=== PATIENT | female | born 1955 | race Caucasian/White ===

== ENCOUNTER 2022-02-20 06:44 | Observation (INO) | payer OTHER ==
--- OUTSIDE RECORDS SUMMARY | 2022-02-20 07:02 | XMS REPORT | Continuity of Care Document ---
:1955 Author Organization [facility] t Address [address] [place] [address] Care Team Providers Name Role Phone Raisa Chavarria Attending Clinician Unavailable Ha Hong Attending Clinician Unavailable Nicole Gonsales Attending Clinician Unavailable Payers Payer Name Policy Type Policy Number Effective Date Expiration Date [place] [address] [id number] 2019 [facility] 00:00:[address] [facility] [place] [address] [id number] 2019 [facility] Choice 00:00:[address] [facility] [place] [address] [id number] 2019 Common [facility] Choice 00:00:[address] [facility] [place] [address] [id number] 2019 Common [facility] Choice 00:00:[address] - [facility] [place] [address] [id number] 2019 Common [facility] Choice 00:00:[address] - [facility] [place] [address] [id number] 2019 Common [facility] Choice 00:00:[facility] - [facility] [place] [address] [id number] 2019 Common [facility] t [facility] Choice 00:00:00 - [facility] Problems Condition Condition Condition Status Onset Resolution Last Treating Co mments Source Name Details Category Date Date Treatment Clinician Date [id number] Abnormal Problem Comm on mammogram [facility] [id number] August's Problem Co mmon [id number] esophagus Spirit with low - [facility] grade [facility] [id number] Depression Problem Com mon , Spirit unspecifie - [facility] d depression [facility] [id number] Attention Problem Com mon deficit Spirit disorder, - [facility] unspecifie [facility] hyperactiv [facility] presence [id number] Fatty Problem Common liver [facility] Sinus Sinus Problem Common problem problem [facility] Memory Memory Problem Common deficit deficit [facility] [id number] Seasonal Problem Comm on allergies [facility] Essential Benign Problem Common hypertensi essential Spi rit on HTN [facility] Hyperglyce Hyperglyce Problem C ommon leslie leslie [facility] [id number] Anxiety Problem Common [facility] Thrombocyt Thrombocyt Problem C ommon openia openia [facility] [id number] Chronic Problem Commo n constipati Spirit on [facility] Hyperlipid Hyperlipem Problem C ommon aemia ia [facility] [id number] Chronic Problem Commo n diarrhea [facility] Leukopenia Leukopenia Problem C ommon [facility] [id number] August's Problem Com mon esophageal [facility] ulceration [facility] Allergies, Adverse Reactions, Alerts This patient has no known allergies or adverse reactions. Social History Social Habit Start Date Stop Date Quantity Comments Source History of Tobacco Use Co mmon [facility] Sex Assigned At Com mon [facility] Smoking Status Start Date Stop Date Source Never Smoker [facility] Medications Ordered Filled Start Stop Current Ordering Indication Dosage Frequency Signature Comments Components Source Medication Medication Date Date Medication? Clinician (SIG) Name Name BusPIRone BusPIRone Yes Nicole 1 tablet Common HCl HCl 7-14 Millender as needed Spiri t 00:00: for - [facility] 00 anxiety [facility] Singulair Singulair No 1{table QD Singulair 10 MG 10 MG t_in_th 10 MG e_eveni ng} Losartan Losartan No 1{table QD Losartan Potassium Potassium t} Potassium 100 mg 100 mg 100 mg amLODIPine amLODIPine No 1{table QD amLODIPine Besylate 5 Besylate 5 t} Besylate 5 MG MG MG Pravastatin Pravastatin No Pravastati Sodium 40 Sodium 40 n Sodium MG MG 40 MG Losartan Losartan No 1{table QD Losartan Potassium Potassium t} Potassium 100 mg 100 mg 100 mg busPIRone busPIRone No BID busPIRone HCl 7.5 HCl 7.5 HCl 7.5 Pantoprazol Pantoprazol No Pantoprazo e Sodium 40 e Sodium 40 le Sodium MG MG 40 MG Singulair Singulair No 1{table QD Singulair 10 MG 10 MG t_in_th 10 MG e_eveni ng} Citalopram Citalopram No 1{table QD Citalopram Hydrobromid Hydrobromid t} Hydrobromi e 20 MG e 20 MG de 20 MG Meclizine Meclizine No 1{table Meclizine HCl 25 MG HCl 25 MG t_as_ne HCl 25 MG eded} Cholestyram Cholestyram No Cholestyra ine 4 GM ine 4 GM mine 4 GM amLODIPine amLODIPine No 1{table QD amLODIPine Besylate 5 Besylate 5 t} Besylate 5 MG MG MG Pravastatin Pravastatin No Pravastati Sodium 40 Sodium 40 n Sodium MG MG 40 MG Losartan Losartan No 1{table QD Losartan Potassium Potassium t} Potassium 100 mg 100 mg 100 mg busPIRone busPIRone No BID busPIRone HCl 7.5 HCl 7.5 HCl 7.5 Pantoprazol Pantoprazol No Pantoprazo e Sodium 40 e Sodium 40 le Sodium MG MG 40 MG Singulair Singulair No 1{table QD Singulair 10 MG 10 MG t_in_th 10 MG e_eveni ng} Citalopram Citalopram No 1{table QD Citalopram Hydrobromid Hydrobromid t} Hydrobromi e 20 MG e 20 MG de 20 MG Meclizine Meclizine No 1{table Meclizine HCl 25 MG HCl 25 MG t_as_ne HCl 25 MG eded} Cholestyram Cholestyram No Cholestyra ine 4 GM ine 4 GM mine 4 GM amLODIPine amLODIPine No 1{table QD amLODIPine Besylate 5 Besylate 5 t} Besylate 5 MG MG MG Pravastatin Pravastatin No Pravastati Sodium 40 Sodium 40 n Sodium MG MG 40 MG Losartan Losartan No 1{table QD Losartan Potassium Potassium t} Potassium 100 mg 100 mg 100 mg busPIRone busPIRone No BID busPIRone HCl 7.5 HCl 7.5 HCl 7.5 Pantoprazol Pantoprazol No Pantoprazo e Sodium 40 e Sodium 40 le Sodium MG MG 40 MG Singulair Singulair No 1{table QD Singulair 10 MG 10 MG t_in_th 10 MG e_eveni ng} Citalopram Citalopram No 1{table QD Citalopram Hydrobromid Hydrobromid t} Hydrobromi e 20 MG e 20 MG de 20 MG Meclizine Meclizine No 1{table Meclizine HCl 25 MG HCl 25 MG t_as_ne HCl 25 MG eded} Cholestyram Cholestyram No Cholestyra ine 4 GM ine 4 GM mine 4 GM amLODIPine amLODIPine No 1{table QD amLODIPine Besylate 5 Besylate 5 t} Besylate 5 MG MG MG Pravastatin Pravastatin No Pravastati Sodium 40 Sodium 40 n Sodium MG MG 40 MG Losartan Losartan No 1{table QD Losartan Potassium Potassium t} Potassium 100 mg 100 mg 100 mg busPIRone busPIRone No BID busPIRone HCl 7.5 HCl 7.5 HCl 7.5 Pantoprazol Pantoprazol No Pantoprazo e Sodium 40 e Sodium 40 le Sodium MG MG 40 MG Singulair Singulair No 1{table QD Singulair 10 MG 10 MG t_in_th 10 MG e_eveni ng} Citalopram Citalopram No 1{table QD Citalopram Hydrobromid Hydrobromid t} Hydrobromi e 20 MG e 20 MG de 20 MG Meclizine Meclizine No 1{table Meclizine HCl 25 MG HCl 25 MG t_as_ne HCl 25 MG eded} Cholestyram Cholestyram No Cholestyra ine 4 GM ine 4 GM mine 4 GM Singulair Singulair No 1{table QD Singulair 10 MG 10 MG t_in_th 10 MG e_eveni ng} Pravastatin Pravastatin No Pravastati Sodium 40 Sodium 40 n Sodium MG MG 40 MG Cholestyram Cholestyram No Cholestyra ine 4 GM ine 4 GM mine 4 GM Losartan Losartan No 1{table QD Losartan Potassium Potassium t} Potassium 100 mg 100 mg 100 mg Pantoprazol Pantoprazol No Pantoprazo e Sodium 40 e Sodium 40 le Sodium MG MG 40 MG Meclizine Meclizine No 1{table Meclizine HCl 25 MG HCl 25 MG t_as_ne HCl 25 MG eded} Citalopram Citalopram No 1{table QD Citalopram Hydrobromid Hydrobromid t} Hydrobromi e 20 MG e 20 MG de 20 MG busPIRone busPIRone No BID busPIRone HCl 7.5 HCl 7.5 HCl 7.5 amLODIPine amLODIPine No 1{table QD amLODIPine Besylate 5 Besylate 5 t} Besylate 5 MG MG MG Pravastatin Pravastatin No QD Pravastati Sodium 40 Sodium 40 n Sodium MG MG 40 MG busPIRone busPIRone No BID busPIRone HCl 7.5 HCl 7.5 HCl 7.5 Vitamin D Vitamin D No 1{capsu QD Vitamin D 50 MCG 50 MCG le} 50 MCG (1999) (1999) (1999) Pantoprazol Pantoprazol No Pantoprazo e Sodium 40 e Sodium 40 le Sodium MG MG 40 MG Losartan Losartan No 1{table QD Losartan Potassium Potassium t} Potassium 100 mg 100 mg 100 mg Citalopram Citalopram No 1{table QD Citalopram Hydrobromid Hydrobromid t} Hydrobromi e 20 MG e 20 MG de 20 MG Singulair Singulair No 1{table QD Singulair 10 MG 10 MG t_in_th 10 MG e_eveni ng} amLODIPine amLODIPine No 1{table QD amLODIPine Besylate 5 Besylate 5 t} Besylate 5 MG MG MG Meclizine Meclizine No 1{table Meclizine HCl 25 MG HCl 25 MG t_as_ne HCl 25 MG eded} Cholestyram Cholestyram No Cholestyra ine 4 GM ine 4 GM mine 4 GM Singulair Singulair No 1{table QD Singulair 10 MG 10 MG t_in_th 10 MG e_eveni ng} Vitamin D Vitamin D No 1{capsu QD Vitamin D 50 MCG 50 MCG le} 50 MCG (1999) (1999) (1999) amLODIPine amLODIPine No 1{table QD amLODIPine Besylate 5 Besylate 5 t} Besylate 5 MG MG MG Cholestyram Cholestyram No Cholestyra ine 4 GM ine 4 GM mine 4 GM Pantoprazol Pantoprazol No Pantoprazo e Sodium 40 e Sodium 40 le Sodium MG MG 40 MG busPIRone busPIRone No BID busPIRone HCl 7.5 HCl 7.5 HCl 7.5 Losartan Losartan No 1{table QD Losartan Potassium Potassium t} Potassium 100 mg 100 mg 100 mg Pravastatin Pravastatin No QD Pravastati Sodium 40 Sodium 40 n Sodium MG MG 40 MG Meclizine Meclizine No 1{table Meclizine HCl 25 MG HCl 25 MG t_as_ne HCl 25 MG eded} Citalopram Citalopram No 1{table QD Citalopram Hydrobromid Hydrobromid t} Hydrobromi e 20 MG e 20 MG de 20 MG busPIRone busPIRone No BID busPIRone HCl 7.5 HCl 7.5 HCl 7.5 Montelukast Montelukast No Montelukas Sodium 10 Sodium 10 t Sodium MG MG 10 MG Meclizine Meclizine No 1{table Meclizine HCl 25 MG HCl 25 MG t_as_ne HCl 25 MG eded} Pravastatin Pravastatin No QD Pravastati Sodium 40 Sodium 40 n Sodium MG MG 40 MG Losartan Losartan No 1{table QD Losartan Potassium Potassium t} Potassium 100 mg 100 mg 100 mg amLODIPine amLODIPine No amLODIPine Besylate 5 Besylate 5 Besylate 5 MG MG MG Citalopram Citalopram No 1{table QD Citalopram Hydrobromid Hydrobromid t} Hydrobromi e 20 MG e 20 MG de 20 MG Vitamin D Vitamin D No 1{capsu QD Vitamin D 50 MCG 50 MCG le} 50 MCG (1999) (1999) (1999) Cholestyram Cholestyram No Cholestyra ine 4 GM ine 4 GM mine 4 GM Pantoprazol Pantoprazol No Pantoprazo e Sodium 40 e Sodium 40 le Sodium MG MG 40 MG Cholestyram Cholestyram No Cholestyra ine 4 GM ine 4 GM mine 4 GM Pantoprazol Pantoprazol No Pantoprazo e Sodium 40 e Sodium 40 le Sodium MG MG 40 MG Pravastatin Pravastatin No QD Pravastati Sodium 40 Sodium 40 n Sodium MG MG 40 MG amLODIPine amLODIPine No amLODIPine Besylate 5 Besylate 5 Besylate 5 MG MG MG Vitamin D Vitamin D No 1{capsu QD Vitamin D 50 MCG 50 MCG le} 50 MCG (1999) (1999) (1999) Montelukast Montelukast No Montelukas Sodium 10 Sodium 10 t Sodium MG MG 10 MG Citalopram Citalopram No 1{table QD Citalopram Hydrobromid Hydrobromid t} Hydrobromi e 20 MG e 20 MG de 20 MG Meclizine Meclizine No 1{table Meclizine HCl 25 MG HCl 25 MG t_as_ne HCl 25 MG eded} busPIRone busPIRone No BID busPIRone HCl 7.5 HCl 7.5 HCl 7.5 Losartan Losartan No Losartan Potassium Potassium Potassium 100 MG 100 MG 100 MG B-12 1000 B-12 1000 No 1{table QD B-12 1000 MCG MCG t_under MCG _the_to ngue_an d_allow _to_dis solve} Magnesium Magnesium No 1{table QD Magnesium 250 MG 250 MG t_with_ 250 MG a_meal} Vitamin D3 Vitamin D3 No 1{capsu QD Vitamin D3 50 MCG 50 MCG le} 50 MCG (1999) (1999) (1999) Pravastatin Pravastatin No QD Pravastati Sodium 40 Sodium 40 n Sodium MG MG 40 MG Losartan Losartan No 1{table QD Losartan Potassium Potassium t} Potassium 100 mg 100 mg 100 mg busPIRone busPIRone No BID busPIRone HCl 7.5 HCl 7.5 HCl 7.5 Meclizine Meclizine No 1{table Meclizine HCl 25 MG HCl 25 MG t_as_ne HCl 25 MG eded} Citalopram Citalopram No 1{table QD Citalopram Hydrobromid Hydrobromid t} Hydrobromi e 20 MG e 20 MG de 20 MG Zinc 50 MG Zinc 50 MG No 1{table QD Zinc 50 MG t} Vitamin C Vitamin C No Vitamin C 500 MG 500 MG 500 MG amLODIPine amLODIPine No 1{table QD amLODIPine Besylate 5 Besylate 5 t} Besylate 5 MG MG MG Singulair Singulair No 1{table QD Singulair 10 MG 10 MG t_in_th 10 MG e_eveni ng} Probiotic - Probiotic - No Probiotic - B-12 1000 B-12 1000 No 1{table QD B-12 1000 MCG MCG t_under MCG _the_to ngue_an d_allow _to_dis solve} Magnesium Magnesium No 1{table QD Magnesium 250 MG 250 MG t_with_ 250 MG a_meal} Vitamin D3 Vitamin D3 No 1{capsu QD Vitamin D3 50 MCG 50 MCG le} 50 MCG (1999) (1999) (1999) Pravastatin Pravastatin No QD Pravastati Sodium 40 Sodium 40 n Sodium MG MG 40 MG Losartan Losartan No 1{table QD Losartan Potassium Potassium t} Potassium 100 mg 100 mg 100 mg busPIRone busPIRone No BID busPIRone HCl 7.5 HCl 7.5 HCl 7.5 Meclizine Meclizine No 1{table Meclizine HCl 25 MG HCl 25 MG t_as_ne HCl 25 MG eded} Citalopram Citalopram No 1{table QD Citalopram Hydrobromid Hydrobromid t} Hydrobromi e 20 MG e 20 MG de 20 MG Zinc 50 MG Zinc 50 MG No 1{table QD Zinc 50 MG t} Vitamin C Vitamin C No Vitamin C 500 MG 500 MG 500 MG amLODIPine amLODIPine No 1{table QD amLODIPine Besylate 5 Besylate 5 t} Besylate 5 MG MG MG Singulair Singulair No 1{table QD Singulair 10 MG 10 MG t_in_ 10 MG e_eveni ng} Probiotic - Probiotic - No Probiotic - amLODIPine amLODIPine No 1{table QD amLODIPine Besylate 5 Besylate 5 t} Besylate 5 MG MG MG Pantoprazol Pantoprazol No Pantoprazo e Sodium 40 e Sodium 40 le Sodium MG MG 40 MG busPIRone busPIRone No BID busPIRone HCl 7.5 HCl 7.5 HCl 7.5 Meclizine Meclizine No 1{table Meclizine HCl 25 MG HCl 25 MG t_as_ne HCl 25 MG eded} Cholestyram Cholestyram No Cholestyra ine 4 GM ine 4 GM mine 4 GM Pravastatin Pravastatin Yes Nicole 1 tablet Common Sodium Sodium Millender in evening [facility] Amlodipine Amlodipine Yes Nicole 1 tablet Common Besylate Besylate Millender Sp bal [facility] Meclizine Meclizine Yes Nicole 1 tablet Common HCl HCl Millender as needed Spiri t - [facility] Montelukast Montelukast Yes Nicole 1 tablet Common Sodium Sodium Millender in the Spir it evening [facility] Singulair Singulair Yes Nicole 1 tablet Common Millender in the Spirit evening [facility] Losartan Losartan Yes Nicole 1 tablet Co mmon Potassium Potassium Millender [facility] Pravastatin Pravastatin No QD Pravastati Sodium 40 Sodium 40 n Sodium MG MG 40 MG Citalopram Citalopram No 1{table QD Citalopram Hydrobromid Hydrobromid t} Hydrobromi e 20 MG e 20 MG de 20 MG Immunizations Ordered Immunization Filled Immunization Date Status Commen ts Source Name Name Moderna COVID-19 Moderna COVID-19 2021-01-02 Completed Co mmon [facility] Vaccine Vaccine 15:06:00 [facility] Moderna COVID-19 Moderna COVID-19 2021-01-02 Completed Co mmon [facility] Vaccine Vaccine 15:06:00 [facility] Moderna COVID-19 Moderna COVID-19 2021-01-02 Completed Co mmon [facility] Vaccine Vaccine 15:06:00 [facility] Moderna COVID-19 Moderna COVID-19 2020-07-11 Completed Co mmon [facility] Vaccine Vaccine 15:08:00 [facility] Moderna COVID-19 Moderna COVID-19 2020-07-11 Completed Co mmon [facility] Vaccine Vaccine 15:08:00 [facility] Moderna COVID-19 Moderna COVID-19 2020-07-11 Completed Co mmon [facility] Vaccine Vaccine 15:08:00 [facility] Moderna COVID-19 Moderna COVID-19 2020-06-05 Completed Co mmon [facility] Vaccine Vaccine 15:11:00 [facility] Moderna COVID-19 Moderna COVID-19 2020-06-05 Completed Co mmon [facility] Vaccine Vaccine 15:11:00 [facility] Moderna COVID-19 Moderna COVID-19 2020-06-05 Completed Co mmon [facility] Vaccine Vaccine 15:11:00 - [facility] Vital Signs Vital Name Observation Time Observation Value Comments Source height 2021-10-19 14:00:00 67 [in_i] Common [facility] weight 2021-10-19 14:00:00 184 [lb_av] [facility] temperature 2021-10-19 14:00:00 97.9 [degF] Common [facility] bmi 2021-10-19 14:00:00 28.82 kg/m2 [facility] oximetry 2021-10-19 14:00:00 98 % [facility] respiratory rate 2021-10-19 14:00:00 18 /min Comm on [facility] blood pressure 2021-10-19 14:00:00 138 mm[Hg] [facility] - systolic [facility] blood pressure 2021-10-19 14:00:00 70 mm[Hg] Common [facility] - diastolic [facility] height 2021-07-05 14:00:00 67 [in_i] [facility] weight 2021-07-05 14:00:00 181 [lb_av] [facility] temperature 2021-07-05 14:00:00 97.0 [degF] [facility] bmi 2021-07-05 14:00:00 28.35 kg/m2 [facility] oximetry 2021-07-05 14:00:00 99 % [facility] respiratory rate 2021-07-05 14:00:00 16 /min Comm on [facility] blood pressure 2021-07-05 14:00:00 124 mm[Hg] Common [facility] - systolic [facility] blood pressure 2021-07-05 14:00:00 64 mm[Hg] Common [facility] - diastolic [facility] height 2021-05-12 13:00:00 67 [in_i] Common [facility] weight 2021-05-12 13:00:00 176 [lb_av] Common [facility] temperature 2021-05-12 13:00:00 96.9 [degF] Common [facility] bmi 2021-05-12 13:00:00 27.56 kg/m2 Common [facility] blood pressure 2021-05-12 13:00:00 128 mm[Hg] Common [facility] - systolic [facility] blood pressure 2021-05-12 13:00:00 58 mm[Hg] Common [facility] - diastolic [facility] height 2021-02-09 10:00:00 67 [in_i] Common [facility] weight 2021-02-09 10:00:00 177 [lb_av] [facility] temperature 2021-02-09 10:00:00 98.1 [degF] [facility] bmi 2021-02-09 10:00:00 27.72 kg/m2 [facility] oximetry 2021-02-09 10:00:00 99 % [facility] respiratory rate 2021-02-09 10:00:00 16 /min Comm on [facility] blood pressure 2021-02-09 10:00:00 134 mm[Hg] Common [facility] - systolic [facility] blood pressure 2021-02-09 10:00:00 69 mm[Hg] Common [facility] - diastolic [facility] Procedures This patient has no known procedures. Encounters Start End Encounter Admission Attending Care Care Encounter Source Date/Time Date/Time Type Type Clinicians Facility Department ID 2022-01-19 Outpatient MelletteHALINA trevino [facility] [id number] Common 09:21:01 Raisa [facility] 2022-01-14 [facility] [id number] Common 08:49:00 Raisa [facility] 2021-07-01 Outpatient MelletteHALINA trevino [facility] [id number] Common 10:53:00 Raisa [facility] 2021-05-26 Outpatient Mellette, STLMLC STLMLC [id number] Common 14:33:34 Raisa [facility] 2021-05-26 Outpatient Mellette, STLMLC STLMLC [id number] Common 12:21:49 Raisa [facility] 2021-05-26 Outpatient Mellette, STLMLC STLMLC [id number] Common 12:20:26 Raisa [facility] 2021-05-26 Outpatient Hal, Ha STLMLC STLMLC [id number] Common 12:12:20 [id number] [facility] 2021-05-26 Outpatient STLMLC STLMLC [id number] Common 12:11:22 [id number] [facility] 2021-05-26 Outpatient Millender, STLMLC STLMLC [id number] Common 11:56:30 Nicole [id number] [facility] 2021-05-26 Outpatient Millender, STLMLC STLMLC [id number] Common 11:06:46 Nicole [id number] [facility] 2021-05-26 Outpatient Millender, STLMLC STLMLC [id number] Common 11:04:09 Nicole [id number] [facility] 2021-05-26 Outpatient Millender, STLMLC STLMLC [id number] Common 11:03:53 Nicole [id number] [facility] 2021-05-26 Outpatient Millender, STLMLC STLMLC [id number] Common 11:02:30 Nicole [id number] [facility] 2021-05-26 Outpatient Millender, STLMLC STLMLC [id number] Common 10:59:33 Nicole [id number] [facility] 2022-01-17 2022-01-17 (TEL) STLMLC STLMLC [id number] Co mmon 00:00:00 00:00:00 [facility] 2021-10-19 2021-10-19 OFFICE STLMLC STLMLC [id number] Co mmon 00:00:00 00:00:00 VISIT EST Spir it PT LEVEL 3 - [facility] 2021-07-05 2021-07-05 OFFICE STLMLC STLMLC [id number] Co mmon 00:00:00 00:00:[address] [facility] ESTAB PT - CHI LEVEL 4 [facility] 2021-05-12 2021-05-12 OFFICE STLMLC STLMLC [id number] Co mmon 00:00:00 00:00:[address] [facility] ESTAB PT - CHI LEVEL 4 [facility] 2021-04-29 2021-04-29 (TEL) STLMLC STLMLC [id number] Co mmon 00:00:00 00:00:00 [facility] 2021-03-30 2021-03-30 (TEL) STLMLC STLMLC [id number] Co mmon 00:00:00 00:00:00 [facility] 2021-03-29 2021-03-29 (TEL) STLMLC STLMLC [id number] Co mmon 00:00:00 00:00:00 [facility] 2021-03-26 2021-03-26 (TEL) STLMLC STLMLC [id number] Co mmon 00:00:00 00:00:00 [facility] 2021-03-22 2021-03-22 (TEL) STLMLC STLMLC [id number] Co mmon 00:00:00 00:00:00 [facility] 2021-02-09 2021-02-09 OFFICE STLMLC STLMLC [id number] Co mmon 00:00:00 00:00:[address] [facility] ESTAB PT - CHI LEVEL 4 [facility] 2020-11-30 2020-11-30 (TEL) STLMLC STLMLC [id number] Co mmon 00:00:00 00:00:00 [facility] 2020-11-27 2020-11-27 (TEL) STLMLC STLMLC [id number] Co mmon 00:00:00 00:00:00 [facility] 2020-08-25 2020-08-25 Outpatient STLMLC STLMLC [id number] Common 00:00:00 00:00:00 [facility] 2020-08-11 2020-08-11 Outpatient STLMLC STLMLC [id number] Common 00:00:00 00:00:00 [facility] 2020-06-19 2020-06-19 Outpatient STLMLC STLMLC [id number] Common 00:00:00 00:00:00 [facility] 2020-05-19 2020-05-19 Outpatient STLMLC STLMLC [id number] Common 00:00:00 00:00:00 [facility] 2020-02-19 2020-02-19 Outpatient STLMLC STLMLC [id number] Common 00:00:00 00:00:00 [facility] 2019-11-12 2019-11-12 [id number] Common 11:00:00 11:00:00 t [facility] Road [facility] 2019-11-11 2019-11-11 [facility] [id number] Common 11:29:00 11:29:[address] [facility] [address] [facility] it Road [facility] 2019-06-13 2019-06-13 [facility] [id number] Common 08:25:00 08:25:[address] [facility] [address] [facility] it Road [facility] 2019-06-11 2019-06-11 Outpatient [facility] [id number] Common 11:15:00 11:15:[address] [facility] [address] [facility] it Road [facility] 2019-05-30 2019-05-30 [facility] [id number] Common 14:30:00 14:30:[address] [facility] [address] [facility] it Road [facility] 2019-05-10 2019-05-10 [facility] [id number] Common 08:20:00 08:20:[address] [facility] [address] [facility] it Road [facility] 2017-08-14 2017-08-14 [facility] [id number] Common 10:15:00 10:15:00 [facility] 2017-08-02 2017-08-02 Outpatient Asiya Banerjee [id number] Common 13:30:00 13:30:00 [facility] Results This patient has no known results.
[2022-02-20 07:33] LABS: Absolute Lymphocytes (CBC) 1.3 K/uL (0.7-4.9); Hematocrit 39.9 % (36.0-45.0); Lymphocytes % 31.4 % (15.3-44.8); MCV 95.3 fL (80-100); MPV 9.8 fL (7.6-11.3); RBC Red Blood Cell Count 4.19 M/uL (3.86-4.86)
[2022-02-20 07:41] LABS: SARS-CoV-2 Antigen Rapid Res Negative (Negative)
[2022-02-20 07:50] LABS: Albumin 3.6 g/dL (3.4-5.0); Bilirubin Direct 0.2 mg/dL (0-0.2); Bilirubin Total 0.7 mg/dL (0.2-1.0); Protein, Total 7.2 g/dL (6.4-8.2); Troponin High Sensitivity 7.1 pg/mL (<58.9)
--- NOTE | 2022-02-20 08:21 | RAD REPORT ---
EXAM DESCRIPTION: RAD - Chest Single View - 02/20/2022 8:04 am CLINICAL HISTORY: CHEST PAIN COMPARISON: Chest Single View dated 01/02/2017; Chest Single View dated 01/02/2017; Chest Single View da mukesh 12/09/2015 FINDINGS: Lines: None. Lungs: No evidence of edema or pneumonia. Pleural: No significant pleural effusions or pneumothorax. Cardiac: The heart size is within normal limits. Mediastinum: Within normal limits. Bones: No acute fractures. Other: None IMPRESSION: No acute cardiopulmonary disease.
--- NOTE | 2022-02-20 08:33 | RAD REPORT ---
EXAM DESCRIPTION: CT - Chest For Pe Angio - 02/20/2022 8:22 am CLINICAL HISTORY: chest pain, elevated d-dimer COMPARISON: Chest Single View dated 02/20/2022 TECHNIQUE: Dynamically enhanced axial 3 mm thick images of the chest were obtained during administra tion of <100> mL Isovue 370 IV contrast. Coronal and oblique reconstruction images were generated and reviewed. Exam utilizes a protocol for optimal evaluation of pulmonary arterial tree. Maximum intensity projections 3D imaging was utilized All CT scans are performed using dose optimization technique as appropriate and may include automated exposure control or mA/KV adjustment according to patient size. FINDINGS: Chest Wall: No suspicious thyroid nodules or pathologic lymphadenopathy. Lungs: No acute abnormality. Pleura: No significant effusions or pneumothorax. Mediastinum/zeina: No pathologic lymphadenopathy. Pulmonary arteries/Aorta: No filling defect identified. No aortic aneurysm. Heart: No significant pericardial effusion. Normal heart size. Upper abdomen: No acute abnormality.Cholecystectomy. Bones: No acute abnormality. IMPRESSION: Negative for pulmonary embolism. No other acute findings in the chest.
--- NOTE | 2022-02-20 08:58 | EDPHYS ---
Physician Documentation [facility] Name: Korin Coon Age: 66 yrs Sex: Female : 1955 Arrival Date: 02/20/2022 Time: 06:52 Bed 5 Private MD: ED Physician Lopez Gomes HPI: 02/20 07:11 This 66 yrs old Female presents to ER via Unassigned with complaints of Chest Pressure, rn Arm Pain. 07:11 The patient or guardian reports chest pain that is located primarily in the substernal rn area. Onset: last night. The pain radiates to the left arm. Associated signs and symptoms: Pertinent positives: None. Pertinent negatives: abdominal pain, cough, diaphoresis, headache, palpitations, shortness of breath, syncope, vomiting. The chest pain is described as dull, a heaviness. Duration: The patient or guardian reports multiple episodes, that are intermittent. Modifying factors: The symptoms are alleviated by nothing. the symptoms are aggravated by nothing. Severity of pain: At its worst the pain was mild in the emergency department the pain has improved. The patient has not experienced similar symptoms in the past. The patient has not recently seen a physician. Pt reports chest heaviness/dull, began last night, intermittent, mild. Has also been having left arm tingling but states arm is more constant and present for 1 week. No fever/cough/sob. No hx of cardiac event. Is making appt with Dr. carrasco but hasn't seen him recently. Pt states has been feeling very stressed lately and feels like this is stress related.. Historical: - Allergies: 07:15 No Known Allergies; bb - Home Meds: 07:15 amlodipine 5 mg tab 1 tab once daily [Active]; losartan 100 mg Oral tab 1 tab once bb daily [Active]; montelukast 10 mg Oral tab 1 tab once daily [Active]; pravastatin 40 mg Oral tab 1 tab once daily [Active]; buspirone 7.5 mg Oral tab [Active]; Celexa 10 mg Oral tab 1 tab once daily [Active]; Protonix Oral [Active]; cholestyramine (with sugar) oral [Active]; - PMHx: 07:15 Depression; Hyperlipidemia; Hypertension; Vertigo; bb - Immunization history:: Moderna x 3. - Social history:: Smoking status: Patient denies any tobacco usage or history of. Patient/guardian denies using alcohol, street drugs. - Family history:: not pertinent. - Hospitalizations: : No recent hospitalization is reported. ROS: 07:11 Constitutional: Negative for fever, chills, and weight loss, Eyes: Negative for injury, rn pain, redness, and discharge, Neck: Negative for injury, pain, and swelling, Cardiovascular: Negative for palpitations, and edema, Respiratory: Negative for shortness of breath, cough, wheezing, and pleuritic chest pain, Abdomen/GI: Negative for abdominal pain, nausea, vomiting, diarrhea, and constipation, Back: Negative for injury and pain, MS/Extremity: Negative for injury and deformity, Skin: Negative for injury, rash, and discoloration, Neuro: Negative for headache, weakness and seizure Exam: 07:11 Constitutional: This is a well developed, well nourished patient who is awake, alert, rn and in no acute distress. Ambulatory to room without difficulty Head/Face: Normocephalic, atraumatic. Eyes: Pupils equal round and reactive to light, extra-ocular motions intact. Periorbital areas with no swelling, redness, or edema. Cardiovascular: Regular rate and rhythm. No pulse deficits. Respiratory: No increased work of breathing, no retractions or nasal flaring. Abdomen/GI: Soft, non-tender Skin: Warm, dry MS/ Extremity: Pulses equal, no cyanosis. Neuro: Awake and alert, GCS 15, oriented to person, place, time, and situation. Cranial nerves II-XII grossly intact. Motor strength 5/5 in all extremities. Sensory grossly intact. Cerebellar exam normal. Normal gait. 07:19 ECG was reviewed by the Attending Physician. rn Vital Signs: 07:13 BP 143 / 99; Pulse 78; Resp 16 S; Temp 98.6(O); Pulse Ox 99% on R/A; Weight 83.91 kg bb (R); Height 5 ft. 6 in. (167.64 cm) (R); Pain 0/10; 07:15 BP 155 / 80; Pulse 73; Resp 14; Pulse Ox 100% on R/A; ld1 11:08 BP 142 / 79; Pulse 63; Resp 15; Pulse Ox 100% on R/A; Pain 0/10; ld1 07:13 Body Mass Index 29.86 (83.91 kg, 167.64 cm) bb MDM: 06:58 Patient medically screened. rn 08:54 HEART Score: History: Moderately Suspicious (1), ECG: Non specific repolarization rn disturbance / LBTB / PM (1), Age: > or = 65 years (2), Risk Factors: 1 or 2 risk factors (1), Troponin: < or = 1 x Normal Limit (0), Total Score = 5. Data reviewed: vital signs, nurses notes. 08:55 Differential diagnosis: acute myocardial infarction, acute pericarditis, anxiety, rn coronary artery disease costochondritis, esophagitis, gastritis, gastroesophageal reflux disease (GERD), pericarditis, pleurisy, pneumothorax, pulmonary embolus, stable angina. The patient was given aspirin in the Emergency Department. Counseling: I had a detailed discussion with the patient and/or guardian regarding: the historical points, exam findings, and any diagnostic results supporting the discharge/admit diagnosis, lab results, radiology results, the need for further work-up and treatment in the hospital. Admission orders: after a detailed discussion of the patient's condition and case, the admit orders are written by me. 02/20 07:10 Order name: Basic Metabolic Panel; Complete Time: 07:55 rn 02/20 07:10 Order name: CBC with Diff rn 02/20 07:10 Order name: D-Dimer; Complete Time: 07:55 rn 02/20 07:10 Order name: LFT's; Complete Time: 07:55 rn 02/20 07:10 Order name: NT PRO-BNP; Complete Time: 07:55 rn 02/20 07:10 Order name: Troponin HS; Complete Time: 07:55 rn 02/20 07:10 Order name: XRAY Chest (1 view); Complete Time: 08:35 rn 02/20 07:10 Order name: EKG; Complete Time: 07:11 rn 02/20 07:10 Order name: SARS RAPID rn 02/20 07:40 Order name: CBC with Automated Diff; Complete Time: 07:55 EDMS 02/20 07:41 Order name: SARS-COV-2 Antigen Rapid; Complete Time: 07:55 EDMS 02/20 07:56 Order name: CT Chest For PE Angio; Complete Time: 08:35 rn 02/20 07:10 Order name: Cardiac monitoring; Complete Time: 07:11 rn 02/20 07:10 Order name: EKG - Nurse/Tech; Complete Time: 07: rn 02/20 07:10 Order name: IV Saline Lock; Complete Time: : rn 02/20 07:10 Order name: Labs collected and sent; Complete Time: : rn 02/20 07:10 Order name: O2 Per Protocol; Complete Time: : rn 02/20 07:10 Order name: O2 Sat Monitoring; Complete Time: 07: rn EC: Rate is 71 beats/min. Rhythm is regular. Left axis deviation noted. QRS is positive in rn lead I and negative in lead aVF. ND interval is normal. QRS interval is normal. QT interval is normal. No Q waves. T waves are Normal. No ST changes noted. Clinical impression: NSR w/ Non-specific ST/T Changes. Interpreted by me. Reviewed by me. Administered Medications: 09:19 Drug: GI Cocktail without - (Maalox Suspension 30 ml, Lidocaine Liquid 2 % 15 ld1 ml) Route: PO; 09:20 Drug: Aspirin Chewable Tablet 324 mg Route: PO; ld1 Disposition Summary: 02/20/22 08:58 Hospitalization Ordered Hospitalization Status: Observation rn Provider: Julián Anthony rn Location: Telemetry/MedSurg (observation) rn Condition: Stable rn Problem: new rn Symptoms: have improved rn Bed/Room Type: Standard rn Room Assignment: 424(02/20/22 11:28) eb Diagnosis - Chest pain, unspecified rn Forms: - Medication Reconciliation Form rn - SBAR form rn Signatures: Dispatcher [employer] Nicolasa Pack RN RN Lopez Donovan MD MD rn Botello, Elizabeth eb Dibbern, Lauren, RN RN ld1 Corrections: (The following items were deleted from the chart) 11: 08:58 rn eb
--- NOTE | 2022-02-20 08:58 | ER ---
Nurse's Notes [facility] Name: Korin Coon Age: 66 yrs Sex: Female : 1955 Arrival Date: 02/20/2022 Time: 06:52 Bed 5 Private MD: Diagnosis: Chest pain, unspecified Presentation: 02/20 07:13 Chief complaint: Patient states: she has had left arm numbness for a week and has been bb feeling some chest discomfort with nausea and she is not sure if it's her heart or a panic attack as she has been feeling very stressed. Coronavirus screen: At this time, the client does not indicate any symptoms associated with coronavirus-19. Ebola Screen: No symptoms or risks identified at this time. Initial Sepsis Screen: Does the patient meet any 2 criteria? No. Patient's initial sepsis screen is negative. Does the patient have a suspected source of infection? No. Patient's initial sepsis screen is negative. Risk Assessment: Do you want to hurt yourself or someone else? Patient reports no desire to harm self or others. Onset of symptoms was January 2022. 07:13 Method Of Arrival: Ambulatory bb 07:13 Acuity: MAYCOL 3 bb Historical: - Allergies: 07:15 No Known Allergies; bb - Home Meds: 07:15 amlodipine 5 mg tab 1 tab once daily [Active]; losartan 100 mg Oral tab 1 tab once bb daily [Active]; montelukast 10 mg Oral tab 1 tab once daily [Active]; pravastatin 40 mg Oral tab 1 tab once daily [Active]; buspirone 7.5 mg Oral tab [Active]; Celexa 10 mg Oral tab 1 tab once daily [Active]; Protonix Oral [Active]; cholestyramine (with sugar) oral [Active]; - PMHx: 07:15 Depression; Hyperlipidemia; Hypertension; Vertigo; bb - Immunization history:: Moderna x 3. - Social history:: Smoking status: Patient denies any tobacco usage or history of. Patient/guardian denies using alcohol, street drugs. - Family history:: not pertinent. - Hospitalizations: : No recent hospitalization is reported. Screenin:15 Abuse screen: Denies threats or abuse. Denies injuries from another. Nutritional ld1 screening: No deficits noted. Tuberculosis screening: No symptoms or risk factors identified. Fall Risk None identified. Assessment: 07:15 General: Appears in no apparent distress. comfortable, Behavior is calm, cooperative, ld1 appropriate for age. Pain: Complains of pain in chest Pain does not radiate. Pain currently is 5 out of 10 on a pain scale. Quality of pain is described as throbbing, Pain began suddenly, Is intermittent. Neuro: Level of Consciousness is awake, alert, obeys commands, Oriented to person, place, time, situation. Cardiovascular: Capillary refill < 3 seconds Patient's skin is warm and dry. Rhythm is sinus rhythm. Respiratory: Airway is patent Respiratory effort is even, unlabored. GI: Abdomen is flat, non-distended. 07:15 : No signs and/or symptoms were reported regarding the genitourinary system. EENT: No ld1 signs and/or symptoms were reported regarding the EENT system. Derm: No signs and/or symptoms reported regarding the dermatologic system. Musculoskeletal: No signs and/or symptoms reported regarding the musculoskeletal system. Vital Signs: 07:13 BP 143 / 99; Pulse 78; Resp 16 S; Temp 98.6(O); Pulse Ox 99% on R/A; Weight 83.91 kg bb (R); Height 5 ft. 6 in. (167.64 cm) (R); Pain 0/10; 07:15 BP 155 / 80; Pulse 73; Resp 14; Pulse Ox 100% on R/A; ld1 11:08 BP 142 / 79; Pulse 63; Resp 15; Pulse Ox 100% on R/A; Pain 0/10; ld1 07:13 Body Mass Index 29.86 (83.91 kg, 167.64 cm) bb ED Course: 06:52 Patient arrived in ED. ja2 06:58 Lopez Gomes MD is Attending Physician. rn 07:11 Sharon Sewell, CARIDAD is Primary Nurse. ld1 07:15 Triage completed. bb 07:15 Arm band placed on Patient placed in an exam room, on a stretcher, on compliance monitor, bb on pulse oximetry. EKG completed in triage. Results shown to MD. 07:15 Patient has correct armband on for positive identification. Placed in gown. Bed in low ld1 position. Call light in reach. Side rails up X2. manager monitoring on. Pulse ox on. NIBP on. Door closed. Noise minimized. Warm blanket given. 07:15 No provider procedures requiring assistance completed. Patient maintains SpO2 ld1 saturation greater than 95% on room air. 07:19 Inserted saline lock: 20 gauge in left antecubital area, using aseptic technique. Blood ld1 collected. 07:27 SARS RAPID Sent. ld1 08:06 XRAY Chest (1 view) In Process Unspecified. EDMS 08:24 CT Chest For PE Angio In Process Unspecified. EDMS 08:57 Julián Anthony is Hospitalizing Provider. rn 11:49 Patient admitted, IV remains in place. ld1 Administered Medications: 09:19 Drug: GI Cocktail without - (Maalox Suspension 30 ml, Lidocaine Liquid 2 % 15 ld1 ml) Route: PO; 09:20 Drug: Aspirin Chewable Tablet 324 mg Route: PO; ld1 Medication: 07:15 VIS not applicable for this client. ld1 Outcome: 08:58 Decision to Hospitalize by Provider. rn 11:49 Admitted to Med/surg accompanied by nurse, via wheelchair, room 424, with chart, Report ld1 called to CARIDAD Galindo 11:49 Condition: stable 11:49 Instructed on the need for admit. 12:08 Patient left the ED. ld1 Signatures: Dispatcher [employer] Nicolasa Pack RN RN bb Nieto, Roman, MD MD rn Dibbern, Lauren, RN RN ld1 Lana Bowers
[2022-02-20] MEDS ORDERED: ASPIRIN 81 MG CHEWABLE TABLET ONE (09:04)
[2022-02-20] MEDS ORDERED: MAGNES/ALUMIN/SIMET 30ML UCUP ONE (09:04)
[2022-02-20] MEDS ORDERED: LIDOCAINE VISCOUS 2% SOLN 15 ML UDC ONE (09:04)
--- NOTE | 2022-02-20 11:30 | P.HP ---
Certification for Inpatient Patient admitted to: Observation With expected LOS: <2 Midnights Practitioner: I am a practitioner with admitting privileges, knowledge of patient current condition, hospital course, and medical plan of care. Services: Services provided to patient in accordance with Admission requirements found in Title 42 Section 412.3 of the Code of Federal Regulations Patient History Date of Service: 02/20/22 Reason for admission: Chest tightness History of Present Illness: 66-year-old man with a history of hypertension hyperlipidemia presented to the emergency department with a complaint of chest tightness and tingling sensation in the left which has been present since last night. Patient states that his symptoms were preceded by bouts of anxiety attacks. She states that she has a stressful job. She denies shortness of breath or coughing or abdominal pain. Initial troponin in the ED is negative. EKG demonstrates sinus rhythm with right bundle branch block and nondiagnostic for ischemia. D-dimer was elevated. CTA thorax done negative for pulmonary embolism or acute infiltrate. Her last stress test and echocardiogram were in 2017 and they were unremarkable. Patient is placed on observation for ACS rule out. Allergies No Known Allergies Allergy (Verified 01/02/17 22:22) Home Medications: Losartan Potassium 100 mg PO DAILY 12/09/15 Montelukast Sodium [Singulair] 10 mg PO DAILY 12/09/15 Pravastatin [Pravachol*] 40 mg PO BEDTIME 12/09/15 Amlodipine [Norvasc*] 5 mg PO DAILY #30 tab 12/10/15 Ciprofloxacin HCl [Cipro 500 MG Tablet] 55 mg PO BID 01/02/17 Citalopram Hydrobromide [Citalopram HBr] 20 mg PO DAILY 01/02/17 Hydrocodone 7.5/APAP 325 [Rule 7.5/325 mg*] 1 tab PO Q4H PRN tab 01/05/17 - Past Medical/Surgical History Diabetic: No -: Hypertension -: Vertigo -: Hyperlipidemia -: ADD -: Allergic rhinitis -: History of migraines -: History of IV drug use, 20 years ago -: Tubal ligation Psychosocial/ Personal History: Patient is currently . She has 3 children. 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 - Family History Mother -: Stroke Father -: Hypertension, Diabetes, Cancer Notes: esophageal cancer - Social History Alcohol use: No CD- Drugs: No Caffeine use: Yes Review of Systems Other: Except as documented, all other systems reviewed and negative. Physical Examination - Physical Exam General: Alert, In no apparent distress, Oriented x3 HEENT: Mucous membr. moist/pink Neck: Supple, JVD not distended Respiratory: Clear to auscultation bilaterally, Normal air movement Cardiovascular: No edema, Regular rate/rhythm, Normal S1 S2 Gastrointestinal: Normal bowel sounds, Soft and benign, Non-distended, No tenderness Musculoskeletal: No swelling, No tenderness Integumentary: No rashes, No cyanosis Neurological: Normal strength at 5/5 x4 extr, Cranial nerves 3-12 intact Lymphatics: No axilla or inguinal lymphadenopathy - Studies Laboratory Data (last 24 hrs) 02/20/22 07:19: WBC 4.20 L, Hgb 13.4, Hct 39.9, Plt Count 133 L 02/20/22 07:19: Sodium 142, Potassium 4.0, BUN 19 H, Creatinine 0.90, Glucose 112 H, Total Bilirubin 0.7, AST 24, ALT 38, Alkaline Phosphatase 102 Assessment and Plan - Problems (Diagnosis) (1) Chest tightness Current Visit: Yes Status: Acute (2) Right bundle branch block (RBBB) on electrocardiogram (ECG) Onset Date: 12/10/15 Current Visit: No Status: Acute (3) Hyperlipidemia Onset Date: 12/10/15 Current Visit: No Status: Chronic Qualifiers: (4) Hypertension Onset Date: 12/10/15 Current Visit: No Status: Chronic (5) Anxiety disorder Current Visit: Yes Status: Acute - Plan Placed under observation and telemetry. Trend troponin. Aspirin Check lipid profile. Symptoms management-Xanax as needed for anxiety. Continue home medications for GERD. Will obtain nuclear stress test if troponin trend negative. - Advance Directives Does patient have a Living Will: No Does patient have a Durable POA for Healthcare: No
[2022-02-20] MEDS ORDERED: NITROGLYCERIN 0.4 MG/TAB SL PRN (11:46)
[2022-02-20] MEDS ORDERED: ALPRAZOLAM 0.25 MG TABLET PO PRN (11:46)
[2022-02-20] MEDS ORDERED: MORPHINE 2 MG/ML SYR IV PRN (12:20)
[2022-02-20 12:23] VITALS: BMI 29.8
[2022-02-20] MEDS: ENOXAPARIN 40 MG/0.4 ML SQ SCH (12:52)
[2022-02-20 12:56] LABS: Troponin High Sensitivity 7.9 pg/mL (<58.9)
[2022-02-20] MEDS ORDERED: INFLUENZA VACCINE (for 6+ mo) 0.5 ML DOSE IMVAC ONE (16:00)
[2022-02-20] MEDS ORDERED: PNEUMOCOCCAL VACCINE 0.5 ML IMVAC ONE (16:00)
[2022-02-21 03:00] VITALS: O2SAT 97
[2022-02-21 05:49] LABS: Absolute Lymphocytes (CBC) 1.4 K/uL (0.7-4.9); Hematocrit 38.9 % (36.0-45.0); Lymphocytes % 28.1 % (15.3-44.8); MCV 95.2 fL (80-100); MPV 9.6 fL (7.6-11.3); RBC Red Blood Cell Count 4.09 M/uL (3.86-4.86)
[2022-02-21 05:58] LABS: Potassium 4.7 mmol/L (3.5-5.1)
[2022-02-21] MEDS ORDERED: REGADENOSON 0.4 MG/5 ML SYR IV ONE (07:48)
[2022-02-21] MEDS: ENOXAPARIN 40 MG/0.4 ML SQ SCH (08:02)
[2022-02-21] MEDS ORDERED: ASPIRIN EC 81 MG TAB PO SCH (09:00)
--- NOTE | 2022-02-21 11:23 | RAD REPORT ---
EXAM DESCRIPTION: NM - Rest Stress Cardiac Imaging - 02/21/2022 10:58 am CLINICAL HISTORY: Chest pain Chest pain. COMPARISON: Rest Stress Cardiac Imaging dated 01/03/2017 TECHNIQUE: The patient was administered approximately 10mCi of Tc 99m Sestamibi prior to resting SPE CT imaging of the heart. The patient was then administered approximately 30 mCi of Tc 99m Sestamibi f ollowing exercise or pharmacologic stress. Multiplanar SPECT images were reviewed. FINDINGS: No stress induced ischemic defect is seen to suggest stress induced ischemia. No fixed def ect is seen to suggest hibernating myocardium or scarred myocardium. The end diastolic volume is 49 ml, the end systolic volume is 7 ml, and the ejection fraction is 86 % . IMPRESSION: No stress induced ischemia.
[2022-02-21 12:06] VITALS: BP 140/74; TEMP 98.6
--- NOTE | 2022-02-21 13:09 | P.DS ---
Admission Date: 02/20/22 Discharge Date: 02/21/22 Disposition: ROUTINE DISCHARGE Discharge Condition: FAIR Reason for Admission: Chest tightness - Problems (1) Chest tightness Current Visit: Yes Status: Acute (2) Right bundle branch block (RBBB) on electrocardiogram (ECG) Onset Date: 12/10/15 Current Visit: No Status: Acute (3) Hyperlipidemia Onset Date: 12/10/15 Current Visit: No Status: Chronic Qualifiers: (4) Hypertension Onset Date: 12/10/15 Current Visit: No Status: Chronic (5) Anxiety disorder Current Visit: Yes Status: Acute Brief History of Present Illness: 66-year-old man with a history of hypertension hyperlipidemia presented to the emergency department with a complaint of chest tightness and tingling sensation in the left which has been present since last night. Patient states that his symptoms were preceded by bouts of anxiety attacks. She states that she has a stressful job. She denies shortness of breath or coughing or abdominal pain. Initial troponin in the ED is negative. EKG demonstrates sinus rhythm with right bundle branch block and nondiagnostic for ischemia. D-dimer was elevated. CTA thorax done negative for pulmonary embolism or acute infiltrate. Her last stress test and echocardiogram were in 2017 and they were unremarkable. Patient placed on observation for ACS rule out. Hospital Course: Patient placed under observation on the medical floor. Patient's troponin was negative. She was asymptomatic. She reported recent anxiety attack. I suspect patient has some form of reactive airway disease which is contributing to her symptoms. Note that she takes Singulair at home. She is also on multiple antianxiety medications. Nuclear stress test done did not show any stress- induced ischemia. ACS ruled out and patient is deemed stable for discharge. Vital Signs/Physical Exam: Temp Pulse Resp BP Pulse Ox 98.6 F 75 18 140/74 97 02/21/22 12:00 02/21/22 12:00 02/21/22 12:00 02/21/22 12:00 02/21/22 12:00 General: Alert, In no apparent distress, Oriented x3 HEENT: Mucous membr. moist/pink Neck: Supple, JVD not distended Respiratory: Clear to auscultation bilaterally, Normal air movement Cardiovascular: No edema, Regular rate/rhythm, Normal S1 S2 Gastrointestinal: Soft and benign, Non-distended Musculoskeletal: No swelling Integumentary: No rashes Neurological: Normal strength at 5/5 x4 extr, Cranial nerves 3-12 intact Laboratory Data at Discharge: WBC 5.10 K/uL (4.3-10.9) 02/21/22 05:20 Hgb 13.4 g/dL (12.0-15.0) 02/21/22 05:20 Hct 38.9 % (36.0-45.0) 02/21/22 05:20 Plt Count 120 K/uL (152-406) L 02/21/22 05:20 Sodium 140 mmol/L (136-145) 02/21/22 05:20 Potassium 4.7 mmol/L (3.5-5.1) D 02/21/22 05:20 BUN 21 mg/dL (7-18) H 02/21/22 05:20 Creatinine 0.79 mg/dL (0.55-1.3) 02/21/22 05:20 Glucose 114 mg/dL (74-106) H 02/21/22 05:20 Total Bilirubin 0.7 mg/dL (0.2-1.0) 02/20/22 07:19 AST 24 U/L (15-37) 02/20/22 07:19 ALT 38 U/L (12-78) 02/20/22 07:19 Alkaline Phosphatase 102 U/L (45-117) 02/20/22 07:19 Triglycerides 129 mg/dL (<150) 02/20/22 12:30 Cholesterol 207 mg/dL (<200) H 02/20/22 12:30 HDL Cholesterol 69 mg/dL (40-60) H 02/20/22 12:30 Cholesterol/HDL Ratio 3.00 02/20/22 12:30 Home Medications: Losartan Potassium 100 mg PO DAILY 12/09/15 Montelukast Sodium [Singulair] 10 mg PO DAILY 12/09/15 Pravastatin [Pravachol*] 40 mg PO BEDTIME 12/09/15 Amlodipine [Norvasc*] 5 mg PO DAILY #30 tab 12/10/15 Citalopram Hydrobromide [Citalopram HBr] 10 mg PO DAILY 01/02/17 Buspirone HCl 7.5 mg PO BID 02/20/22 Cholestyramine (with Sugar) [Cholestyramine Packet] 2 gm PO DAILY 02/20/22 Pantoprazole [Protonix Tab*] 40 mg PO DAILY 02/20/22 Diet: AHA Activity: Ad carolyn Followup: Raisa Chavarria NP [Primary Care Provider] - 1-2 Weeks
--- NOTE | 2022-02-21 18:40 | EKG ---
Test Date: 2022-02-20 Test Time: 07:05:03 Pulp Bleacher: SAVAGE MEASUREMENT RESULTS: Intervals: Rate: 71 KS: 162 QRSD: 120 QT: 420 QTc: 456 [place]: P: 46 KS: 162 QRS: -50 T: 31 INTERPRETIVE STATEMENTS: Normal sinus rhythm Right bundle branch block Left anterior fascicular block Bifascicular block Possible Lateral infarct, age undetermined Abnormal ECG Compared to ECG 01/02/2017 17:26:23 Left anterior fascicular block now present Bifascicular block now present Myocardial infarct finding now present Left-axis deviation no longer present Left ventricular hypertrophy no longer present Electronically Signed On 02-21-22 18:37:49 CDT by Sebastian Ordonez
--- NOTE | 2022-02-22 08:48 | TREADPHA ---
DX: CHEST PAIN Date of Study: 02/21/2022 Ht: 5' 6 " Wt: 185 lb 0 oz Consulting Physician: WIL MEDICATIONS: ASPIRIN, LOVENOX, NITROSTAT HISTORY: 66 YEAR OLD FEMALE WITH COMPLAINTS OF CHEST PAIN. HISTORY OF HYPERTENSION, HYPERLIPIDEMIA, GERD, NON SMOKER, NON DRINKER. PHYSICIAL EXAMINATION: RESTING B.P.: 141/76 RESTING H.R.: 77 RESTING EKG: NORMAL SINUS RHYTHM WITH RIGHT BUNDLE BRANCH BLOCK PROTOCOL: PHARMACOLOGIC EXERCISE TIME: 3:30 B.P. AT PEAK STRESS: 127/72 IMPRESSION: LEXISCAN INJECTED FOLLOWED BY CARDIOLITE PER PROTOCOL. SEE NUCLEAR MEDICINE REPORT. NO SUPRAVENTRICULAR TACHYCARDIA, VENTRICULAR TACHYCARDIA, PREMATURE ATRIAL COMPLEXES, PREMATURE VENTRICULAR COMPLEXES. PATIENT REPORTS NO CHEST PAIN. NO EKG CHANGES WITH LEXISCAN.
== END 2022-02-21 14:32 | disposition home or self-care (01) ==
LOC: ER 06:44 → ERHOLD 11:08 → 4TH 11:47
PROVIDERS: ADMIT Internal Medicine; ATTEND Internal Medicine
DX: R07.89 Other chest pain (principal); I45.10 Unspecified right bundle-branch block; I10 Essential (primary) hypertension; E78.5 Hyperlipidemia, unspecified; Z82.3 Family history of stroke; Z82.49 Family history of ischemic heart disease and other diseases of the circulatory system; F41.9 Anxiety disorder, unspecified; Z20.822 Contact with and (suspected) exposure to COVID-19; Z23 Encounter for immunization
CPT/HCPCS: 93005; 93017; 85025 ×2; 80048 ×2; 36415; 80061; 85379; 80076; 84484 ×3; 83880; 71275; 71045; 90471 ×2; 90732; 78452; 99285; 87811; Q9967; Q2035; J1650 ×2; J2785; A9500; G0378 ×3

== ENCOUNTER 2023-10-14 08:27 | Emergency (ER) | payer OTHER ==
--- OUTSIDE RECORDS SUMMARY | 2023-10-14 08:32 | XMS REPORT | Continuity of Care Document ---
Author Name Unknown Address [address] [facility] [place] [address] [facility] Address [address] 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 Phone Raisa Chavarria Attending Clinician Unavailable Ha Hong Attending Clinician Unavailable Nicole Gonsales Attending Clinician Unavailable Payers Payer Name Policy Type Policy Number Effective Date Expirati on Date Source [facility] C1 [id number] 2019 00:00:00 [place] [address] [id number] 2019 00:00:00 [facility] C1 [id number] 2019 00:00:00 [facility] C1 [id number] 2019 00:00:00 [facility] C1 [id number] 2019 00:00:00 [facility] C1 [id number] 2019 00:00:00 [place] [address] [id number] 2019 00:00:00 [facility] Problems Condition Name Condition Details Condition Category Status Onset Date Resolution Date Last Treatment Date Treating Clinician Comments Source [id number] Abnormal mammogram Problem [facility] [id number] 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 Problem [facility] [id number] Post COVID-19 condition, unspecifie d Problem [facility] [id number] Family history of heart disease Problem [facility] [id number] Lower extremity edema Problem [facility] [id number] Other chronic pain Problem [facility] [id number] Pain in right knee Problem [facility] [id number] Depression , unspecifie d depression type Problem [facility] [id number] Attention deficit disorder, unspecifie d hyperactiv ity presence Problem [facility] [id number] Fatty liver Problem [facility] Sinus problem Sinus problem Problem [facility] Memory deficit Memory deficit Problem [facility] [id number] Seasonal allergies Problem [facility] Essential hypertensi on Benign essential HTN Problem [facility] Hyperglyce leslie Hyperglyce leslie Problem [facility] [id number] Anxiety Problem [facility] Thrombocyt openia Thrombocyt openia Problem [facility] [id number] Chronic constipati on Problem [facility] Hyperlipid aemia Hyperlipem ia Problem [facility] [id number] Chronic diarrhea Problem [facility] Leukopenia Leukopenia Problem [facility] Left shoulder pain Left shoulder pain Problem [facility] [id number] August's esophageal ulceration Problem [facility] Social History Social Habit Start Date Stop Date Quantity Comments Source History of Tobacco Use [facility] Sex Assigned At [facility] Smoking Status Start Date Stop Date Source Never Smoker [facility] Medications Ordered Medication Name Filled Medication Name Start Date Stop Date Current Medication? Ordering Clinician Indication Dosage Frequency Signature (SIG) Comments Components Source Methocarbam ol 500 MG Methocarbam ol 500 MG 2022-05 0-12 00:00: 00 No 1{table t} TID Methocarba mol 500 MG predniSONE 10 MG predniSONE 10 MG 2022-05 0-12 00:00: 00 No 1{table t} QD predniSONE 10 MG Ketorolac Tromethamin e Ketorolac Tromethamin e 2022-05 0-12 00:00: 00 No 60mg [facility] Methocarbam ol 500 MG Methocarbam ol 500 MG 2022-05 0-12 00:00: 00 No 1{table t} TID Methocarba mol 500 MG predniSONE 10 MG predniSONE 10 MG 2022-05 0-12 00:00: 00 No 1{table t} QD predniSONE 10 MG Ketorolac Tromethamin e Ketorolac Tromethamin e 2022-05 012 00:00: 00 No 60mg [facility] Methocarbam ol 500 MG Methocarbam ol 500 MG 2022-05 012 00:00: 00 No 1{table t} TID Methocarba mol 500 MG predniSONE 10 MG predniSONE 10 MG 2022-05 0-12 00:00: 00 No 1{table t} QD predniSONE 10 MG Ketorolac Tromethamin e Ketorolac Tromethamin e 2022-05 0-12 00:00: 00 No 60mg [facility] Methocarbam ol 500 MG Methocarbam ol 500 MG 2022-05 012 00:00: 00 No 1{table t} TID Methocarba mol 500 MG predniSONE 10 MG predniSONE 10 MG 2022-05 0-12 00:00: 00 No 1{table t} QD predniSONE 10 MG Ketorolac Tromethamin e Ketorolac Tromethamin e 2022-05 012 00:00: 00 No 60mg [facility] Methocarbam ol 500 MG Methocarbam ol 500 MG 2022-05 0-12 00:00: 00 No 1{table t} TID Methocarba mol 500 MG predniSONE 10 MG predniSONE 10 MG 2022-05 0-12 00:00: 00 No 1{table t} QD predniSONE 10 MG Ketorolac Tromethamin e Ketorolac Tromethamin e 2022-05 0-12 00:00: 00 No 60mg [facility] Ketorolac Tromethamin e Ketorolac Tromethamin e 2022-05 0-12 00:00: 00 No 60mg [facility] Ketorolac Tromethamin e Ketorolac Tromethamin e 2022-05 0-12 00:00: 00 No 60mg [facility] Ketorolac Tromethamin e Ketorolac Tromethamin e 2022-05 0-12 00:00: 00 No 60mg [facility] Ketorolac Tromethamin e Ketorolac Tromethamin e 2022-05 0-12 00:00: 00 No 60mg [facility] Ketorolac Tromethamin e Ketorolac Tromethamin e 2022-05 0-12 00:00: 00 No 60mg [facility] Ketorolac Tromethamin e Ketorolac Tromethamin e 2022-05 0-12 00:00: 00 No 60mg [facility] Ketorolac Tromethamin e Ketorolac Tromethamin e 2022-05 0-12 00:00: 00 No 60mg [facility] BusPIRone HCl BusPIRone HCl 2019-0 7-14 00:00: 00 Yes Nicole Millender 1 tablet as needed for anxiety [facility] Pravastatin Sodium Pravastatin Sodium Yes Nicole Millender 1 tablet in evening [facility] Amlodipine Besylate Amlodipine Besylate Yes Nicole Millender 1 tablet [facility] Meclizine HCl Meclizine HCl Yes Nicole Millender 1 tablet as needed [facility] Montelukast Sodium Montelukast Sodium Yes Nicole Millender 1 tablet in the evening [facility] Singulair Singulair Yes Nicole Millender 1 tablet in the evening [facility] Losartan Potassium Losartan Potassium Yes Nicole Millender 1 tablet [facility] Pravastatin Sodium 40 MG Pravastatin Sodium 40 MG No QD Pravastati n Sodium 40 MG Citalopram Hydrobromid e 20 MG Citalopram Hydrobromid e 20 MG No 1{table t} QD Citalopram Hydrobromi de 20 MG Singulair 10 MG Singulair 10 MG No 1{table t_in_ e_eveni ng} QD Singulair 10 MG Losartan Potassium 100 MG Losartan Potassium 100 MG No 1{table t} QD Losartan Potassium 100 MG amLODIPine Besylate 5 MG amLODIPine Besylate 5 MG No 1{table t} QD amLODIPine Besylate 5 MG busPIRone HCl 7.5 busPIRone HCl 7.5 No BID busPIRone HCl 7.5 Pantoprazol e Sodium 40 MG Pantoprazol e Sodium 40 MG No 1{table t} QD Pantoprazo le Sodium 40 MG Meclizine HCl 25 MG Meclizine HCl 25 MG No 1{table t_as_ne eded} Meclizine HCl 25 MG Cholestyram ine 4 GM Cholestyram ine 4 GM No Cholestyra mine 4 GM Vitamin D 50 MCG (1999) Vitamin D 50 MCG (1999) No 1{capsu le} QD Vitamin D 50 MCG (1999) Singulair 10 MG Singulair 10 MG No 1{table t_in_ e_eveni ng} QD Singulair 10 MG Vitamin D 50 MCG (1999) Vitamin D 50 MCG (1999) No 1{capsu le} QD Vitamin D 50 MCG (1999) amLODIPine Besylate 5 MG amLODIPine Besylate 5 MG No 1{table t} QD amLODIPine Besylate 5 MG Cholestyram ine 4 GM Cholestyram ine 4 GM No Cholestyra mine 4 GM Pantoprazol e Sodium 40 MG Pantoprazol e Sodium 40 MG No Pantoprazo le Sodium 40 MG busPIRone HCl 7.5 busPIRone HCl 7.5 No BID busPIRone HCl 7.5 Losartan Potassium 100 mg Losartan Potassium 100 mg No 1{table t} QD Losartan Potassium 100 mg Pravastatin Sodium 40 MG Pravastatin Sodium 40 MG No QD Pravastati n Sodium 40 MG Meclizine HCl 25 MG Meclizine HCl 25 MG No 1{table t_as_ne eded} Meclizine HCl 25 MG Citalopram Hydrobromid e 20 MG Citalopram Hydrobromid e 20 MG No 1{table t} QD Citalopram Hydrobromi de 20 MG Montelukast Sodium 10 MG Montelukast Sodium 10 MG No Montelukas t Sodium 10 MG Cholestyram ine 4 GM Cholestyram ine 4 GM No Cholestyra mine 4 GM Pantoprazol e Sodium 40 MG Pantoprazol e Sodium 40 MG No Pantoprazo le Sodium 40 MG Pravastatin Sodium 40 MG Pravastatin Sodium 40 MG No QD Pravastati n Sodium 40 MG amLODIPine Besylate 5 MG amLODIPine Besylate 5 MG No amLODIPine Besylate 5 MG Vitamin D 50 MCG (1999) Vitamin D 50 MCG (1999) No 1{capsu le} QD Vitamin D 50 MCG (1999) Montelukast Sodium 10 MG Montelukast Sodium 10 MG No Montelukas t Sodium 10 MG Citalopram Hydrobromid e 20 MG Citalopram Hydrobromid e 20 MG No 1{table t} QD Citalopram Hydrobromi de 20 MG Meclizine HCl 25 MG Meclizine HCl 25 MG No 1{table t_as_ne eded} Meclizine HCl 25 MG busPIRone HCl 7.5 busPIRone HCl 7.5 No BID busPIRone HCl 7.5 Losartan Potassium 100 MG Losartan Potassium 100 MG No Losartan Potassium 100 MG Citalopram Hydrobromid e 10 MG Citalopram Hydrobromid e 10 MG No 1{table t} QD Citalopram Hydrobromi de 10 MG Pravastatin Sodium 40 MG Pravastatin Sodium 40 MG No QD Pravastati n Sodium 40 MG amLODIPine Besylate 5 MG amLODIPine Besylate 5 MG No amLODIPine Besylate 5 MG Meclizine HCl 25 MG Meclizine HCl 25 MG No 1{table t_as_ne eded} Meclizine HCl 25 MG Cholestyram ine 4 GM Cholestyram ine 4 GM No Cholestyra mine 4 GM Losartan Potassium 100 MG Losartan Potassium 100 MG No Losartan Potassium 100 MG busPIRone HCl 7.5 busPIRone HCl 7.5 No BID busPIRone HCl 7.5 Montelukast Sodium 10 MG Montelukast Sodium 10 MG No QD Montelukas t Sodium 10 MG Pantoprazol e Sodium 40 MG Pantoprazol e Sodium 40 MG No Pantoprazo le Sodium 40 MG Vitamin D 50 MCG (1999) Vitamin D 50 MCG (1999) No 1{capsu le} QD Vitamin D 50 MCG (1999) busPIRone HCl 7.5 busPIRone HCl 7.5 No BID busPIRone HCl 7.5 Pravastatin Sodium 40 MG Pravastatin Sodium 40 MG No QD Pravastati n Sodium 40 MG amLODIPine Besylate 5 MG amLODIPine Besylate 5 MG No amLODIPine Besylate 5 MG Meclizine HCl 25 MG Meclizine HCl 25 MG No 1{table t_as_ne eded} Meclizine HCl 25 MG Cholestyram ine 4 GM Cholestyram ine 4 GM No Cholestyra mine 4 GM Montelukast Sodium 10 MG Montelukast Sodium 10 MG No Montelukas t Sodium 10 MG Losartan Potassium 100 MG Losartan Potassium 100 MG No Losartan Potassium 100 MG Citalopram Hydrobromid e 10 MG Citalopram Hydrobromid e 10 MG No 1{table t} QD Citalopram Hydrobromi de 10 MG Pantoprazol e Sodium 40 MG Pantoprazol e Sodium 40 MG No Pantoprazo le Sodium 40 MG Vitamin D 50 MCG (1999) Vitamin D 50 MCG (1999) No 1{capsu le} QD Vitamin D 50 MCG (1999) busPIRone HCl 7.5 busPIRone HCl 7.5 No BID busPIRone HCl 7.5 Pravastatin Sodium 40 MG Pravastatin Sodium 40 MG No Pravastati n Sodium 40 MG amLODIPine Besylate 5 MG amLODIPine Besylate 5 MG No amLODIPine Besylate 5 MG Meclizine HCl 25 MG Meclizine HCl 25 MG No 1{table t_as_ne eded} Meclizine HCl 25 MG Cholestyram ine 4 GM Cholestyram ine 4 GM No Cholestyra mine 4 GM Montelukast Sodium 10 MG Montelukast Sodium 10 MG No Montelukas t Sodium 10 MG Losartan Potassium 100 MG Losartan Potassium 100 MG No Losartan Potassium 100 MG Citalopram Hydrobromid e 10 MG Citalopram Hydrobromid e 10 MG No 1{table t} QD Citalopram Hydrobromi de 10 MG Pantoprazol e Sodium 40 MG Pantoprazol e Sodium 40 MG No Pantoprazo le Sodium 40 MG Vitamin D 50 MCG (1999) Vitamin D 50 MCG (1999) No 1{capsu le} QD Vitamin D 50 MCG (1999) busPIRone HCl 7.5 busPIRone HCl 7.5 No BID busPIRone HCl 7.5 Pravastatin Sodium 40 MG Pravastatin Sodium 40 MG No Pravastati n Sodium 40 MG amLODIPine Besylate 5 MG amLODIPine Besylate 5 MG No amLODIPine Besylate 5 MG Meclizine HCl 25 MG Meclizine HCl 25 MG No 1{table t_as_ne eded} Meclizine HCl 25 MG Cholestyram ine 4 GM Cholestyram ine 4 GM No Cholestyra mine 4 GM Montelukast Sodium 10 MG Montelukast Sodium 10 MG No Montelukas t Sodium 10 MG Losartan Potassium 100 MG Losartan Potassium 100 MG No Losartan Potassium 100 MG Citalopram Hydrobromid e 10 MG Citalopram Hydrobromid e 10 MG No 1{table t} QD Citalopram Hydrobromi de 10 MG Pantoprazol e Sodium 40 MG Pantoprazol e Sodium 40 MG No Pantoprazo le Sodium 40 MG Vitamin D 50 MCG (1999) Vitamin D 50 MCG (1999) No 1{capsu le} QD Vitamin D 50 MCG (1999) Pravastatin Sodium 40 MG Pravastatin Sodium 40 MG No Pravastati n Sodium 40 MG Meclizine HCl 25 MG Meclizine HCl 25 MG No 1{table t_as_ne eded} Meclizine HCl 25 MG Montelukast Sodium 10 MG Montelukast Sodium 10 MG No Montelukas t Sodium 10 MG Cholestyram ine 4 GM Cholestyram ine 4 GM No Cholestyra mine 4 GM Citalopram Hydrobromid e 10 MG Citalopram Hydrobromid e 10 MG No 1{table t} QD Citalopram Hydrobromi de 10 MG amLODIPine Besylate 5 MG amLODIPine Besylate 5 MG No amLODIPine Besylate 5 MG Vitamin D 50 MCG (1999) Vitamin D 50 MCG (1999) No 1{capsu le} QD Vitamin D 50 MCG (1999) Losartan Potassium 100 MG Losartan Potassium 100 MG No Losartan Potassium 100 MG busPIRone HCl 7.5 busPIRone HCl 7.5 No BID busPIRone HCl 7.5 Pantoprazol e Sodium 40 MG Pantoprazol e Sodium 40 MG No Pantoprazo le Sodium 40 MG Pantoprazol e Sodium 40 MG Pantoprazol e Sodium 40 MG No Pantoprazo le Sodium 40 MG Losartan Potassium 100 MG Losartan Potassium 100 MG No Losartan Potassium 100 MG Meclizine HCl 25 MG Meclizine HCl 25 MG No 1{table t_as_ne eded} Meclizine HCl 25 MG Cholestyram ine 4 GM Cholestyram ine 4 GM No Cholestyra mine 4 GM Vitamin D 50 MCG (1999) Vitamin D 50 MCG (1999) No 1{capsu le} QD Vitamin D 50 MCG (1999) Pravastatin Sodium 40 MG Pravastatin Sodium 40 MG No Pravastati n Sodium 40 MG Montelukast Sodium 10 MG Montelukast Sodium 10 MG No Montelukas t Sodium 10 MG amLODIPine Besylate 5 MG amLODIPine Besylate 5 MG No amLODIPine Besylate 5 MG busPIRone HCl 10 MG busPIRone HCl 10 MG No 1{table t} QD busPIRone HCl 10 MG Citalopram Hydrobromid e 20 MG Citalopram Hydrobromid e 20 MG No 1{table t} QD Citalopram Hydrobromi de 20 MG Pantoprazol e Sodium 40 MG Pantoprazol e Sodium 40 MG No Pantoprazo le Sodium 40 MG Losartan Potassium 100 MG Losartan Potassium 100 MG No Losartan Potassium 100 MG Meclizine HCl 25 MG Meclizine HCl 25 MG No 1{table t_as_ne eded} Meclizine HCl 25 MG Cholestyram ine 4 GM Cholestyram ine 4 GM No Cholestyra mine 4 GM Vitamin D 50 MCG (1999) Vitamin D 50 MCG (1999) No 1{capsu le} QD Vitamin D 50 MCG (1999) Pravastatin Sodium 40 MG Pravastatin Sodium 40 MG No Pravastati n Sodium 40 MG Montelukast Sodium 10 MG Montelukast Sodium 10 MG No Montelukas t Sodium 10 MG amLODIPine Besylate 5 MG amLODIPine Besylate 5 MG No amLODIPine Besylate 5 MG busPIRone HCl 10 MG busPIRone HCl 10 MG No BID busPIRone HCl 10 MG Citalopram Hydrobromid e 20 MG Citalopram Hydrobromid e 20 MG No 1{table t} QD Citalopram Hydrobromi de 20 MG Pantoprazol e Sodium 40 MG Pantoprazol e Sodium 40 MG No Pantoprazo le Sodium 40 MG Losartan Potassium 100 MG Losartan Potassium 100 MG No Losartan Potassium 100 MG Meclizine HCl 25 MG Meclizine HCl 25 MG No 1{table t_as_ne eded} Meclizine HCl 25 MG Cholestyram ine 4 GM Cholestyram ine 4 GM No Cholestyra mine 4 GM Vitamin D 50 MCG (1999) Vitamin D 50 MCG (1999) No 1{capsu le} QD Vitamin D 50 MCG (1999) Pravastatin Sodium 40 MG Pravastatin Sodium 40 MG No Pravastati n Sodium 40 MG Montelukast Sodium 10 MG Montelukast Sodium 10 MG No Montelukas t Sodium 10 MG amLODIPine Besylate 5 MG amLODIPine Besylate 5 MG No amLODIPine Besylate 5 MG busPIRone HCl 10 MG busPIRone HCl 10 MG No BID busPIRone HCl 10 MG Citalopram Hydrobromid e 20 MG Citalopram Hydrobromid e 20 MG No 1{table t} QD Citalopram Hydrobromi de 20 MG Pantoprazol e Sodium 40 MG Pantoprazol e Sodium 40 MG No Pantoprazo le Sodium 40 MG Losartan Potassium 100 MG Losartan Potassium 100 MG No Losartan Potassium 100 MG Meclizine HCl 25 MG Meclizine HCl 25 MG No 1{table t_as_ne eded} Meclizine HCl 25 MG Vitamin D 50 MCG (1999) Vitamin D 50 MCG (1999) No 1{capsu le} QD Vitamin D 50 MCG (1999) amLODIPine Besylate 5 MG amLODIPine Besylate 5 MG No amLODIPine Besylate 5 MG Citalopram Hydrobromid e 20 MG Citalopram Hydrobromid e 20 MG No 1{table t} QD Citalopram Hydrobromi de 20 MG Montelukast Sodium 10 MG Montelukast Sodium 10 MG No Montelukas t Sodium 10 MG Pravastatin Sodium 40 MG Pravastatin Sodium 40 MG No Pravastati n Sodium 40 MG busPIRone HCl 10 MG busPIRone HCl 10 MG No BID busPIRone HCl 10 MG Cholestyram ine 4 GM Cholestyram ine 4 GM No Cholestyra mine 4 GM Montelukast Sodium 10 MG Montelukast Sodium 10 MG No Montelukas t Sodium 10 MG busPIRone HCl 10 MG busPIRone HCl 10 MG No 1{table t} QD busPIRone HCl 10 MG Culturelle - Culturelle - No Culturelle - Pantoprazol e Sodium 40 MG Pantoprazol e Sodium 40 MG No Pantoprazo le Sodium 40 MG Citalopram Hydrobromid e 20 MG Citalopram Hydrobromid e 20 MG No 1{table t} QD Citalopram Hydrobromi de 20 MG amLODIPine Besylate 5 MG amLODIPine Besylate 5 MG No amLODIPine Besylate 5 MG hydroCHLORO thiazide 25 MG hydroCHLORO thiazide 25 MG No hydroCHLOR Othiazide 25 MG Pravastatin Sodium 40 MG Pravastatin Sodium 40 MG No Pravastati n Sodium 40 MG Losartan Potassium 100 MG Losartan Potassium 100 MG No Losartan Potassium 100 MG Montelukast Sodium 10 MG Montelukast Sodium 10 MG No Montelukas t Sodium 10 MG busPIRone HCl 10 MG busPIRone HCl 10 MG No 1{table t} QD busPIRone HCl 10 MG Culturelle - Culturelle - No Culturelle - Pantoprazol e Sodium 40 MG Pantoprazol e Sodium 40 MG No Pantoprazo le Sodium 40 MG Citalopram Hydrobromid e 20 MG Citalopram Hydrobromid e 20 MG No 1{table t} QD Citalopram Hydrobromi de 20 MG amLODIPine Besylate 5 MG amLODIPine Besylate 5 MG No amLODIPine Besylate 5 MG hydroCHLORO thiazide 25 MG hydroCHLORO thiazide 25 MG No hydroCHLOR Othiazide 25 MG Pravastatin Sodium 40 MG Pravastatin Sodium 40 MG No Pravastati n Sodium 40 MG Losartan Potassium 100 MG Losartan Potassium 100 MG No Losartan Potassium 100 MG Montelukast Sodium 10 MG Montelukast Sodium 10 MG No Montelukas t Sodium 10 MG busPIRone HCl 10 MG busPIRone HCl 10 MG No 1{table t} QD busPIRone HCl 10 MG Culturelle - Culturelle - No Culturelle - Losartan Potassium 100 MG Losartan Potassium 100 MG No Losartan Potassium 100 MG Pravastatin Sodium 40 MG Pravastatin Sodium 40 MG No Pravastati n Sodium 40 MG Pantoprazol e Sodium 40 MG Pantoprazol e Sodium 40 MG No Pantoprazo le Sodium 40 MG hydroCHLORO thiazide 25 MG hydroCHLORO thiazide 25 MG No hydroCHLOR Othiazide 25 MG amLODIPine Besylate 5 MG amLODIPine Besylate 5 MG No amLODIPine Besylate 5 MG Citalopram Hydrobromid e 20 MG Citalopram Hydrobromid e 20 MG No 1{table t} QD Citalopram Hydrobromi de 20 MG Montelukast Sodium 10 MG Montelukast Sodium 10 MG No Montelukas t Sodium 10 MG busPIRone HCl 10 MG busPIRone HCl 10 MG No 1{table t} QD busPIRone HCl 10 MG Culturelle - Culturelle - No Culturelle - Losartan Potassium 100 MG Losartan Potassium 100 MG No Losartan Potassium 100 MG Pravastatin Sodium 40 MG Pravastatin Sodium 40 MG No Pravastati n Sodium 40 MG Pantoprazol e Sodium 40 MG Pantoprazol e Sodium 40 MG No Pantoprazo le Sodium 40 MG hydroCHLORO thiazide 25 MG hydroCHLORO thiazide 25 MG No hydroCHLOR Othiazide 25 MG amLODIPine Besylate 5 MG amLODIPine Besylate 5 MG No amLODIPine Besylate 5 MG Citalopram Hydrobromid e 20 MG Citalopram Hydrobromid e 20 MG No 1{table t} QD Citalopram Hydrobromi de 20 MG Montelukast Sodium 10 MG Montelukast Sodium 10 MG No Montelukas t Sodium 10 MG busPIRone HCl 10 MG busPIRone HCl 10 MG No 1{table t} QD busPIRone HCl 10 MG Culturelle - Culturelle - No Culturelle - Citalopram Hydrobromid e 20 MG Citalopram Hydrobromid e 20 MG No 1{table t} QD Citalopram Hydrobromi de 20 MG Losartan Potassium 100 MG Losartan Potassium 100 MG No Losartan Potassium 100 MG Pantoprazol e Sodium 40 MG Pantoprazol e Sodium 40 MG No Pantoprazo le Sodium 40 MG hydroCHLORO thiazide 25 MG hydroCHLORO thiazide 25 MG No hydroCHLOR Othiazide 25 MG amLODIPine Besylate 5 MG amLODIPine Besylate 5 MG No amLODIPine Besylate 5 MG Pravastatin Sodium 40 MG Pravastatin Sodium 40 MG No Pravastati n Sodium 40 MG Pravastatin Sodium 40 MG Pravastatin Sodium 40 MG No Pravastati n Sodium 40 MG Pantoprazol e Sodium 40 MG Pantoprazol e Sodium 40 MG No 1{table t} QD Pantoprazo le Sodium 40 MG Citalopram Hydrobromid e 20 MG Citalopram Hydrobromid e 20 MG No 1{table t} QD Citalopram Hydrobromi de 20 MG amLODIPine Besylate 5 MG amLODIPine Besylate 5 MG No amLODIPine Besylate 5 MG Culturelle - Culturelle - No Culturelle - Montelukast Sodium 10 MG Montelukast Sodium 10 MG No Montelukas t Sodium 10 MG busPIRone HCl 10 MG busPIRone HCl 10 MG No 1{table t} QD busPIRone HCl 10 MG Losartan Potassium 100 MG Losartan Potassium 100 MG No Losartan Potassium 100 MG Pravastatin Sodium 40 MG Pravastatin Sodium 40 MG No Pravastati n Sodium 40 MG Pantoprazol e Sodium 40 MG Pantoprazol e Sodium 40 MG No 1{table t} QD Pantoprazo le Sodium 40 MG Citalopram Hydrobromid e 20 MG Citalopram Hydrobromid e 20 MG No 1{table t} QD Citalopram Hydrobromi de 20 MG amLODIPine Besylate 5 MG amLODIPine Besylate 5 MG No amLODIPine Besylate 5 MG Culturelle - Culturelle - No Culturelle - Montelukast Sodium 10 MG Montelukast Sodium 10 MG No Montelukas t Sodium 10 MG busPIRone HCl 10 MG busPIRone HCl 10 MG No 1{table t} QD busPIRone HCl 10 MG Losartan Potassium 100 MG Losartan Potassium 100 MG No Losartan Potassium 100 MG Pravastatin Sodium 40 MG Pravastatin Sodium 40 MG No Pravastati n Sodium 40 MG Pantoprazol e Sodium 40 MG Pantoprazol e Sodium 40 MG No 1{table t} QD Pantoprazo le Sodium 40 MG Citalopram Hydrobromid e 20 MG Citalopram Hydrobromid e 20 MG No 1{table t} QD Citalopram Hydrobromi de 20 MG amLODIPine Besylate 5 MG amLODIPine Besylate 5 MG No amLODIPine Besylate 5 MG Culturelle - Culturelle - No Culturelle - Montelukast Sodium 10 MG Montelukast Sodium 10 MG No Montelukas t Sodium 10 MG busPIRone HCl 10 MG busPIRone HCl 10 MG No 1{table t} QD busPIRone HCl 10 MG Losartan Potassium 100 MG Losartan Potassium 100 MG No Losartan Potassium 100 MG B-12 1000 MCG B-12 1000 MCG No 1{table t_under _the_to ngue_an d_allow _to_dis solve} QD B-12 1000 MCG Magnesium 250 MG Magnesium 250 MG No 1{table t_with_ a_meal} QD Magnesium 250 MG Pravastatin Sodium 40 MG Pravastatin Sodium 40 MG No Pravastati n Sodium 40 MG amLODIPine Besylate 5 MG amLODIPine Besylate 5 MG No amLODIPine Besylate 5 MG Losartan Potassium 100 MG Losartan Potassium 100 MG No Losartan Potassium 100 MG busPIRone HCl 10 MG busPIRone HCl 10 MG No 1{table t} QD busPIRone HCl 10 MG Citalopram Hydrobromid e 20 MG Citalopram Hydrobromid e 20 MG No 1{table t} QD Citalopram Hydrobromi de 20 MG Montelukast Sodium 10 MG Montelukast Sodium 10 MG No Montelukas t Sodium 10 MG Pantoprazol e Sodium 40 MG Pantoprazol e Sodium 40 MG No 1{table t} QD Pantoprazo le Sodium 40 MG Culturelle - Culturelle - No Culturelle - Vitamin D3 50 MCG (1999) Vitamin D3 50 MCG (1999) No 1{capsu le} QD Vitamin D3 50 MCG (1999) Pravastatin Sodium 40 MG Pravastatin Sodium 40 MG No QD Pravastati n Sodium 40 MG Pravastatin Sodium 40 MG Pravastatin Sodium 40 MG No Pravastati n Sodium 40 MG amLODIPine Besylate 5 MG amLODIPine Besylate 5 MG No amLODIPine Besylate 5 MG Losartan Potassium 100 MG Losartan Potassium 100 MG No Losartan Potassium 100 MG busPIRone HCl 10 MG busPIRone HCl 10 MG No 1{table t} QD busPIRone HCl 10 MG Citalopram Hydrobromid e 20 MG Citalopram Hydrobromid e 20 MG No 1{table t} QD Citalopram Hydrobromi de 20 MG Montelukast Sodium 10 MG Montelukast Sodium 10 MG No Montelukas t Sodium 10 MG Pantoprazol e Sodium 40 MG Pantoprazol e Sodium 40 MG No 1{table t} QD Pantoprazo le Sodium 40 MG Culturelle - Culturelle - No Culturelle - Losartan Potassium 100 mg Losartan Potassium 100 mg No 1{table t} QD Losartan Potassium 100 mg Citalopram Hydrobromid e 20 MG Citalopram Hydrobromid e 20 MG No 1{table t} QD Citalopram Hydrobromi de 20 MG Culturelle - Culturelle - No Culturelle - Losartan Potassium 100 MG Losartan Potassium 100 MG No Losartan Potassium 100 MG Montelukast Sodium 10 MG Montelukast Sodium 10 MG No Montelukas t Sodium 10 MG busPIRone HCl 7.5 busPIRone HCl 7.5 No BID busPIRone HCl 7.5 Pantoprazol e Sodium 40 MG Pantoprazol e Sodium 40 MG No 1{table t} QD Pantoprazo le Sodium 40 MG Pravastatin Sodium 40 MG Pravastatin Sodium 40 MG No Pravastati n Sodium 40 MG amLODIPine Besylate 5 MG amLODIPine Besylate 5 MG No amLODIPine Besylate 5 MG busPIRone HCl 10 MG busPIRone HCl 10 MG No 1{table t} QD busPIRone HCl 10 MG Meclizine HCl 25 MG Meclizine HCl 25 MG No 1{table t_as_ne eded} Meclizine HCl 25 MG Citalopram Hydrobromid e 20 MG Citalopram Hydrobromid e 20 MG No 1{table t} QD Citalopram Hydrobromi de 20 MG Culturelle - Culturelle - No Culturelle - Losartan Potassium 100 MG Losartan Potassium 100 MG No Losartan Potassium 100 MG Montelukast Sodium 10 MG Montelukast Sodium 10 MG No Montelukas t Sodium 10 MG Pantoprazol e Sodium 40 MG Pantoprazol e Sodium 40 MG No 1{table t} QD Pantoprazo le Sodium 40 MG Pravastatin Sodium 40 MG Pravastatin Sodium 40 MG No Pravastati n Sodium 40 MG amLODIPine Besylate 5 MG amLODIPine Besylate 5 MG No amLODIPine Besylate 5 MG busPIRone HCl 10 MG busPIRone HCl 10 MG No 1{table t} QD busPIRone HCl 10 MG Citalopram Hydrobromid e 20 MG Citalopram Hydrobromid e 20 MG No 1{table t} QD Citalopram Hydrobromi de 20 MG Zinc 50 MG Zinc 50 MG No 1{ table t} QD Zinc 50 MG Vitamin C 500 MG Vitamin C 500 MG No Vitamin C 500 MG amLODIPine Besylate 5 MG amLODIPine Besylate 5 MG No 1{table t} QD amLODIPine Besylate 5 MG Singulair 10 MG Singulair 10 MG No 1{table t_in_th e_eveni ng} QD Singulair 10 MG Probiotic - Probiotic - No Pr obiotic - Immunizations Ordered Immunization Name Filled Immunization Name Date Status Comments Source Moderna COVID-19 Vaccine Moderna COVID-19 Vaccine 2021-01-02 15:06:00 Completed [facility] Moderna COVID-19 Vaccine Moderna COVID-19 Vaccine 2021-01-02 15:06:00 Completed [facility] Moderna COVID-19 Vaccine Moderna COVID-19 Vaccine 2021-01-02 15:06:00 Completed [facility] Moderna COVID-19 Vaccine Moderna COVID-19 Vaccine 2021-01-02 15:06:00 Completed [facility] Moderna COVID-19 Vaccine Moderna COVID-19 Vaccine 2021-01-02 15:06:00 Completed [facility] Moderna COVID-19 Vaccine Moderna COVID-19 Vaccine 2021-01-02 15:06:00 Completed [facility] Moderna COVID-19 Vaccine Moderna COVID-19 Vaccine 2021-01-02 15:06:00 Completed [facility] Moderna COVID-19 Vaccine Moderna COVID-19 Vaccine 2021-01-02 15:06:00 Completed [facility] Moderna COVID-19 Vaccine Moderna COVID-19 Vaccine 2021-01-02 15:06:00 Completed [facility] Moderna COVID-19 Vaccine Moderna COVID-19 Vaccine 2021-01-02 15:06:00 Completed [facility] Moderna COVID-19 Vaccine Moderna COVID-19 Vaccine 2021-01-02 15:06:00 Completed [facility] Moderna COVID-19 Vaccine Moderna COVID-19 Vaccine 2021-01-02 15:06:00 Completed [facility] Moderna COVID-19 Vaccine Moderna COVID-19 Vaccine 2020-07-11 15:08:00 Completed [facility] Moderna COVID-19 Vaccine Moderna COVID-19 Vaccine 2020-07-11 15:08:00 Completed [facility] Moderna COVID-19 Vaccine Moderna COVID-19 Vaccine 2020-07-11 15:08:00 Completed [facility] Moderna COVID-19 Vaccine Moderna COVID-19 Vaccine 2020-07-11 15:08:00 Completed [facility] Moderna COVID-19 Vaccine Moderna COVID-19 Vaccine 2020-07-11 15:08:00 Completed [facility] Moderna COVID-19 Vaccine Moderna COVID-19 Vaccine 2020-07-11 15:08:00 Completed [facility] Moderna COVID-19 Vaccine Moderna COVID-19 Vaccine 2020-07-11 15:08:00 Completed [facility] Moderna COVID-19 Vaccine Moderna COVID-19 Vaccine 2020-07-11 15:08:00 Completed [facility] Moderna COVID-19 Vaccine Moderna COVID-19 Vaccine 2020-07-11 15:08:00 Completed [facility] Moderna COVID-19 Vaccine Moderna COVID-19 Vaccine 2020-07-11 15:08:00 Completed [facility] Moderna COVID-19 Vaccine Moderna COVID-19 Vaccine 2020-07-11 15:08:00 Completed [facility] Moderna COVID-19 Vaccine Moderna COVID-19 Vaccine 2020-07-11 15:08:00 Completed [facility] Moderna COVID-19 Vaccine Moderna COVID-19 Vaccine 2020-06-05 15:11:00 Completed [facility] Moderna COVID-19 Vaccine Moderna COVID-19 Vaccine 2020-06-05 15:11:00 Completed [facility] Moderna COVID-19 Vaccine Moderna COVID-19 Vaccine 2020-06-05 15:11:00 Completed [facility] Moderna COVID-19 Vaccine Moderna COVID-19 Vaccine 2020-06-05 15:11:00 Completed [facility] Moderna COVID-19 Vaccine Moderna COVID-19 Vaccine 2020-06-05 15:11:00 Completed [facility] Moderna COVID-19 Vaccine Moderna COVID-19 Vaccine 2020-06-05 15:11:00 Completed [facility] Moderna COVID-19 Vaccine Moderna COVID-19 Vaccine 2020-06-05 15:11:00 Completed [facility] Moderna COVID-19 Vaccine Moderna COVID-19 Vaccine 2020-06-05 15:11:00 Completed [facility] Moderna COVID-19 Vaccine Moderna COVID-19 Vaccine 2020-06-05 15:11:00 Completed [facility] Moderna COVID-19 Vaccine Moderna COVID-19 Vaccine 2020-06-05 15:11:00 Completed [facility] Moderna COVID-19 Vaccine Moderna COVID-19 Vaccine 2020-06-05 15:11:00 Completed [facility] Moderna COVID-19 Vaccine Moderna COVID-19 Vaccine 2020-06-05 15:11:00 Completed [facility] Moderna COVID-19 Vaccine Moderna COVID-19 Vaccine Unknown Completed [facility] Moderna COVID-19 Vaccine Moderna COVID-19 Vaccine Unknown Completed [facility] Moderna COVID-19 Vaccine Moderna COVID-19 Vaccine Unknown Completed [facility] Moderna COVID-19 Vaccine Moderna COVID-19 Vaccine Unknown Completed [facility] Moderna COVID-19 Vaccine Moderna COVID-19 Vaccine Unknown Completed [facility] Moderna COVID-19 Vaccine Moderna COVID-19 Vaccine Unknown Completed [facility] Moderna COVID-19 Vaccine Moderna COVID-19 Vaccine Unknown Completed [facility] Moderna COVID-19 Vaccine Moderna COVID-19 Vaccine Unknown Completed [facility] Moderna COVID-19 Vaccine Moderna COVID-19 Vaccine Unknown Completed [facility] Moderna COVID-19 Vaccine Moderna COVID-19 Vaccine Unknown Completed [facility] Moderna COVID-19 Vaccine Moderna COVID-19 Vaccine Unknown Completed [facility] Moderna COVID-19 Vaccine Moderna COVID-19 Vaccine Unknown Completed [facility] Moderna COVID-19 Vaccine Moderna COVID-19 Vaccine Unknown Completed [facility] Moderna COVID-19 Vaccine Moderna COVID-19 Vaccine Unknown Completed [facility] Moderna COVID-19 Vaccine Moderna COVID-19 Vaccine Unknown Completed [facility] Moderna COVID-19 Vaccine Moderna COVID-19 Vaccine Unknown Completed [facility] Moderna COVID-19 Vaccine Moderna COVID-19 Vaccine Unknown Completed [facility] Moderna COVID-19 Vaccine Moderna COVID-19 Vaccine Unknown Completed [facility] Moderna COVID-19 Vaccine Moderna COVID-19 Vaccine Unknown Completed [facility] Moderna COVID-19 Vaccine Moderna COVID-19 Vaccine Unknown Completed [facility] Moderna COVID-19 Vaccine Moderna COVID-19 Vaccine Unknown Completed [facility] Moderna COVID-19 Vaccine Moderna COVID-19 Vaccine Unknown Completed [facility] Moderna COVID-19 Vaccine Moderna COVID-19 Vaccine Unknown Completed [facility] Moderna COVID-19 Vaccine Moderna COVID-19 Vaccine Unknown Completed [facility] Moderna COVID-19 Vaccine Moderna COVID-19 Vaccine Unknown Completed [facility] Moderna COVID-19 Vaccine Moderna COVID-19 Vaccine Unknown Completed [facility] Moderna COVID-19 Vaccine Moderna COVID-19 Vaccine Unknown Completed [facility] Moderna COVID-19 Vaccine Moderna COVID-19 Vaccine Unknown Completed [facility] Moderna COVID-19 Vaccine Moderna COVID-19 Vaccine Unknown Completed [facility] Moderna COVID-19 Vaccine Moderna COVID-19 Vaccine Unknown Completed [facility] Moderna COVID-19 Vaccine Moderna COVID-19 Vaccine Unknown Completed [facility] Moderna COVID-19 Vaccine Moderna COVID-19 Vaccine Unknown Completed [facility] Moderna COVID-19 Vaccine Moderna COVID-19 Vaccine Unknown Completed [facility] Moderna COVID-19 Vaccine Moderna COVID-19 Vaccine Unknown Completed [facility] Moderna COVID-19 Vaccine Moderna COVID-19 Vaccine Unknown Completed [facility] Moderna COVID-19 Vaccine Moderna COVID-19 Vaccine Unknown Completed [facility] Moderna COVID-19 Vaccine Moderna COVID-19 Vaccine Unknown Completed [facility] Moderna COVID-19 Vaccine Moderna COVID-19 Vaccine Unknown Completed [facility] Moderna COVID-19 Vaccine Moderna COVID-19 Vaccine Unknown Completed [facility] Vital Signs Vital Name Observation Time Observation Value Comments S ource height 2023-05-31 14:00:00 67 [in_i] [facility] weight 2023-05-31 14:00:00 188 [lb_av] [facility] temperature 2023-05-31 14:00:00 97.6 [degF] Com mon [facility] bmi 2023-05-31 14:00:00 29.44 kg/m2 [facility] oximetry 2023-05-31 14:00:00 96 % [facility] respiratory rate 2023-05-31 14:00:00 16 /min [facility] blood pressure systolic 2023-05-31 14:00:00 122 mm[Hg] [facility] blood pressure diastolic 2023-05-31 14:00:00 80 mm[Hg] [facility] height 2023-04-28 10:00:00 67 [in_i] [facility] weight 2023-04-28 10:00:00 188 [lb_av] [facility] on [facility] temperature 2023-04-28 10:00:00 97.6 [degF] Com mon [facility] bmi 2023-04-28 10:00:00 29.44 kg/m2 [facility] oximetry 2023-04-28 10:00:00 96 % [facility] respiratory rate 2023-04-28 10:00:00 16 /min [facility] blood pressure systolic 2023-04-28 10:00:00 122 mm[Hg] [facility] diastolic 2023-04-28 10:00:00 80 mm[Hg] [facility] height 2023-02-09 14:00:00 67 [in_i] [facility] weight 2023-02-09 14:00:00 185.2 [lb_av] Co [facility]mon [facility] temperature 2023-02-09 14:00:00 97.2 [degF] Com [facility] bmi 2023-02-09 14:00:00 29 kg/m2 [facility] oximetry 2023-02-09 14:00:00 97 % [facility] respiratory rate 2023-02-09 14:00:00 16 /min [facility] blood pressure systolic 2023-02-09 14:00:00 135 mm[Hg] [facility] blood pressure diastolic 2023-02-09 14:00:00 75 mm[Hg] [facility] height 2022-12-27 08:20:00 67 [in_i] [facility] weight 2022-12-27 08:20:00 188.8 [lb_av] Co [facility] temperature 2022-12-27 08:20:00 97.9 [degF] Com [facility] bmi 2022-12-27 08:20:00 29.57 kg/m2 [facility] oximetry 2022-12-27 08:20:00 96 % [facility] respiratory rate 2022-12-27 08:20:00 16 /min [facility] blood pressure systolic 2022-12-27 08:20:00 134 mm[Hg] [facility] blood pressure diastolic 2022-12-27 08:20:00 68 mm[Hg] [facility] height 2022-10-25 10:00:00 67 [in_i] [facility] weight 2022-10-25 10:00:00 188.8 [lb_av] Co [facility] temperature 2022-10-25 10:00:00 97.7 [degF] Com [facility] bmi 2022-10-25 10:00:00 29.57 kg/m2 [facility] oximetry 2022-10-25 10:00:00 97 % [facility] respiratory rate 2022-10-25 10:00:00 16 /min [facility] blood pressure systolic 2022-10-25 10:00:00 138 mm[Hg] [facility] blood pressure diastolic 2022-10-25 10:00:00 80 mm[Hg] [facility] height 2022-08-25 14:40:00 67 [in_i] [facility] weight 2022-08-25 14:40:00 189.0 [lb_av] Co [facility] temperature 2022-08-25 14:40:00 98.4 [degF] Com [facility] bmi 2022-08-25 14:40:00 29.6 kg/m2 [facility] oximetry 2022-08-25 14:40:00 96 % [facility] respiratory rate 2022-08-25 14:40:00 16 /min [facility] blood pressure systolic 2022-08-25 14:40:00 139 mm[Hg] [facility] blood pressure diastolic 2022-08-25 14:40:00 65 mm[Hg] [facility] height 2022-05-30 14:00:00 67 [in_i] [facility] weight 2022-05-30 14:00:00 183.6 [lb_av] [facility] temperature 2022-05-30 14:00:00 98.4 [degF] Com [facility] bmi 2022-05-30 14:00:00 28.75 kg/m2 [facility] oximetry 2022-05-30 14:00:00 98 % [facility] respiratory rate 2022-05-30 14:00:00 16 /min [facility] blood pressure systolic 2022-05-30 14:00:00 132 mm[Hg] [facility] blood pressure diastolic 2022-05-30 14:00:00 70 mm[Hg] [facility] height 2022-05-30 14:00:00 67 [in_i] [facility] weight 2022-05-30 14:00:00 183.6 [lb_av] [facility] temperature 2022-05-30 14:00:00 98.4 [degF] Com [facility] bmi 2022-05-30 14:00:00 28.75 kg/m2 [facility] oximetry 2022-05-30 14:00:00 98 % [facility] respiratory rate 2022-05-30 14:00:00 16 /min [facility] blood pressure systolic 2022-05-30 14:00:00 132 mm[Hg] [facility] blood pressure diastolic 2022-05-30 14:00:00 70 mm[Hg] [facility] height 2022-05-19 14:00:00 67 [in_i] [facility] weight 2022-05-19 14:00:00 186 [lb_av] [facility] temperature 2022-05-19 14:00:00 100.5 [degF] Co [facility] bmi 2022-05-19 14:00:00 29.13 kg/m2 [facility] height 2022-02-28 11:00:00 67 [in_i] [facility] weight 2022-02-28 11:00:00 186 [lb_av] [facility] temperature 2022-02-28 11:00:00 97.7 [degF] Com [facility] bmi 2022-02-28 11:00:00 29.13 kg/m2 [facility] oximetry 2022-02-28 11:00:00 99 % [facility] respiratory rate 2022-02-28 11:00:00 17 /min [facility] blood pressure systolic 2022-02-28 11:00:00 128 mm[Hg] [facility] blood pressure diastolic 2022-02-28 11:00:00 78 mm[Hg] [facility] height 2021-10-19 14:00:00 67 [in_i] [facility] weight 2021-10-19 14:00:00 184 [lb_av] [facility] temperature 2021-10-19 14:00:00 97.9 [degF] Com [facility] bmi 2021-10-19 14:00:00 28.82 kg/m2 [facility] oximetry 2021-10-19 14:00:00 98 % [facility] respiratory rate 2021-10-19 14:00:00 18 /min [facility] blood pressure systolic 2021-10-19 14:00:00 138 mm[Hg] [facility] blood pressure diastolic 2021-10-19 14:00:00 70 mm[Hg] [facility] height 2021-07-05 14:00:00 67 [in_i] [facility] weight 2021-07-05 14:00:00 181 [lb_av] [facility] temperature 2021-07-05 14:00:00 97.0 [degF] Com [facility] bmi 2021-07-05 14:00:00 28.35 kg/m2 [facility] oximetry 2021-07-05 14:00:00 99 % [facility] respiratory rate 2021-07-05 14:00:00 16 /min [facility] blood pressure systolic 2021-07-05 14:00:00 124 mm[Hg] Common [facility] blood pressure diastolic 2021-07-05 14:00:00 64 mm[Hg] [facility] height 2021-05-12 13:00:00 67 [in_i] [facility] weight 2021-05-12 13:00:00 176 [lb_av] [facility] temperature 2021-05-12 13:00:00 96.9 [degF] Com [facility] bmi 2021-05-12 13:00:00 27.56 kg/m2 [facility] blood pressure systolic 2021-05-12 13:00:00 128 mm[Hg] [facility] blood pressure diastolic 2021-05-12 13:00:00 58 mm[Hg] [facility] height 2021-02-09 10:00:00 67 [in_i] [facility] weight 2021-02-09 10:00:00 177 [lb_av] [facility] temperature 2021-02-09 10:00:00 98.1 [degF] Com mon [facility] bmi 2021-02-09 10:00:00 27.72 kg/m2 Comm on [facility] oximetry 2021-02-09 10:00:00 99 % [facility] respiratory rate 2021-02-09 10:00:00 16 /min [facility] blood pressure systolic 2021-02-09 10:00:00 134 mm[Hg] [facility] blood pressure diastolic 2021-02-09 10:00:00 69 mm[Hg] [facility] Encounters Start Date/Time End Date/Time Encounter Type Admission Type [facility]ending [facility] Facility Care Department Encounter ID Source 2023-10-04 10:35:[facility] [id number] [facility] 2022-05-26 09:06:00 Outpatient [facility] [id number] [facility] 2022-01-19 09:21:01 Outpatient Raisa Chavarria [facility] [id number] [facility] 2022-01-14 08:49:00 [facility] [id number] [facility] 2021-07-01 10:53:00 Outpatient Raisa Chavarria [facility] [id number] [facility] 2021-05-26 14:33:34 Outpatient Rais[facility] [id number] [facility] 2021-05-26 12:21:49 Outpatient Raisa Chavarria [facility] [id number] [facility] 2021-05-26 12:20:26 Outpatient Raisa Chavarria [facility] [id number] [facility] 2021-05-26 12:12:20 Outpatient Ha Hong [facility] [id number] [facility] 2021-05-26 12:11:22 Outpatient [facility] [id number] [facility] 2021-05-26 11:56:30 Outpatient Nicole Gonsales [facility] [id number] [facility] 2021-05-26 11:06:46 Outpatient Nicole Gonsales [facility] [id number] [facility] 2021-05-26 11:04:09 Outpatient Nicole Gonsales [facility] [id number] [facility] 2021-05-26 11:03:53 Outpatient Nicole Gonsales [facility] [id number] [facility] 2021-05-26 11:02:30 Outpatient Nicole Gonsales [facility] [id number] [facility] 2021-05-26 10:59:33 Outpatient Nicole Gonsales [facility] [id number] [facility] 2023-08-31 00:00:00 2023-08-31 00:00:00 (TEL) [facility] [id number] [facility] 2023-07-21 00:00:00 2023-07-21 00:00:00 (TEL) [facility] [id number] [facility] 2023-06-18 00:00:00 2023-06-18 00:00:00 (TEL) [facility] [id number] [facility] 2023-06-13 00:00:00 2023-06-13 00:00:00 (TEL) [facility] [id number] [facility] 2023-05-31 00:00:00 2023-05-31 00:00:00 SUB ANNUAL MCR WELLNESS VISIT [facility] [id number] [facility] 2023-04-28 00:00:00 2023-04-28 00:00:00 OFFICE VISIT ESTAB PT LEVEL 4 [facility] [id number] [facility] 2023-02-14 00:00:00 2023-02-14 00:00:00 (TEL) [facility] [id number] [facility] 2023-02-09 00:00:00 2023-02-09 00:00:00 OFFICE VISIT ESTAB PT LEVEL 3 [facility] [id number] [facility] 2022-12-27 00:00:00 2022-12-27 00:00:00 OFFICE VISIT ESTAB PT LEVEL 4 [facility] [id number] [facility] 2022-11-25 00:00:00 2022-11-25 00:00:00 (TEL) [facility]C [facility] [id number] [facility] 2022-10-25 00:00:00 2022-10-25 00:00:00 OFFICE VISIT ESTAB PT LEVEL 3 [facility] [id number] [facility] 2022-08-25 00:00:00 2022-08-25 00:00:00 OFFICE VISIT ESTAB PT LEVEL 3 [facility] [id number] [facility] 2022-05-30 00:00:00 2022-05-30 00:00:00 OFFICE VISIT EST PT LEVEL 3 [facility] [id number] [facility] 2022-05-30 00:00:00 2022-05-30 00:00:00 SUB ANNUAL MCR WELLNESS VISIT [facility] [id number] [facility] 2022-05-23 00:00:00 2022-05-23 00:00:00 (TEL) [facility] [id number] [facility] 2022-05-19 00:00:00 2022-05-19 00:00:00 OFFICE VISIT ESTAB PT LEVEL 3 [facility] [id number] [facility] 2022-05-18 00:00:00 2022-05-18 00:00:00 (TEL) [facility] [id number] [facility] 2022-05-12 00:00:00 2022-05-12 00:00:00 (TEL) [facility] [id number] [facility] 2022-04-28 00:00:00 2022-04-28 00:00:00 (TEL) [facility] [id number] [facility] 2022-04-20 08:13:51 2022-04-20 08:13:51 Outpatient [facility] [id number] Geoffrey Isadora Luis A 2022-03-01 00:00:00 2022-03-01 00:00:00 (TEL) [facility] [id number] [facility] 2022-02-28 00:00:00 2022-02-28 00:00:00 OFFICE VISIT EST PT LEVEL 3 [facility] [id number] [facility] 2022-01-17 00:00:00 2022-01-17 00:00:00 (TEL) [facility] [id number] [facility] 2021-10-19 00:00:00 2021-10-19 00:00:00 OFFICE VISIT EST PT LEVEL 3 [facility] [id number] [facility] 2021-07-05 00:00:00 2021-07-05 00:00:00 OFFICE VISIT ESTAB PT LEVEL 4 [facility] [id number] [facility] 2021-05-12 00:00:00 2021-05-12 00:00:00 OFFICE VISIT ESTAB PT LEVEL 4 [facility] [id number] [facility] 2021-04-29 00:00:00 2021-04-29 00:00:00 (TEL) [facility] [id number] [facility] 2021-03-30 00:00:00 2021-03-30 00:00:00 (TEL) [facility] [id number] [facility] 2021-03-29 00:00:00 2021-03-29 00:00:00 (TEL) [facility] [id number] [facility] 2021-03-26 00:00:00 2021-03-26 00:00:00 (TEL) [facility] [id number] [facility] 2021-03-22 00:00:00 2021-03-22 00:00:00 (TEL) [facility] [id number] [facility] 2021-02-09 00:00:00 2021-02-09 00:00:00 OFFICE VISIT ESTAB PT LEVEL 4 [facility] [id number] [facility] 2021-01-08 00:00:00 2021-01-08 00:00:00 (TEL) [facility] [id number] [facility] 2020-11-30 00:00:00 2020-11-30 00:00:00 (TEL) [facility] [id number] [facility] 2020-11-27 00:00:00 2020-11-27 00:00:00 (TEL) [facility] [id number] [facility] 2020-08-25 00:00:00 2020-08-25 00:00:00 Outpatient [facility] [id number] [facility] 2020-08-11 00:00:00 2020-08-11 00:00:00 Outpatient [facility] [id number] [facility] 2020-06-19 00:00:00 2020-06-19 00:00:00 Outpatient [facility] [id number] [facility] 2020-05-19 00:00:00 2020-05-19 00:00:00 Outpatient [facility] [id number] [facility] 2020-02-19 00:00:00 2020-02-19 00:00:00 Outpatient [facility] [id number] [facility] 2019-11-12 11:00:00 2019-11-12 11:00:[address] [facility] [address] [id number] [facility] 2019-11-11 11:29:00 2019-11-11 11:29:00 [facility] [address] [facility] [id number] [facility] 2019-06-13 08:25:00 2019-06-13 08:25:[address] [facility] [address] [facility] [id number] [facility] 2019-06-11 11:15:00 2019-06-11 11:15:00 Outpatient [facility] [id number] [facility] 2019-05-30 14:30:00 2019-05-30 14:30:00 [facility] [id number] [facility] 2019-05-10 08:20:00 2019-05-10 08:20:00 [facility] [id number] [facility] 2017-08-14 10:15:00 2017-08-14 10:15:00 [facility] [id number] [facility] 2017-08-02 13:30:00 2017-08-02 13:30:[address] [facility] [id number] [facility] Results Test Description Test Time Test Comments Results Result Co mments Source CBC W/AUTO DIFF WITH [id number] 03:19:09* Test Item Value Reference Range Interpretation Comme nts WBC (test code = 1001) 4.0 K/UL 3.5-11.0 RBC (test code = 1002) 3.97 M/UL 3.80-5.40 HEMOGLOBIN (test code = 1003) 12.7 G/DL 11.5-15.5 HEMATOCRIT (test code = 1004) 38.6 % 34.0-45.0 MCV (test code = 1005) 97.2 fL 80.0-99.0 MCH (test code = 1006) 32.0 PG 25.0-33.0 MCHC (test code = 1007) 32.9 G/DL 31.0-36.0 RDW (test code = 1038) 12.0 % 11.5-15.0 NEUTROPHILS (test code = 1008) 56.6 % LYMPHOCYTES (test code = 1010) 34.4 % MONOCYTES (test code = 1011) 7.5 % EOSINOPHILS (test code = 1012) 1.0 % BASOPHILS (test code = 1013) 0.5 % IMMATURE GRANULOCYTES (test code = 1036) 0.0 % NUCLEATED RBCS (test code = 1065) 0.0 /100 WBC'S See_Comment [Automated messa ge] The system which generated this result transmitted reference range: 0.0. The reference range was not used to interpret this result as normal/abnormal. PLATELET COUNT (test code = 1015) 85 K/UL 130-400 L ABSOLUTE NEUTROPHILS (test code = 1066) 2.25 K/UL 1.50-7.50 ABSOLUTE LYMPHOCYTES (test code = 1067) 1.37 K/UL 1.00-4.00 ABSOLUTE MONOCYTES (test code = 1068) 0.30 K/UL 0.20-1.00 ABSOLUTE EOSINOPHILS (test code = 1040) 0.04 K/UL 0.00-0.50 ABSOLUTE BASOPHILS (test code = 1069) 0.02 K/UL 0.00-0.20 ABS IMMATURE GRANULOCYTES (test code = 1020) 0.00 K/UL 0.00-0.10 ABS NUCLEATED RBCS (test code = 28886) 0.00 K/UL 0.00-0.11 COMPREHENSIVE METABOLIC [id number] 03:03:47* Test Item Value Reference Range Interpretation Comme nts GLUCOSE (test code = 2216) 100 MG/DL 70-99 H BUN (test code = 2207) 17 MG/DL 8-23 CREATININE (test code = 2213) 0.83 MG/DL 0.60-1.30 eGFR (2020 CKD-EPI) (test code = 08355) 78 ML/MIN/1.73 >60 CALC BUN/CREAT (test code = 2234) 20 RATIO 6-28 SODIUM (test code = 2230) 146 MEQ/L 133-146 POTASSIUM (test code = 2227) 4.1 MEQ/L 3.5-5.4 CHLORIDE (test code = 2214) 109 MEQ/L 95-107 H CARBON DIOXIDE (test code = 2205) 26 MEQ/L 19-31 CALCIUM (test code = 2208) 9.4 MG/DL 8.5-10.5 PROTEIN, TOTAL (test code = 2228) 6.7 G/DL 6.1-8.3 ALBUMIN (test code = 2200) 4.2 G/DL 3.5-5.2 CALC GLOBULIN (test code = 2240) 2.5 G/DL 1.9-3.7 CALC A/G RATIO (test code = 2233) 1.7 RATIO 1.0-2.6 BILIRUBIN, TOTAL (test code = 2206) 0.7 MG/DL See_Comment [Automated me ssage] The system which generated this result transmitted reference range: <=1.2. The reference range was not used to interpret this result as normal/abnormal. ALKALINE PHOSPHATASE (test code = 2203) 103 U/L 40-140 AST (test code = 2218) 22 U/L 9-40 ALT (test code = 2219) 13 U/L 5-40
[2023-10-14 09:29] LABS: Absolute Lymphocytes (CBC) 1.7 K/uL (0.7-4.9); Absolute Monocytes 0.3 K/uL (0.1-1.3); Absolute Neutrophil 2.6 K/uL (1.8-8.0); Basophils % 0.4 % (0-1.3); Eosinophils % 0.4 % (0-4.4); Hematocrit 38.9 % (36.0-45.0); Hemoglobin 13.4 g/dL (12.0-15.0); Lymphocytes % 36.8 % (15.3-44.8); MCH 32.5 pg (27.0-35.0); MCHC 34.5 g/dL (32.0-36.0); MCV 94.3 fL (80-100); MPV 8.9 fL (7.6-11.3); Monocytes % 6.6 % (3.3-12.3); Neutrophils % 55.8 % (41.7-73.7); Nucleated Red Blood Cells % 0.1 % (0-0); Platelets 210 thou/uL (152-406); RBC Red Blood Cell Count 4.13 M/uL (3.86-4.86); Red Cell Distribution Width 12.4 % (12.1-15.2)
[2023-10-14 09:36] LABS: Albumin 4.1 g/dL (3.4-5.0); Albumin/Globulin Ratio 1.2 (1.1-1.8); Anion Gap 9.3 mEq/L (5.0-15.0); Bilirubin Total 1.2 mg/dL (0.2-1.0); Globulin 3.5 g/dL (2.3-3.5); Potassium 3.3 mEq/L (3.5-5.1); Protein, Total 7.6 g/dL (6.4-8.2); Troponin High Sensitivity 9.3 pg/mL (<58.9)
[2023-10-14 09:59] LABS: Specific Gravity 1.013 (1.005-1.030); Sqamous Epithelial <5 /HPF (None Seen); Urine Bacteria None Seen /HPF (<20); Urine Bilirubin NEGATIVE (Negative); Urine Blood Trace (Negative); Urine Clarity Extremely Turbid (Clear); Urine Color Light-Yellow (Yellow); Urine Culture Reflex Order REFLEXED; Urine Glucose NEGATIVE (Negative); Urine Ketones NEGATIVE (Negative); Urine Microscopic Reflex YN ORDER UMIC; Urine Mucus Slight /HPF (None Seen); Urine Nitrite 1+ (Negative); Urine Protein NEGATIVE (Negative); Urine RBC <5 /HPF (None Seen); Urine Urobilinogen Normal (Normal); Urine WBC 20-50 /HPF (<5); Urine pH 5.5 (5.0-7.0)
--- NOTE | 2023-10-14 10:40 | RAD REPORT ---
EXAM DESCRIPTION: [place] Single View10/14/2023 9:13 am CLINICAL HISTORY: Chest pain COMPARISON: 2021 FINDINGS: The lungs appear clear of acute infiltrate. The heart is normal size IMPRESSION: No acute abnormalities displayed
--- NOTE | 2023-10-14 10:40 | RAD REPORT ---
EXAM DESCRIPTION: CT - Abdomen Pelvis W Contrast - 10/14/2023 10:29 am CLINICAL HISTORY: Abdominal pain epigastric pain COMPARISON: 2016 TECHNIQUE: Computed axial tomography of the abdomen pelvis was obtained. 100 cc Isovue-300 was admin istered intravenously. Oral contrast was not requested which limits evaluation of bowel and appendix All CT scans are performed using dose optimization technique as appropriate and may include automated exposure control or mA/KV adjustment according to patient size. FINDINGS: Cholecystectomy The liver, spleen, pancreas, adrenal and kidneys appear unremarkable. There is no evidence of diverticulitis. Mild thickening wall ascending colon No adnexal mass. Small umbilical hernia. Normal appendix IMPRESSION: Mild thickening wall ascending colon may indicate a mild colitis
--- NOTE | 2023-10-14 10:49 | EDPHYS ---
Physician Documentation [facility] Name: Korin Coon Age: 68 yrs Sex: Female : 1955 Arrival Date: 10/14/2023 Time: 08:27 Bed 15 Private MD: ED Physician Feliz Melton HPI: 10/13 09:00 This 68 yrs old Female presents to ER via Ambulatory with complaints of Back Pain, jh7 Abdominal Pain. 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 The patient reports that she had an upper GI performed by Dr. Marie on Monday with 4 biopsies taken. Since then she has experienced generalized thoracic pain that has been radiating to her epigastrium. She denies any aggravating or alleviating factors, but reports that the pain is intermittent. She saw Dr. Marie again yesterday who ordered a CT abdomen/pelvis with contrast to be done outpatient. She reports that the pain was an 8 out of 10 last night, and decided to come to the ER instead. Denies pain at this moment and states that it comes in waves.. 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 - Infectious Disease History:: Denies. - Social history:: Smoking status: Patient denies any tobacco usage or history of. ROS: 09:00 Constitutional: Per HPI jh7 Exam: 09:00 Constitutional: This is a well developed, well nourished patient who is awake, alert, jh7 and in no acute distress. Head/Face: Normocephalic, atraumatic. Eyes: Pupils equal round and reactive to light, extra-ocular motions intact. Lids and lashes normal. Conjunctiva and sclera are non-icteric and not injected. Cornea within normal limits. Periorbital areas with no swelling, redness, or edema. Neck: Trachea midline, no thyromegaly or masses palpated, and no cervical lymphadenopathy. Supple, full range of motion without nuchal rigidity, or vertebral point tenderness. No Meningismus. Cardiovascular: Regular rate and rhythm with a normal S1 and S2. No gallops, murmurs, or rubs. Normal PMI, no JVD. No pulse deficits. Respiratory: Lungs have equal breath sounds bilaterally, clear to auscultation and percussion. No rales, rhonchi or wheezes noted. No increased work of breathing, no retractions or nasal flaring. Back: No spinal tenderness. No costovertebral tenderness. Full range of motion. Skin: Warm, dry with normal turgor. Normal color with no rashes, no lesions, and no evidence of cellulitis. MS/ Extremity: Pulses equal, no cyanosis. Neurovascular intact. Full, normal range of motion. Neuro: Awake and alert, GCS 15, oriented to person, place, time, and situation. Motor strength 5/5 in all extremities. Sensory grossly intact. Normal gait. 09:00 Abdomen/GI: Inspection: abdomen appears normal, Bowel sounds: normal, Palpation: soft, mild abdominal tenderness, in the epigastric area, Vital Signs: 08:43 BP 171 / 83; Pulse 84; Resp 18; Temp 98; Pulse Ox 100% ; Weight 79.38 kg; Height 5 ft. mb9 6 in. ; Pain 8/10; 10:44 BP 131 / 77; Pulse 73; Resp 18; Pulse Ox 100% on R/A; mb9 08:43 Body Mass Index 28.25 (79.38 kg, 167.64 cm) mb9 08:43 Pain Scale: Adult mb9 MDM: 08:54 Patient medically screened. [facility] 10:42 Differential diagnosis: Pyelonephritis Ureterolithiasis Colitis, diverticulitis, jh7 pancreatitis, UTI, gastritis, PUD. Data reviewed: vital signs, nurses notes, lab test result(s), EKG, radiologic studies, CT scan. I considered the following discharge prescriptions or medication management in the emergency department Medications were administered in the Emergency Department. See MAR. Independent interpretation of the following test(s) in the Emergency Department EKG: See my EKG interpretation above. Care significantly affected by the following chronic conditions: Hypertension. 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 ED course: Patient stated she was also concerned about UTI due to her urine appearing more " foamy" than normal. Informed her that the ciprofloxacin used to treat the colitis would also cover for UTI pending urine culture.. 10/13 09:05 Order name: CBC with Diff; Complete Time: 09:50 [facility] 10/13 09:05 Order name: CMP; Complete Time: 09:50 [facility] 10/13 09:05 Order name: Lipase; Complete Time: 09:50 [facility] 10/13 09:05 Order name: Urinalysis w/ reflexes; Complete Time: 10:41 [facility] 10/13 09:05 Order name: Troponin High Sensitivity; Complete Time: 09:50 [facility] 10/13 10:04 Order name: Urine Culture [facility] 10/13 09:05 Order name: CT Abd/Pelvis - IV Contrast Only; Complete Time: 10:41 [facility] 10/13 09:05 Order name: XRAY Chest (1 view); Complete Time: 10:41 [facility] 10/13 09:05 Order name: IV Saline Lock; Complete Time: 09:05 [facility] 10/13 09:05 Order name: Labs collected and sent; Complete Time: 09:05 [facility] 10/13 09:05 Order name: EKG - Nurse/Tech; Complete Time: 09:10 [facility] EC:12 Rate is 74 beats/min. Rhythm is regular. QRS [place] is Normal. TN interval is normal at [facility] 168 msec. QRS interval is prolonged at 132 msec. QT interval is normal at 416 msec. Clinical impression: Sinus rhythm with bifascicular block. Administered Medications: No medications were administered Disposition Summary: 10/14/23 10:48 Discharge Ordered Notes: Location: Home [facility] Problem: new [facility] Symptoms: are unchanged [facility] Condition: Stable [facility] Diagnosis - Colitis [facility] Followup: [facility] - With: Hector Gross MD - When: 2 - 3 days - Reason: Recheck today's complaints Discharge Instructions: - Discharge Summary Sheet [facility] - Colitis [facility] Forms: - Medication Reconciliation Form [facility] - Antibiotic Education [facility] - Patient Portal Instructions [facility] - Leadership Thank You Letter [facility] Prescriptions: - Cipro 500 mg Oral tablet - take 1 tablet ORAL route every 12 hours for 7 days; 14 tablet; Refills: 0, [facility] Product Selection Permitted - Flagyl 500 mg Oral Tablet - take 1 tablet ORAL route every 12 hours for 7 days; 14 tablet; Refills: 0, [facility] Product Selection Permitted Addendum: 10/17/2023 14:10 I was immediately available for consultation during this patient's visit. I did not e c2 personally see the patient or discuss the patient with the PARKER. . Signatures: Dispatcher [employer] Annie Ceja, PROFESSOR OF INDUSTRIAL TECHNOLOGY PROFESSOR OF INDUSTRIAL TECHNOLOGY 7 Jonna Sullivan RN RN mb9 Feliz Melton MD MD ec2
--- NOTE | 2023-10-14 10:49 | ER ---
Nurse's Notes [facility] Name: Korin Coon Age: 68 yrs Sex: Female : 1955 Arrival Date: 10/14/2023 Time: 08:27 Bed 15 Private MD: Diagnosis: Colitis Presentation: 10/13 08:43 Chief complaint: Patient states: "Monday I had a GI scope done by Dr. Gross. Ever mb9 since then, I had pain in my upper back. Yesterday, it got worse on the left back and radiates to my stomach.". Coronavirus screen: Vaccine status: Patient reports receiving the 2nd dose of the covid vaccine. Ebola Screen: No symptoms or risks identified at this time. Initial Sepsis Screen: Does the patient meet any 2 criteria? No. Patient's initial sepsis screen is negative. Does the patient have a suspected source of infection? No. Patient's initial sepsis screen is negative. Risk Assessment: Do you want to hurt yourself or someone else? Patient reports no desire to harm self or others. Onset of symptoms was October 14, 2023. 08:43 Method Of Arrival: Ambulatory mb9 08:43 Acuity: MAYCOL 3 mb9 Triage Assessment: 08:47 General: Appears in no apparent distress. Behavior is calm, cooperative. Pain: mb9 Complains of pain in back Pain radiates to LUQ/LLQ Pain currently is 8 out of 10 on a pain scale. Quality of pain is described as throbbing, Pain began 1 week ago. EENT: No signs and/or symptoms were reported regarding the EENT system. Neuro: Simon Agitation-Sedation Scale (RASS): 0 - Alert and Calm Level of Consciousness is awake, alert, obeys commands, Oriented to person, place, time, situation, Appropriate for age. Cardiovascular: Patient's skin is warm and dry. Respiratory: Airway is patent Respiratory effort is even, unlabored, Respiratory pattern is regular, symmetrical. GI: Abdomen is round non-distended, Bowel sounds present X 4 quads. Abd is soft and non tender X 4 quads. Patient currently denies diarrhea, nausea, vomiting. : Denies burning with urination. Derm: Skin is pink, warm \\T\\ dry. Musculoskeletal: Range of motion: intact in all extremities. 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 - Infectious Disease History:: Denies. - Social history:: Smoking status: Patient denies any tobacco usage or history of. Screenin:48 [facility] ED Fall Risk Assessment (Adult) History of falling in the last 3 months, mb9 including since admission No falls in past 3 months (0 pts) Confusion or Disorientation No (0 pts) Intoxicated or Sedated No (0 pts) Impaired Gait No (0 pts) Mobility Assist Device Used No (0 pt) Altered Elimination No (0 pt) Score/Fall Risk Level 0 - 2 = Low Risk Oriented to surroundings, Maintained a safe environment, Educated pt \\T\\ family on fall prevention, incl call for assistance when getting out of bed. Abuse screen: Denies threats or abuse. Nutritional screening: No deficits noted. Tuberculosis screening: No symptoms or risk factors identified. Assessment: 08:48 Reassessment: see triage assessment. mb9 10:45 Reassessment: No changes from previously documented assessment. Patient and/or family mb9 updated on plan of care and expected duration. Pain level reassessed. Patient is alert, oriented x 3, equal unlabored respirations, skin warm/dry/pink. Vital Signs: 08:43 BP 171 / 83; Pulse 84; Resp 18; Temp 98; Pulse Ox 100% ; Weight 79.38 kg; Height 5 ft. mb9 6 in. ; Pain 8/10; 10:44 BP 131 / 77; Pulse 73; Resp 18; Pulse Ox 100% on R/A; mb9 08:43 Body Mass Index 28.25 (79.38 kg, 167.64 cm) mb9 08:43 Pain Scale: Adult mb9 ED Course: 08:29 Patient arrived in ED. rg4 08:36 Jonna Sullivan, RN is Primary Nurse. mb9 08:43 Arm band placed on. mb9 08:45 Triage completed. mb9 08:48 Placed in gown. Bed in low position. Call light in reach. Side rails up X 1. Provided mb9 Education on: press call light if needing anything. Client placed on continuous cardiac and pulse oximetry monitoring. NIBP monitoring applied. Door closed. Noise minimized. Warm blanket given. Pillow given. 08:49 No provider procedures requiring assistance completed. mb9 08:54 [facility] jh7 08:54 Feliz Melton MD is Attending Physician. jh7 09:05 Initial lab(s) drawn, by mo, sent to lab. Inserted saline lock: 20 gauge in right mb9 antecubital area, using aseptic technique. Blood collected. 09:10 EKG done, by ED staff, reviewed by Annie PARKER. mb9 09:15 XRAY Chest (1 view) In Process Unspecified. EDMS 09:50 Urinalysis w/ reflexes Sent. mb9 09:51 Urine collected: clean catch specimen, clear. mb9 10:[address] via wheelchair. mb9 10:30 CT Abd/Pelvis - IV Contrast Only In Process Unspecified. EDMS 10:48 Hector Gross MD is Referral Physician. jh7 10:54 IV discontinued, intact, bleeding controlled, No redness/swelling at site. Pressure mb9 dressing applied. Administered Medications: No medications were administered Medication: 08:49 VIS not applicable for this client. mb9 Outcome: 10:48 Discharge ordered by . jh7 10:54 Discharged to home ambulatory, mb9 10:54 Condition: stable 10:54 Discharge instructions given to patient, Instructed on discharge instructions, follow up and referral plans. Demonstrated understanding of instructions, follow-up care, medications, Prescriptions given X 2, 11:00 Patient left the ED. mb9 Signatures: Dispatcher [employer] Kait Degroot rg4 Annie Owusu FNP RN [employer]ICAL 7 Jonna Sullivan, CARIDAD RN mb9
[2023-10-14 11:20] VITALS: BP 131/77; TEMP 98; O2SAT 100
--- NOTE | 2023-10-16 14:58 | EKG ---
Test Date: 2023-10-14 Test Time: 09:12:12 Fence Laborer: MB MEASUREMENT RESULTS: Intervals: Rate: 74 FL: 168 QRSD: 132 QT: 416 QTc: 461 [place]: P: 55 FL: 168 QRS: -52 T: 39 INTERPRETIVE STATEMENTS: Normal sinus rhythm Right bundle branch block Left anterior fascicular block Bifascicular block Abnormal ECG Compared to ECG 02/20/2022 07:05:03 Myocardial infarct finding no longer present Bifascicular block still present Electronically Signed On 10-16-23 14:52:27 CDT by Sebastian Ordonez
== END 2023-10-14 11:00 | disposition home or self-care (01) ==
LOC: ER 08:27
DX: K52.9 Noninfective gastroenteritis and colitis, unspecified (principal); M54.6 Pain in thoracic spine
CPT/HCPCS: 93005; 87088; 85025; 81001; 87086; 36415; 87077 ×2; 87186 ×2; 84484; 83690; 80053; 74177; 71045; 99284; Q9967

== ENCOUNTER 2023-12-28 04:44 | Observation (INO) | payer OTHER ==
--- OUTSIDE RECORDS SUMMARY | 2023-12-28 04:48 | XMS REPORT | Continuity of Care Document ---
Author Name Unknown Address [address] [facility] [place] [address] [facility] thconnect Address [address] [facility] [place] [address] Care Team Providers Care Tree Driller Name Role Phone Raisa Chavarria Attending Clinician Unavailable Ha Hong Attending Clinician Unavailable Nicole Gonsales Attending Clinician Unavailable Payers Payer Name Policy Type Policy Number Effective Date Expirati on Date Source [place] [id number] [id number] 2019 00:00:00 [facility] C1 [id number] 2019 00:00:00 [facility] C1 [id number] 2019 00:00:00 [facility] C1 [id number] 2019 00:00:00 [facility] C1 [id number] 2019 00:00:00 [facility] C1 [id number] 2019 00:00:00 [facility] C1 [id number] 2019 00:00:00 [facility] Problems Condition Name Condition Details Condition Category Status Onset Date Resolution Date Last Treatment Date Treating Clinician Comments Source [id number] Abnormal mammogram Problem [facility] [id number] 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 Problem [facility] [id number] Post COVID-19 condition, unspecifie d Problem [facility] [id number] Family history of heart disease Problem [facility] [id number] Lower extremity edema Problem [facility] [id number] Other chronic pain Problem [facility] [id number] Pain in right knee Problem [facility] [id number] Depression , unspecifie d depression type Problem [facility] [id number] Attention deficit disorder, unspecifie d hyperactiv ity presence Problem [facility] [id number] Fatty liver Problem [facility] Sinus problem Sinus problem Problem [facility] Memory deficit Memory deficit Problem [facility] [id number] Seasonal allergies Problem [facility] Essential hypertensi on Benign essential HTN Problem [facility] Hyperglyce leslie Hyperglyce leslie Problem [facility] [id number] Anxiety Problem [facility] Thrombocyt openia Thrombocyt openia Problem [facility] [id number] Chronic constipati on Problem [facility] Hyperlipid aemia Hyperlipem ia Problem [facility] [id number] Chronic diarrhea Problem [facility] Leukopenia Leukopenia Problem [facility] Left shoulder pain Left shoulder pain Problem [facility] [id number] August's esophageal ulceration Problem [facility] Social History Social Habit Start Date Stop Date Quantity Comments Source History of Tobacco Use [facility] Sex Assigned At [facility] Smoking Status Start Date Stop Date Source Never Smoker [facility] Medications Ordered Medication Name Filled Medication Name Start Date Stop Date Current Medication? Ordering Clinician Indication Dosage Frequency Signature (SIG) Comments Components Source predniSONE 10 MG predniSONE 10 MG 12-17 00:00: 00 No 1{table t} QD predniSONE 10 MG Paxlovid (300/100) 20 x 150 MG & 10 x 100MG Paxlovid (300/100) 20 x 150 MG & 10 x 100MG 12-17 00:00: 00 No 3{table ts} BID Paxlovid (300/100) 20 x 150 MG & 10 x 100MG Azithromyci n 250 MG Azithromyci n 250 MG 12-17 00:00: 00 No QD Azithromyc in 250 MG Benzonatate 100 MG Benzonatate 100 MG 12-17 00:00: 00 No 1{capsu le_as_n eeded} TID Benzonatat e 100 MG Ketorolac Tromethamin e Ketorolac Tromethamin e 2022-05 00:00: 00 No 60mg [facility] Pravastatin Sodium 40 MG Pravastatin Sodium 40 MG No QD Pravastati n Sodium 40 MG Losartan Potassium 100 MG Losartan Potassium 100 MG No 1{table t} QD Losartan Potassium 100 MG amLODIPine Besylate 5 MG amLODIPine Besylate 5 MG No 1{table t} QD amLODIPine Besylate 5 MG Pantoprazol e Sodium 40 MG Pantoprazol e Sodium 40 MG No 1{table t} QD Pantoprazo le Sodium 40 MG Montelukast Sodium 10 MG Montelukast Sodium 10 MG No Montelukas t Sodium 10 MG busPIRone HCl 10 MG busPIRone HCl 10 MG No 1{table t} QD busPIRone HCl 10 MG Culturelle - Culturelle - No Culturelle - hydroCHLORO thiazide 12.5 MG hydroCHLORO thiazide 12.5 MG No hydroCHLOR Othiazide 12.5 MG Immunizations Ordered Immunization Name Filled Immunization Name Date Status Comments Source Moderna COVID-19 Vaccine Moderna COVID-19 Vaccine 2021-01-02 15:06:00 Completed [facility] Moderna COVID-19 Vaccine Moderna COVID-19 Vaccine 2021-01-02 15:06:00 Completed [facility] Moderna COVID-19 Vaccine Moderna COVID-19 Vaccine 2021-01-02 15:06:00 Completed [facility] Moderna COVID-19 Vaccine Moderna COVID-19 Vaccine 2021-01-02 15:06:00 Completed [facility] Moderna COVID-19 Vaccine Moderna COVID-19 Vaccine 2021-01-02 15:06:00 Completed [facility] Moderna COVID-19 Vaccine Moderna COVID-19 Vaccine 2021-01-02 15:06:00 Completed [facility] Moderna COVID-19 Vaccine Moderna COVID-19 Vaccine 2021-01-02 15:06:00 Completed [facility] Moderna COVID-19 Vaccine Moderna COVID-19 Vaccine 2021-01-02 15:06:00 Completed [facility] Moderna COVID-19 Vaccine Moderna COVID-19 Vaccine 2021-01-02 15:06:00 Completed [facility] Moderna COVID-19 Vaccine Moderna COVID-19 Vaccine 2021-01-02 15:06:00 Completed [facility] Moderna COVID-19 Vaccine Moderna COVID-19 Vaccine 2021-01-02 15:06:00 Completed [facility] Moderna COVID-19 Vaccine Moderna COVID-19 Vaccine 2021-01-02 15:06:00 Completed [facility] Moderna COVID-19 Vaccine Moderna COVID-19 Vaccine 2020-07-11 15:08:00 Completed [facility] Moderna COVID-19 Vaccine Moderna COVID-19 Vaccine 2020-07-11 15:08:00 Completed [facility] Moderna COVID-19 Vaccine Moderna COVID-19 Vaccine 2020-07-11 15:08:00 Completed [facility] Moderna COVID-19 Vaccine Moderna COVID-19 Vaccine 2020-07-11 15:08:00 Completed [facility] Moderna COVID-19 Vaccine Moderna COVID-19 Vaccine 2020-07-11 15:08:00 Completed [facility] Moderna COVID-19 Vaccine Moderna COVID-19 Vaccine 2020-07-11 15:08:00 Completed [facility] Moderna COVID-19 Vaccine Moderna COVID-19 Vaccine 2020-07-11 15:08:00 Completed [facility] Moderna COVID-19 Vaccine Moderna COVID-19 Vaccine 2020-07-11 15:08:00 Completed [facility] Moderna COVID-19 Vaccine Moderna COVID-19 Vaccine 2020-07-11 15:08:00 Completed [facility] Moderna COVID-19 Vaccine Moderna COVID-19 Vaccine 2020-07-11 15:08:00 Completed [facility] Moderna COVID-19 Vaccine Moderna COVID-19 Vaccine 2020-07-11 15:08:00 Completed [facility] Moderna COVID-19 Vaccine Moderna COVID-19 Vaccine 2020-07-11 15:08:00 Completed [facility] Moderna COVID-19 Vaccine Moderna COVID-19 Vaccine 2020-06-05 15:11:00 Completed [facility] Moderna COVID-19 Vaccine Moderna COVID-19 Vaccine 2020-06-05 15:11:00 Completed [facility] Moderna COVID-19 Vaccine Moderna COVID-19 Vaccine 2020-06-05 15:11:00 Completed [facility] Moderna COVID-19 Vaccine Moderna COVID-19 Vaccine 2020-06-05 15:11:00 Completed [facility] Moderna COVID-19 Vaccine Moderna COVID-19 Vaccine 2020-06-05 15:11:00 Completed [facility] Moderna COVID-19 Vaccine Moderna COVID-19 Vaccine 2020-06-05 15:11:00 Completed [facility] Moderna COVID-19 Vaccine Moderna COVID-19 Vaccine 2020-06-05 15:11:00 Completed [facility] Moderna COVID-19 Vaccine Moderna COVID-19 Vaccine 2020-06-05 15:11:00 Completed [facility] Moderna COVID-19 Vaccine Moderna COVID-19 Vaccine 2020-06-05 15:11:00 Completed [facility] Moderna COVID-19 Vaccine Moderna COVID-19 Vaccine 2020-06-05 15:11:00 Completed [facility] Moderna COVID-19 Vaccine Moderna COVID-19 Vaccine 2020-06-05 15:11:00 Completed [facility] Moderna COVID-19 Vaccine Moderna COVID-19 Vaccine 2020-06-05 15:11:00 Completed [facility] Moderna COVID-19 Vaccine Moderna COVID-19 Vaccine Unknown Completed [facility] Moderna COVID-19 Vaccine Moderna COVID-19 Vaccine Unknown Completed [facility] Moderna COVID-19 Vaccine Moderna COVID-19 Vaccine Unknown Completed [facility] Moderna COVID-19 Vaccine Moderna COVID-19 Vaccine Unknown Completed [facility] Moderna COVID-19 Vaccine Moderna COVID-19 Vaccine Unknown Completed [facility] Moderna COVID-19 Vaccine Moderna COVID-19 Vaccine Unknown Completed [facility] Moderna COVID-19 Vaccine Moderna COVID-19 Vaccine Unknown Completed [facility] Moderna COVID-19 Vaccine Moderna COVID-19 Vaccine Unknown Completed [facility] Moderna COVID-19 Vaccine Moderna COVID-19 Vaccine Unknown Completed [facility] Moderna COVID-19 Vaccine Moderna COVID-19 Vaccine Unknown Completed [facility] Moderna COVID-19 Vaccine Moderna COVID-19 Vaccine Unknown Completed [facility] Moderna COVID-19 Vaccine Moderna COVID-19 Vaccine Unknown Completed [facility] Moderna COVID-19 Vaccine Moderna COVID-19 Vaccine Unknown Completed [facility] Moderna COVID-19 Vaccine Moderna COVID-19 Vaccine Unknown Completed [facility] Moderna COVID-19 Vaccine Moderna COVID-19 Vaccine Unknown Completed [facility] Moderna COVID-19 Vaccine Moderna COVID-19 Vaccine Unknown Completed [facility] Moderna COVID-19 Vaccine Moderna COVID-19 Vaccine Unknown Completed [facility] Moderna COVID-19 Vaccine Moderna COVID-19 Vaccine Unknown Completed [facility] Moderna COVID-19 Vaccine Moderna COVID-19 Vaccine Unknown Completed [facility] Moderna COVID-19 Vaccine Moderna COVID-19 Vaccine Unknown Completed [facility] Moderna COVID-19 Vaccine Moderna COVID-19 Vaccine Unknown Completed [facility] Moderna COVID-19 Vaccine Moderna COVID-19 Vaccine Unknown Completed [facility] Moderna COVID-19 Vaccine Moderna COVID-19 Vaccine Unknown Completed [facility] Moderna COVID-19 Vaccine Moderna COVID-19 Vaccine Unknown Completed [facility] Moderna COVID-19 Vaccine Moderna COVID-19 Vaccine Unknown Completed [facility] Moderna COVID-19 Vaccine Moderna COVID-19 Vaccine Unknown Completed [facility] Moderna COVID-19 Vaccine Moderna COVID-19 Vaccine Unknown Completed [facility] Moderna COVID-19 Vaccine Moderna COVID-19 Vaccine Unknown Completed [facility] Moderna COVID-19 Vaccine Moderna COVID-19 Vaccine Unknown Completed [facility] Moderna COVID-19 Vaccine Moderna COVID-19 Vaccine Unknown Completed [facility] Moderna COVID-19 Vaccine Moderna COVID-19 Vaccine Unknown Completed [facility] Moderna COVID-19 Vaccine Moderna COVID-19 Vaccine Unknown Completed [facility] Moderna COVID-19 Vaccine Moderna COVID-19 Vaccine Unknown Completed [facility] Moderna COVID-19 Vaccine Moderna COVID-19 Vaccine Unknown Completed [facility] Moderna COVID-19 Vaccine Moderna COVID-19 Vaccine Unknown Completed [facility] Moderna COVID-19 Vaccine Moderna COVID-19 Vaccine Unknown Completed [facility] Moderna COVID-19 Vaccine Moderna COVID-19 Vaccine Unknown Completed [facility] Moderna COVID-19 Vaccine Moderna COVID-19 Vaccine Unknown Completed [facility] Moderna COVID-19 Vaccine Moderna COVID-19 Vaccine Unknown Completed [facility] Moderna COVID-19 Vaccine Moderna COVID-19 Vaccine Unknown Completed [facility] Moderna COVID-19 Vaccine Moderna COVID-19 Vaccine Unknown Completed [facility] Moderna COVID-19 Vaccine Moderna COVID-19 Vaccine Unknown Completed [facility] Vital Signs Vital Name Observation Time Observation Value Comments S ource height 2023-12-18 16:20:00 67 [in_i] [facility] weight 2023-12-18 16:20:00 175 [lb_av] [facility] temperature 2023-12-18 16:20:00 99.0 [degF] [facility] bmi 2023-12-18 16:20:00 27.41 kg/m2 [facility] height 2023-11-15 08:40:00 67 [in_i] [facility] weight 2023-11-15 08:40:00 174.6 [lb_av] [facility] temperature 2023-11-15 08:40:00 97.2 [degF] Com [facility] bmi 2023-11-15 08:40:00 27.34 kg/m2 [facility] oximetry 2023-11-15 08:40:00 100 % [facility] respiratory rate 2023-11-15 08:40:00 15 /min [facility] blood pressure systolic 2023-11-15 08:40:00 122 mm[Hg] Common [facility] blood pressure diastolic 2023-11-15 08:40:00 68 mm[Hg] [facility] height 2023-10-16 13:20:00 67 [in_i] [facility] weight 2023-10-16 13:20:00 172 [lb_av] [facility] bmi 2023-10-16 13:20:00 26.94 kg/m2 [facility] height 2023-05-31 14:00:00 67 [in_i] [facility] weight 2023-05-31 14:00:00 188 [lb_av] [facility] temperature 2023-05-31 14:00:00 97.6 [degF] [facility] bmi 2023-05-31 14:00:00 29.44 kg/m2 [facility] oximetry 2023-05-31 14:00:00 96 % [facility] respiratory rate 2023-05-31 14:00:00 16 /min [facility] blood pressure systolic 2023-05-31 14:00:00 122 mm[Hg] [facility] blood pressure diastolic 2023-05-31 14:00:00 80 mm[Hg] [facility] height 2023-04-28 10:00:00 67 [in_i] [facility] weight 2023-04-28 10:00:00 188 [lb_av] [facility] temperature 2023-04-28 10:00:00 97.6 [degF] Com [facility] bmi 2023-04-28 10:00:00 29.44 kg/m2 [facility] oximetry 2023-04-28 10:00:00 96 % [facility] respiratory rate 2023-04-28 10:00:00 16 /min [facility] blood pressure systolic 2023-04-28 10:00:00 122 mm[Hg] [facility] blood pressure diastolic 2023-04-28 10:00:00 80 mm[Hg] [facility] height 2023-02-09 14:00:00 67 [in_i] [facility] weight 2023-02-09 14:00:00 185.2 [lb_av] [facility] temperature 2023-02-09 14:00:00 97.2 [degF] Com [facility] bmi 2023-02-09 14:00:00 29 kg/m2 [facility] oximetry 2023-02-09 14:00:00 97 % [facility] respiratory rate 2023-02-09 14:00:00 16 /min [facility] blood pressure systolic 2023-02-09 14:00:00 135 mm[Hg] [facility] blood pressure diastolic 2023-02-09 14:00:00 75 mm[Hg] [facility] height 2022-12-27 08:20:00 67 [in_i] [facility] weight 2022-12-27 08:20:00 188.8 [lb_av] [facility] temperature 2022-12-27 08:20:00 97.9 [degF] Com [facility] bmi 2022-12-27 08:20:00 29.57 kg/m2 [facility] oximetry 2022-12-27 08:20:00 96 % [facility] respiratory rate 2022-12-27 08:20:00 16 /min [facility] blood pressure systolic 2022-12-27 08:20:00 134 mm[Hg] [facility] blood pressure diastolic 2022-12-27 08:20:00 68 mm[Hg] [facility] height 2022-10-25 10:00:00 67 [in_i] [facility] weight 2022-10-25 10:00:00 188.8 [lb_av] [facility] temperature 2022-10-25 10:00:00 97.7 [degF] [facility] bmi 2022-10-25 10:00:00 29.57 kg/m2 [facility] oximetry 2022-10-25 10:00:00 97 % [facility] respiratory rate 2022-10-25 10:00:00 16 /min [facility] blood pressure systolic 2022-10-25 10:00:00 138 mm[Hg] [facility] blood pressure diastolic 2022-10-25 10:00:00 80 mm[Hg] [facility] height 2022-08-25 14:40:00 67 [in_i] [facility] weight 2022-08-25 14:40:00 189.0 [lb_av] [facility] temperature 2022-08-25 14:40:00 98.4 [degF] [facility] bmi 2022-08-25 14:40:00 29.6 kg/m2 [facility] oximetry 2022-08-25 14:40:00 96 % [facility] respiratory rate 2022-08-25 14:40:00 16 /min [facility] blood pressure systolic 2022-08-25 14:40:00 139 mm[Hg] [facility] blood pressure diastolic 2022-08-25 14:40:00 65 mm[Hg] [facility] height 2022-05-30 14:00:00 67 [in_i] [facility] weight 2022-05-30 14:00:00 183.6 [lb_av] [facility] temperature 2022-05-30 14:00:00 98.4 [degF] Com [facility] bmi 2022-05-30 14:00:00 28.75 kg/m2 [facility] oximetry 2022-05-30 14:00:00 98 % [facility] respiratory rate 2022-05-30 14:00:00 16 /min [facility] blood pressure systolic 2022-05-30 14:00:00 132 mm[Hg] [facility] blood pressure diastolic 2022-05-30 14:00:00 70 mm[Hg] [facility] height 2022-05-30 14:00:00 67 [in_i] [facility] weight 2022-05-30 14:00:00 183.6 [lb_av] [facility] temperature 2022-05-30 14:00:00 98.4 [degF] Com [facility] bmi 2022-05-30 14:00:00 28.75 kg/m2 [facility] oximetry 2022-05-30 14:00:00 98 % [facility] respiratory rate 2022-05-30 14:00:00 16 /min [facility] blood pressure systolic 2022-05-30 14:00:00 132 mm[Hg] [facility] blood pressure diastolic 2022-05-30 14:00:00 70 mm[Hg] [facility] height 2022-05-19 14:00:00 67 [in_i] [facility] weight 2022-05-19 14:00:00 186 [lb_av] [facility] temperature 2022-05-19 14:00:00 100.5 [degF] [facility] bmi 2022-05-19 14:00:00 29.13 kg/m2 [facility] height 2022-02-28 11:00:00 67 [in_i] [facility] weight 2022-02-28 11:00:00 186 [lb_av] [facility] temperature 2022-02-28 11:00:00 97.7 [degF] Com [facility] bmi 2022-02-28 11:00:00 29.13 kg/m2 [facility] oximetry 2022-02-28 11:00:00 99 % [facility] respiratory rate 2022-02-28 11:00:00 17 /min [facility] blood pressure systolic 2022-02-28 11:00:00 128 mm[Hg] [facility] blood pressure diastolic 2022-02-28 11:00:00 78 mm[Hg] [facility] height 2021-10-19 14:00:00 67 [in_i] [facility] weight 2021-10-19 14:00:00 184 [lb_av] [facility] temperature 2021-10-19 14:00:00 97.9 [degF] Com [facility] bmi 2021-10-19 14:00:00 28.82 kg/m2 [facility] oximetry 2021-10-19 14:00:00 98 % [facility] respiratory rate 2021-10-19 14:00:00 18 /min [facility] blood pressure systolic 2021-10-19 14:00:00 138 mm[Hg] [facility] blood pressure diastolic 2021-10-19 14:00:00 70 mm[Hg] [facility] height 2021-07-05 14:00:00 67 [in_i] [facility] weight 2021-07-05 14:00:00 181 [lb_av] [facility] temperature 2021-07-05 14:00:00 97.0 [degF] Com [facility] bmi 2021-07-05 14:00:00 28.35 kg/m2 [facility] oximetry 2021-07-05 14:00:00 99 % [facility] respiratory rate 2021-07-05 14:00:00 16 /min [facility] blood pressure systolic 2021-07-05 14:00:00 124 mm[Hg] [facility] blood pressure diastolic 2021-07-05 14:00:00 64 mm[Hg] [facility] height 2021-05-12 13:00:00 67 [in_i] [facility] weight 2021-05-12 13:00:00 176 [lb_av] [facility] temperature 2021-05-12 13:00:00 96.9 [degF] Com [facility] bmi 2021-05-12 13:00:00 27.56 kg/m2 [facility] blood pressure systolic 2021-05-12 13:00:00 128 mm[Hg] [facility] blood pressure diastolic 2021-05-12 13:00:00 58 mm[Hg] [facility] height 2021-02-09 10:00:00 67 [in_i] [facility] weight 2021-02-09 10:00:00 177 [lb_av] [facility] temperature 2021-02-09 10:00:00 98.1 [degF] Com [facility] bmi 2021-02-09 10:00:00 27.72 kg/m2 [facility] oximetry 2021-02-09 10:00:00 99 % [facility] respiratory rate 2021-02-09 10:00:00 16 /min [facility] blood pressure systolic 2021-02-09 10:00:00 134 mm[Hg] [facility] blood pressure diastolic 2021-02-09 10:00:00 69 mm[Hg] [facility] Encounters Start Date/Time End Date/Time Encounter Type Admission Type Attending Clinicians Care Facility Care Department Encounter ID Source 2023-10-27 10:39:00 Out[facility] Raisa STCANDELARIOLC STLMLC [id number] [facility] 2023-10-16 10:27:00 Outpatient Nahum Chavarriaa STLMLC STLMLC [id number] [facility] 2023-10-04 10:35:00 Outpatient Nahum Chavarriaa [facility] STL[facility] [id number] [facility] 2022-05-26 09:06:00 Outpatient Deon Raisa STLMLC STLMLC [id number] [facility] 2022-01-19 09:21:01 Outpatient Raisa Chavarria [facility] STLML[facility] [id number] [facility] 2022-01-14 08:49:00 Outpatient DeonRaisa STCANDELARIOLC STLMLC [id number] [facility] 2021-07-01 10:53:00 Outpatient Raisa Chavarria [facility] STL[facility]C [id number] [facility] 2021-05-26 14:33:34 Outpatient Raisa Chavarria STLMLC STL[facility]C [id number] [facility] 2021-05-26 12:21:49 Outpatient Nahum Chavarriaa STLMLC STLMLC [id number] [facility] 2021-05-26 12:20:26 Outpatient Raisa Chavarria STLMLC STLMLC [id number] [facility] 2021-05-26 12:12:20 Outpatient Ha Hong STLMLC STLMLC [id number] [facility] 2021-05-26 12:11:22 Outpatient [facility] STL[facility] [id number] [facility] 2021-05-26 11:56:30 Outpatient Nicole Gonsales STLMLC STLMLC [id number] [facility] 2021-05-26 11:06:46 Outpatient Nicole Gonsales STLMLC STL[facility]C [id number] [facility] 2021-05-26 11:04:09 Outpatient Nicole Gonsales STLMLC STLMLC [id number] [facility] 2021-05-26 11:03:53 Outpatient Nicole Gonsales STLMLC STLMLC [id number] [facility] 2021-05-26 11:02:30 Outpatient Nicole Gonsales STLMLC STL[facility]C [id number] [facility] 2021-05-26 10:59:33 Outpatient Nicole Gonsales STLMLC STLMLC [id number] [facility] 2023-12-18 00:00:00 2023-12-18 00:00:00 OFFICE VISIT ESTAB PT LEVEL 4 STLMLC STLMLC [id number] [facility] 2023-12-18 00:00:00 2023-12-18 00:00:00 (TEL) STLMLC STLMLC [id number] [facility] 2023-11-15 00:00:00 2023-11-15 00:00:00 OFFICE VISIT ESTAB PT LEVEL 4 [facility]LMLC STLMLC [id number] [facility] 2023-10-31 00:00:00 2023-10-31 00:00:00 (TEL) STLMLC STLMLC [id number] [facility] 2023-10-26 00:00:00 2023-10-26 00:00:00 (TEL) STLMLC STLMLC [id number] [facility] 2023-10-16 00:00:00 2023-10-16 00:00:00 OFFICE VISIT ESTAB PT LEVEL 3 [facility] STL[facility]C [id number] [facility] 2023-08-31 00:00:00 2023-08-31 00:00:00 (TEL) STLMLC STLMLC [id number] [facility] 2023-07-21 00:00:00 2023-07-21 00:00:00 (TEL) STLMLC STLMLC [id number] [facility] 2023-06-18 00:00:00 2023-06-18 00:00:00 (TEL) STLMLC STLMLC [id number] [facility] 2023-06-13 00:00:00 2023-06-13 00:00:00 (TEL) STLMLC STLMLC [id number] [facility] 2023-05-31 00:00:00 2023-05-31 00:00:00 SUB ANNUAL [facility] VISIT STLMLC STLMLC [id number] [facility] 2023-04-28 00:00:00 2023-04-28 00:00:00 OFFICE VISIT ESTAB PT LEVEL 4 STLMLC STLMLC [id number] [facility] 2023-02-14 00:00:00 2023-02-14 00:00:00 (TEL) STLMLC STLMLC [id number] [facility] 2023-02-09 00:00:00 2023-02-09 00:00:00 OFFICE VISIT ESTAB PT LEVEL 3 STL[facility]C STLMLC [id number] [facility] 2022-12-27 00:00:00 2022-12-27 00:00:00 OFFICE VISIT ESTAB PT LEVEL 4 [facility]C STL[facility]C [id number] [facility] 2022-11-25 00:00:00 2022-11-25 00:00:00 (TEL) STLMLC STLMLC [id number] [facility] 2022-10-25 00:00:00 2022-10-25 00:00:00 OFFICE VISIT ESTAB PT LEVEL 3 [facility]LMLC STLMLC [id number] [facility] 2022-08-25 00:00:00 2022-08-25 00:00:00 OFFICE VISIT ESTAB PT LEVEL 3 [facility]C STLMLC [id number] [facility] 2022-05-30 00:00:00 2022-05-30 00:00:00 OFFICE VISIT EST PT LEVEL 3 [facility]C STLMLC [id number] [facility] 2022-05-30 00:00:00 2022-05-30 00:00:00 SUB ANNUAL [facility] VISIT STLMLC STLMLC [id number] [facility] 2022-05-23 00:00:00 2022-05-23 00:00:00 (TEL) STLMLC STLMLC [id number] [facility] 2022-05-19 00:00:00 2022-05-19 00:00:00 OFFICE VISIT ESTAB PT LEVEL 3 STLMLC STLMLC [id number] [facility] 2022-05-18 00:00:00 2022-05-18 00:00:00 (TEL) STLMLC STLMLC [id number] [facility] 2022-05-12 00:00:00 2022-05-12 00:00:00 (TEL) STLMLC STLMLC [id number] [facility] 2022-04-28 00:00:00 2022-04-28 00:00:00 (TEL) STLMLC STLMLC [id number] [facility] 2022-04-20 08:13:51 2022-04-20 08:13:51 Outpatient SFA SFA [id number] Geoffrey Gunn 2022-03-01 00:00:00 2022-03-01 00:00:00 (TEL) STLMLC STLMLC [id number] [facility] 2022-02-28 00:00:00 2022-02-28 00:00:00 OFFICE VISIT EST PT LEVEL 3 STLMLC STLMLC [id number] [facility] 2022-01-17 00:00:00 2022-01-17 00:00:00 (TEL) STLMLC STLMLC [id number] [facility] 2021-10-19 00:00:00 2021-10-19 00:00:00 OFFICE VISIT EST PT LEVEL 3 STLMLC STLMLC [id number] [facility] 2021-07-05 00:00:00 2021-07-05 00:00:00 OFFICE VISIT ESTAB PT LEVEL 4 [facility]C STLMLC [id number] [facility] 2021-05-12 00:00:00 2021-05-12 00:00:00 OFFICE VISIT ESTAB PT LEVEL 4 [facility]C STL[facility]C [id number] [facility] 2021-04-29 00:00:00 2021-04-29 00:00:00 (TEL) STLMLC STLMLC [id number] [facility] 2021-03-30 00:00:00 2021-03-30 00:00:00 (TEL) STLMLC STLMLC [id number] [facility] 2021-03-29 00:00:00 2021-03-29 00:00:00 (TEL) STLMLC STLMLC [id number] [facility] 2021-03-26 00:00:00 2021-03-26 00:00:00 (TEL) STLMLC STLMLC [id number] [facility] 2021-03-22 00:00:00 2021-03-22 00:00:00 (TEL) STLMLC STLMLC [id number] [facility] 2021-02-09 00:00:00 2021-02-09 00:00:00 OFFICE VISIT ESTAB PT LEVEL 4 STLMLC STLMLC [id number] [facility] 2021-01-08 00:00:00 2021-01-08 00:00:00 (TEL) STLMLC STLMLC [id number] [facility] 2020-11-30 00:00:00 2020-11-30 00:00:00 (TEL) STLMLC STLMLC [id number] [facility] 2020-11-27 00:00:00 2020-11-27 00:00:00 (TEL) STLMLC STLMLC [id number] [facility] 2020-08-25 00:00:00 2020-08-25 00:00:00 Outpatient STLMLC STLMLC [id number] [facility] 2020-08-11 00:00:00 2020-08-11 00:00:00 Outpatient STLMLC STLMLC [id number] [facility] 2020-06-19 00:00:00 2020-06-19 00:00:00 Outpatient STLMLC STLMLC [id number] [facility] 2020-05-19 00:00:00 2020-05-19 00:00:00 Outpatient STLMLC STLMLC [id number] [facility] 2020-02-19 00:00:00 2020-02-19 00:00:00 Outpatient STLMLC STLMLC [id number] [facility] 2019-11-12 11:00:00 2019-11-12 11:00:00 Outpatient [facility] [id number] [facility] 2019-11-11 11:29:00 2019-11-11 11:29:00 Outpatient [facility] [id number] [facility] 2019-06-13 08:25:00 2019-06-13 08:25:00 Outpatient [facility] [id number] [facility] 2019-06-11 11:15:00 2019-06-11 11:15:00 Outpatient [facility] [id number] [facility] 2019-05-30 14:30:00 2019-05-30 14:30:00 Outpatient [facility] [id number] [facility] 2019-05-10 08:20:00 2019-05-10 08:20:00 Outpatient [facility] [id number] [facility] 2017-08-14 10:15:00 2017-08-14 10:15:00 Outpatient [facility] [id number] [facility] 2017-08-02 13:30:00 2017-08-02 13:30:00 Outpatient [facility] [id number] [facility] Results Test Description Test Time Test Comments Results Result Co mments Source CBC W/AUTO DIFF WITH [id number] 03:19:09* Test Item Value Reference Range Interpretation [...] = 1065) 0.0 /100 WBC'S See_Comment [Automated Nightingale[employer] ge] The system which generated this result [...] 0.00-0.10 ABS NUCLEATED RBCS (test code = 46803) 0.00 K/UL 0.00-0.11 COMPREHENSIVE METABOLIC [id number] 03:03:47* Test Item Value Reference Range Interpretation Comme nts GLUCOSE (test code = 2217) 100 MG/DL 70-99 H BUN (test code = 2207) 17 MG/DL 8-23 CREATININE (test code = 2214) 0.83 MG/DL 0.60-1.30 eGFR (2020 CKD-EPI) (test code = 79419) 78 ML/MIN/1.73 >60 CALC BUN/CREAT (test code = 2235) 20 RATIO 6-28 SODIUM (test code = 2231) 146 MEQ/L 133-146 POTASSIUM (test code = 2228) 4.1 MEQ/L 3.5-5.4 CHLORIDE (test code = 2215) 109 MEQ/L 95-107 H CARBON DIOXIDE (test code = 220) 26 MEQ/L 19-31 CALCIUM (test code = 2209) 9.4 MG/DL 8.5-10.5 PROTEIN, TOTAL (test code = 222) 6.7 G/DL 6.1-8.3 ALBUMIN (test code = 220) 4.2 G/DL 3.5-5.2 CALC GLOBULIN (test code = 2240) 2.5 G/DL 1.9-3.7 CALC A/G RATIO (test code = 2234) 1.7 RATIO 1.0-2.6 BILIRUBIN, TOTAL (test code = 2207) 0.7 MG/DL See_Comment [Automated me ssage] The system which generated this result transmitted reference range: <=1.2. The reference range was not used to interpret this result as normal/abnormal. ALKALINE PHOSPHATASE (test code = 2204) 103 U/L 40-140 AST (test code = 2218) 22 U/L 9-40 ALT (test code = 2219) 13 U/L 5-40
[2023-12-28] MEDS ORDERED: PANTOPRAZOLE 40 MG INJ ONE (05:22)
[2023-12-28] MEDS ORDERED: MAGNES/ALUMIN/SIMET 30ML UCUP ONE (05:22)
[2023-12-28] MEDS ORDERED: LIDOCAINE VISCOUS 2% 10ML ORAL SOLN ONE (05:23)
[2023-12-28] MEDS ORDERED: ASPIRIN 81 MG CHEWABLE TABLET ONE ×2 (05:23→08:40)
[2023-12-28] MEDS ORDERED: NA CHLORIDE 0.9% 500 ML ONE (05:23)
[2023-12-28 05:27] LABS: Absolute Lymphocytes (CBC) 1.9 K/uL (0.7-4.9); Absolute Monocytes 0.5 K/uL (0.1-1.3); Absolute Neutrophil 3.7 K/uL (1.8-8.0); Basophils % 0.3 % (0-1.3); Eosinophils % 0.5 % (0-4.4); Hematocrit 36.4 % (36.0-45.0); Hemoglobin 12.3 g/dL (12.0-15.0); Lymphocytes % 30.8 % (15.3-44.8); MCH 32.6 pg (27.0-35.0); MCHC 33.6 g/dL (32.0-36.0); MCV 96.8 fL (80-100); MPV 8.7 fL (7.6-11.3); Neutrophils % 60.4 % (41.7-73.7); Platelets 200 thou/uL (152-406); RBC Red Blood Cell Count 3.76 M/uL (3.86-4.86); Red Cell Distribution Width 12.8 % (12.1-15.2)
[2023-12-28 06:13] LABS: ALT/SGPT 71 U/L (13-56); Albumin 3.6 g/dL (3.4-5.0); Albumin/Globulin Ratio 1.1 (1.1-1.8); Alkaline Phosphatase 103 U/L (45-117); Anion Gap 7.9 mEq/L (5.0-15.0); BUN Blood Urea Nitrogen 28 mg/dL (7-18); Bicarbonate 27 mEq/L (21-32); Bilirubin Total 0.4 mg/dL (0.2-1.0); Globulin 3.4 g/dL (2.3-3.5); Glomerular Filtration Rate 76 ml/min (=/>90); Glucose Level 106 mg/dL (74-106); Lipase 34 U/L (13-75); NT PRO-BNP 140 pg/mL (<125); Sodium Level 142 mEq/L (136-145); Troponin High Sensitivity 7.8 pg/mL (<58.9)
[2023-12-28 06:14] LABS: AST/SGOT 32 U/L (15-37); Bilirubin Direct < 0.2 mg/dL (0-0.2); Bilirubin Indirect, Calculated 0.2 mg/dL (0.2-0.8); Magnesium 1.7 mg/dL (1.6-2.4); Potassium 3.9 mEq/L (3.5-5.1)
[2023-12-28 06:15] LABS: PT Prothrombin Time 9.8 SECONDS (9.4-12.5); Protime INR 0.87
[2023-12-28 06:20] LABS: D-Dimer 0.401 FEUug/mL (0-0.500)
--- NOTE | 2023-12-28 06:22 | EDPHYS ---
Physician Documentation [facility] Name: Korin Coon Age: 68 yrs Sex: Female : 1955 Arrival Date: 12/28/2023 Time: 04:44 Bed 18 Private MD: ED Physician Carmelo Martines HPI: 12/27 04:56 This 68 yrs old Female presents to ER via Unassigned with complaints of Chest oren Pain. 04:56 The patient or guardian reports chest pain that is located primarily in the substernal oren area. Onset: just prior to arrival. The pain does not radiate. Associated signs and symptoms: The patient has no apparent associated signs or symptoms. The chest pain is described as causing indigestion, a pressure. Duration: The patient or guardian reports a single episode, that is now resolved. Modifying factors: The symptoms are alleviated by nothing. the symptoms are aggravated by nothing. Severity of pain: At its worst the pain was mild moderate in the emergency department the pain has resolved and did so just prior to arrival. The patient has not experienced similar symptoms in the past. Historical: - Allergies: 04:58 No Known Allergies; jb4 - PMHx: 04:58 August's Esophagus (Vertigo); Depression; Hyperlipidemia; Vertigo; Hypertension; jb4 - PSHx: 04:58 Cholecystectomy; Ligation of fallopian tube; jb4 - Immunization history:: Adult Immunizations up to date. - Infectious Disease History:: Denies. - Family history:: not pertinent. - Social history:: Smoking status: Patient denies any tobacco usage or history of. ROS: 04:56 Constitutional: Negative for fever, chills, and weight loss, Eyes: Negative for injury, oren pain, redness, and discharge, ENT: Negative for injury, pain, and discharge, Neck: Negative for injury, pain, and swelling, Respiratory: Negative for shortness of breath, cough, wheezing, and pleuritic chest pain, Abdomen/GI: Negative for abdominal pain, nausea, vomiting, diarrhea, and constipation, Back: Negative for injury and pain, : Negative for injury, bleeding, discharge, and swelling, MS/Extremity: Negative for injury and deformity, Skin: Negative for injury, rash, and discoloration, Neuro: Negative for headache, weakness, numbness, tingling, and seizure, Psych: Negative for depression, anxiety, suicide ideation, homicidal ideation, and hallucinations, Allergy/Immunology: Negative for hives, rash, and allergies, Endocrine: Negative for neck swelling, polydipsia, polyuria, polyphagia, and marked weight changes, Hematologic/Lymphatic: Negative for swollen nodes, abnormal bleeding, and unusual bruising, 04:56 Cardiovascular: Positive for chest pain, of the chest, Exam: 04:56 Constitutional: This is a well developed, well nourished patient who is awake, alert, oren and in no acute distress. Head/Face: Normocephalic, atraumatic. Eyes: Pupils equal round and reactive to light, extra-ocular motions intact. Lids and lashes normal. Conjunctiva and sclera are non-icteric and not injected. Cornea within normal limits. Periorbital areas with no swelling, redness, or edema. ENT: Nares patent. No nasal discharge, no septal abnormalities noted. Tympanic membranes are normal and external auditory canals are clear. Oropharynx with no redness, swelling, or masses, exudates, or evidence of obstruction, uvula midline. Mucous membranes moist. Neck: Trachea midline, no thyromegaly or masses palpated, and no cervical lymphadenopathy. Supple, full range of motion without nuchal rigidity, or vertebral point tenderness. No Meningismus. Chest/axilla: Normal chest wall appearance and motion. Nontender with no deformity. No lesions are appreciated. Cardiovascular: Regular rate and rhythm with a normal S1 and S2. No gallops, murmurs, or rubs. Normal PMI, no JVD. No pulse deficits. Respiratory: Lungs have equal breath sounds bilaterally, clear to auscultation and percussion. No rales, rhonchi or wheezes noted. No increased work of breathing, no retractions or nasal flaring. Abdomen/GI: Soft, non-tender, with normal bowel sounds. No distension or tympany. No guarding or rebound. No evidence of tenderness throughout. Back: No spinal tenderness. No costovertebral tenderness. Full range of motion. Female : Normal external genitalia. Skin: Warm, dry with normal turgor. Normal color with no rashes, no lesions, and no evidence of cellulitis. MS/ Extremity: Pulses equal, no cyanosis. Neurovascular intact. Full, normal range of motion. Neuro: Awake and alert, GCS 15, oriented to person, place, time, and situation. Cranial nerves II-XII grossly intact. Motor strength 5/5 in all extremities. Sensory grossly intact. Cerebellar exam normal. Normal gait. Psych: Awake, alert, with orientation to person, place and time. Behavior, mood, and affect are within normal limits. 04:56 Musculoskeletal/extremity: DVT Exam: No signs of deep vein thrombosis. no pain, no swelling, no tenderness, negative Homans' sign noted on exam, no appreciated bluish discoloration, no erythema, no increased warmth, 05:06 ECG was reviewed by the Attending Physician. [facility] Vital Signs: 04:57 BP 155 / 77; Pulse 86; Resp 16; Temp 98.4(TE); Pulse Ox 100% on R/A; Weight 79.38 kg; jb4 Height 5 ft. 6 in. ; Pain 2/10; 06:00 BP 121 / 72; Pulse 82; Resp 17; Pulse Ox 98% ; cp4 07:30 BP 125 / 77; Pulse 80; Resp 16; Pulse Ox 98% on R/A; rs5 07:59 BP 128 / 79; Pulse 77; Resp 17; Pulse Ox 98% on R/A; rs5 04:57 Body Mass Index 28.25 (79.38 kg, 167.64 cm) jb4 04:57 Pain Scale: Adult jb4 MDM: 04:48 Patient medically screened. oren 04:58 Differential diagnosis: abnormal EKG, acute myocardial infarction, acute pericarditis, oren anxiety, coronary artery disease chest wall pain, Cholelithiasis costochondritis, esophagitis, gastritis, hiatal hernia, pancreatitis, peptic ulcer disease, pericarditis, pneumonia, pulmonary embolus, stable angina, thoracic aortic disection, unstable angina. HEART Score: History: Slightly Suspicious (0), ECG: Non specific repolarization disturbance / LBTB / PM (1), Age: > or = 65 years (2), Risk Factors: > or = 3 Risk factors for atherosclerotic disease (2), [Hypercholesterolemia] [Hypertension] [+ Family HX] [Obesity] Troponin: < or = 1 x Normal Limit (0). The patient was given aspirin in the Emergency Department. DILLON Risk Score: 1 - patient's age is greater or equal to 65 years, 1 - Three or more CAD risk factors, TOTAL SCORE = 2. Data reviewed: vital signs, nurses notes, lab test result(s), EKG, radiologic studies, plain films. Consideration of Admission/Observation Patient was admitted/placed on observation. Escalation of care including admission/observation considered. I considered the following discharge prescriptions or medication management in the emergency department Medications were administered in the Emergency Department. See MAR. Independent interpretation of the following test(s) in the Emergency Department EKG: See my EKG interpretation above. Test considered but Not performed: Ultrasound no 2 d echo. Care significantly affected by the following chronic conditions: Hypertension, Obesity, barretts, depression, vertigo. 12/27 04:49 Order name: Basic Metabolic Panel; Complete Time: 06:20 [facility] 12/27 04:49 Order name: CBC with Diff; Complete Time: 06:10 [facility] 12/27 04:49 Order name: LFT's; Complete Time: 06:20 [facility] 12/27 04:49 Order name: Magnesium; Complete Time: 06:20 [facility] 12/27 04:49 Order name: NT PRO-BNP; Complete Time: 06:20 [facility] 12/27 04:49 Order name: PT-INR; Complete Time: 06:26 [facility] 12/27 04:49 Order name: Troponin HS; Complete Time: 06:20 [facility] 12/27 04:49 Order name: Lipase; Complete Time: 06:20 [facility] 12/27 04:49 Order name: Urinalysis w/ reflexes 12/27 05:32 Order name: D-Dimer; Complete Time: 06:26 EDPR 12/27 07:11 Order name: Troponin High Sensitivity [facility] 12/27 07:11 Order name: Troponin High Sensitivity [facility] 12/27 07:11 Order name: Troponin High Sensitivity [facility] 12/27 04:49 Order name: XRAY Chest (1 view) 12/27 04:49 Order name: Cardiac monitoring; Complete Time: 05:03 12/27 04:49 Order name: EKG - Nurse/Tech; Complete Time: 05:03 [facility] 12/27 04:49 Order name: IV Saline Lock; Complete Time: 05:15 [facility] 12/27 04:49 Order name: Labs collected and sent; Complete Time: 05:15 [facility] 12/27 04:49 Order name: O2 Per Protocol; Complete Time: 05:04 12/27 04:49 Order name: O2 Sat Monitoring; Complete Time: 05:04 oren EC:06 Rate is 88 beats/min. Rhythm is regular. QRS [place] is Normal. MA interval is normal. QRS oren interval is normal. QT interval is normal. No Q waves. T waves are Normal. No ST changes noted. Clinical impression: NSR w/ Non-specific ST/T Changes and No evidence of ischemia. Interpreted by me. Reviewed by me. Administered Medications: 05:26 Drug: NS 0.9% IV 500 ml IV at bolus once Route: IV; Rate: bolus; Site: right cp4 antecubital; 06:42 Follow up: Response: No adverse reaction; IV Status: Completed infusion cp4 05:26 Drug: GI Cocktail without - (Maalox PO 30 ml, Lidocaine Mucous Membrane 2 % 15 cp4 ml) PO once Route: PO; 05:46 Follow up: Response: No adverse reaction cp4 05:26 Drug: Pantoprazole IVP 40 mg IVP once Route: IVP; Site: right antecubital; cp4 05:46 Follow up: Response: No adverse reaction cp4 05:26 Drug: Aspirin PO Chewable Tablet 162 mg PO once Route: PO; cp4 05:46 Follow up: Response: No adverse reaction cp4 06:41 Drug: Enoxaparin Sub-Q 1 mg/kg Sub-Q once Route: Sub-Q; Site: abdomen; cp4 06:54 Follow up: Response: No adverse reaction cp4 06:42 Drug: Metoprolol PO 25 mg PO once Route: PO; cp4 06:54 Follow up: Response: No adverse reaction cp4 08:39 Drug: Aspirin PO 81 mg PO once Route: PO; rs5 Disposition Summary: 12/28/23 06:22 Hospitalization Ordered Notes: Hospitalization Status: Observation oren Provider: Nathanael Gomes cha Location: Telemetry/MedSurg (observation) oren Condition: Fair oren Problem: new oren Symptoms: have improved oren Bed/Room Type: Standard [facility] Room Assignment: 212(12/28/23 08:09) ja1 Diagnosis - Chest pain, unspecified oren - Essential (primary) hypertension oren - August's esophagus without dysplasia oren - Angina pectoris, unspecified oren Forms: - Medication Reconciliation Form oren - SBAR form oren - Leadership Thank You Letter oren Signatures: Dispatcher [employer] EDMS Carmelo Martines MD MD cha Attema, Lee, POLYMERIZATION ENGINEER-C POLYMERIZATION ENGINEER-Cla1 Carloz Echeverria, RN RN jb4 Jorje Miller, RN RN ja1 Abel Romo, RN RN rs5 Judy Gomez cp4 Génesis Miller [facility] Corrections: (The following items were deleted from the chart) 04:49 04:49 BASIC METABOLIC PANEL+C.LAB.BRZ ordered. EDMS EDMS 04:49 04:49 CBC+H.LAB.BRZ ordered. EDMS EDMS 04:49 04:49 HEPATIC FUNCTION+C.LAB.BRZ ordered. EDMS EDMS 04:49 04:49 MAGNESIUM+C.LAB.BRZ ordered. EDMS EDMS 04:49 04:49 PROBNP+C.LAB.BRZ ordered. EDMS EDMS 04:49 04:49 PROTIME (+INR)+COAG.LAB.BRZ ordered. EDMS EDMS 04:49 04:49 Troponin High Sensitivity+C.LAB.BRZ ordered. EDMS EDMS 04:49 04:49 LIPASE+C.LAB.BRZ ordered. EDMS EDMS 04:49 04:49 Urinalysis+U.LAB.BRZ ordered. EDMS EDMS 04:49 04:49 Chest Single View+RAD.RAD.BRZ ordered. EDMS EDMS 05:31 04:57 D-DIMER+COAG.LAB.BRZ ordered. EDMS EDMS 07:40 06:22 oren [facility] 07:52 07:[address] [place] [address] 08:09 07:52 [place] [id number]
--- NOTE | 2023-12-28 06:22 | ER ---
Nurse's Notes [facility] Name: Korin Coon Age: 68 yrs Sex: Female : 1955 Arrival Date: 12/28/2023 Time: 04:44 Bed 18 Private MD: Diagnosis: Chest pain, unspecified;Essential (primary) hypertension;August's esophagus without dysplasia;Angina pectoris, unspecified Presentation: 12/27 04:57 Chief complaint: Patient states: I had a pressure like pain in my chest after midnight. jb4 Now it is a 2/10. I took 81mg of ASA prior to coming. Coronavirus screen: At this time, the client does not indicate any symptoms associated with coronavirus-19. Ebola Screen: No symptoms or risks identified at this time. Initial Sepsis Screen: Does the patient meet any 2 criteria? No. Patient's initial sepsis screen is negative. Does the patient have a suspected source of infection? No. Patient's initial sepsis screen is negative. Risk Assessment: Do you want to hurt yourself or someone else? Patient reports no desire to harm self or others. Onset of symptoms was December 28, 2023. Transition of care: patient was not received from another setting of care. 04:57 Method Of Arrival: Ambulatory jb4 04:57 Acuity: MAYCOL 2 jb4 Historical: - Allergies: 04:58 No Known Allergies; jb4 - PMHx: 04:58 August's Esophagus (Vertigo); Depression; Hyperlipidemia; Vertigo; Hypertension; jb4 - PSHx: 04:58 Cholecystectomy; Ligation of fallopian tube; jb4 - Immunization history:: Adult Immunizations up to date. - Infectious Disease History:: Denies. - Family history:: not pertinent. - Social history:: Smoking status: Patient denies any tobacco usage or history of. Screenin:16 [facility] ED Fall Risk Assessment (Adult) History of falling in the last 3 months, cp4 including since admission No falls in past 3 months (0 pts) Confusion or Disorientation No (0 pts) Intoxicated or Sedated No (0 pts) Impaired Gait No (0 pts) Mobility Assist Device Used No (0 pt) Altered Elimination No (0 pt) Score/Fall Risk Level 0 - 2 = Low Risk Oriented to surroundings, Maintained a safe environment, Assessed \T\ reinforced patient's understanding of fall precautions, Hourly rounding (assess needs \T\ fall precautionary measures) done. Abuse screen: Denies threats or abuse. Nutritional screening: No deficits noted. Tuberculosis screening: No symptoms or risk factors identified. Assessment: 05:16 General: Appears in no apparent distress. uncomfortable, Behavior is calm, cooperative, cp4 appropriate for age. Pain: Complains of pain in chest Pain does not radiate. Pain currently is 2 out of 10 on a pain scale. Pain began 2 hours ago. Neuro: Level of Consciousness is awake, alert, obeys commands, Oriented to person, place, time, situation. Cardiovascular: Reports chest pain, Rhythm is sinus rhythm. Respiratory: Airway is patent Respiratory effort is even, unlabored. GI: No signs and/or symptoms were reported involving the gastrointestinal system. : No signs and/or symptoms were reported regarding the genitourinary system. EENT: No signs and/or symptoms were reported regarding the EENT system. Derm: No signs and/or symptoms reported regarding the dermatologic system. Musculoskeletal: No signs and/or symptoms reported regarding the musculoskeletal system. 06:15 Reassessment: Patient appears in no apparent distress at this time. Patient and/or cp4 family updated on plan of care and expected duration. Pain level reassessed. Patient is alert, oriented x 3, equal unlabored respirations, skin warm/dry/pink. 07:01 Reassessment: Patient and/or family updated on plan of care and expected duration. Pain rs5 level reassessed. Patient is alert, oriented x 3, equal unlabored respirations, skin warm/dry/pink. Patient denies pain at this time. Patient states feeling better. Cardiovascular: Denies chest pain, Patient's skin is warm and dry. Rhythm is sinus rhythm. Respiratory: Airway is patent Respiratory effort is even, unlabored, Respiratory pattern is regular, symmetrical. 07:58 Reassessment: Patient and/or family updated on plan of care and expected duration. Pain rs5 level reassessed. Patient is alert, oriented x 3, equal unlabored respirations, skin warm/dry/pink. Vital Signs: 04:57 BP 155 / 77; Pulse 86; Resp 16; Temp 98.4(TE); Pulse Ox 100% on R/A; Weight 79.38 kg; jb4 Height 5 ft. 6 in. ; Pain 2/10; 06:00 BP 121 / 72; Pulse 82; Resp 17; Pulse Ox 98% ; cp4 07:30 BP 125 / 77; Pulse 80; Resp 16; Pulse Ox 98% on R/A; rs5 07:59 BP 128 / 79; Pulse 77; Resp 17; Pulse Ox 98% on R/A; rs5 04:57 Body Mass Index 28.25 (79.38 kg, 167.64 cm) jb4 04:57 Pain Scale: Adult jb4 ED Course: 04:45 Patient arrived in ED. jj6 04:48 Carmelo Martines MD is Attending Physician. oren 04:58 Triage completed. jb4 04:58 Arm band placed on right wrist. EKG completed in triage. Results shown to MD. jb4 05:03 Judy Gomez is Primary Nurse. cp4 05:15 Lipase Sent. cp4 05:15 Basic Metabolic Panel Sent. cp4 05:15 CBC with Diff Sent. cp4 05:15 LFT's Sent. cp4 05:15 Magnesium Sent. cp4 05:15 Troponin HS Sent. cp4 05:15 PT-INR Sent. cp4 05:15 NT PRO-BNP Sent. cp4 05:16 Bed in low position. Call light in reach. Side rails up X2. Client placed on continuous cp4 cardiac and pulse oximetry monitoring. NIBP monitoring applied. residential monitor on. Pulse ox on. NIBP on. 05:18 No provider procedures requiring assistance completed. Initial lab(s) drawn, by mi, cp4 sent to lab. EKG done, by ED staff, reviewed by Carmelo Martines MD. Inserted saline lock: 20 gauge in right antecubital area, using aseptic technique. Blood collected. Flushed with 10 mL NS. Patient maintains SpO2 saturation greater than 95% on room air. 05:42 XRAY Chest (1 view) In Process Unspecified. EDMS 06:21 Nathanael Gomes MD is Hospitalizing Provider. oren 07:57 Patient admitted, IV remains in place. rs5 Administered Medications: 05:26 Drug: NS 0.9% IV 500 ml IV at bolus once Route: IV; Rate: bolus; Site: right cp4 antecubital; 06:42 Follow up: Response: No adverse reaction; IV Status: Completed infusion cp4 05:26 Drug: GI Cocktail without - (Maalox PO 30 ml, Lidocaine Mucous Membrane 2 % 15 cp4 ml) PO once Route: PO; 05:46 Follow up: Response: No adverse reaction cp4 05:26 Drug: Pantoprazole IVP 40 mg IVP once Route: IVP; Site: right antecubital; cp4 05:46 Follow up: Response: No adverse reaction cp4 05:26 Drug: Aspirin PO Chewable Tablet 162 mg PO once Route: PO; cp4 05:46 Follow up: Response: No adverse reaction cp4 06:41 Drug: Enoxaparin Sub-Q 1 mg/kg Sub-Q once Route: Sub-Q; Site: abdomen; cp4 06:54 Follow up: Response: No adverse reaction cp4 06:42 Drug: Metoprolol PO 25 mg PO once Route: PO; cp4 06:54 Follow up: Response: No adverse reaction cp4 08:39 Drug: Aspirin PO 81 mg PO once Route: PO; rs5 Medication: 05:16 VIS not applicable for this client. cp4 Outcome: 06:22 Decision to Hospitalize by Provider. oren 07:57 Admitted to ER Hold. Please see [facility] for further documentation. rs5 07:57 Condition: stable 07:57 Instructed on the need for admit, Demonstrated understanding of instructions, 09:05 Patient left the ED. rs5 Signatures: Dispatcher [employer] EDMS Carmelo Martines MD MD cha Bryson, James, RN RN jb4 Annie Salamanca jj6 Abel Romo RN RN rs5 Judy Gomez cp4 Corrections: (The following items were deleted from the chart) 05:31 05:15 D-DIMER+COAG.LAB.BRZ drawn and sent. cp4 EDMS 05:32 04:57 Resp 16bpm; 79.38 kg; Height 5 ft. 6 in.; BMI: 28.2; Pain 2/10, Adult; jb4 jb4
[2023-12-28] MEDS ORDERED: ENOXAPARIN 80 MG/0.8 ML SQ ONE (06:33)
[2023-12-28] MEDS ORDERED: METOPROLOL TAR 25 MG TAB ONE (06:33)
[2023-12-28 06:37] LABS: Specific Gravity 1.021 (1.005-1.030); Sqamous Epithelial <5 /HPF (None Seen); Urine Bacteria <20 /HPF (<20); Urine Bilirubin NEGATIVE (Negative); Urine Blood Trace (Negative); Urine Clarity Turbid (Clear); Urine Color Light-Yellow (Yellow); Urine Culture Reflex Order NOT NEEDED; Urine Glucose NEGATIVE (Negative); Urine Ketones NEGATIVE (Negative); Urine Microscopic Reflex YN ORDER UMIC; Urine Mucus Slight /HPF (None Seen); Urine Nitrite 2+ (Negative); Urine Protein TRACE (Negative); Urine RBC <5 /HPF (None Seen); Urine Urobilinogen Normal (Normal); Urine pH 5.5 (5.0-7.0)
[2023-12-28] MEDS ORDERED: MORPHINE 2 MG/ML SYR IV PRN (08:38)
--- NOTE | 2023-12-28 08:46 | P.CNS ---
Date of Consult: 12/28/23 Chief Complaint: Chest pain History of Present Illness: Patient with PMH of HTN, HLD presented with chest pain that woke her up from sleep, felt like pressure, radiated to her back, lasted for 30 minutes, no other symptoms, no SOB, no CHAPMAN, no palpitations, no syncope. Allergies No Known Allergies Allergy (Verified 01/02/17 22:22) Home medications list reviewed: Yes Home Medications: Losartan Potassium 100 mg PO DAILY 12/09/15 Montelukast Sodium [Singulair] 10 mg PO DAILY 12/09/15 Pravastatin [Pravachol*] 40 mg PO BEDTIME 12/09/15 Amlodipine [Norvasc*] 5 mg PO DAILY #30 tab 12/10/15 Citalopram Hydrobromide [Citalopram HBr] 10 mg PO DAILY 01/02/17 Buspirone HCl 7.5 mg PO BID 02/20/22 Cholestyramine (with Sugar) [Cholestyramine Packet] 2 gm PO DAILY 02/20/22 Pantoprazole [Protonix Tab*] 40 mg PO DAILY 02/20/22 - Past Medical/Surgical History Diabetic: No -: Hypertension -: Vertigo -: Hyperlipidemia -: ADD -: Allergic rhinitis -: History of migraines -: History of IV drug use, 20 years ago -: Barretts esophagus -: Tubal ligation -: Gallbladder removal Psychosocial/ Personal History: Patient is currently . She has 3 children. 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 - Family History Mother Medical History: Hypertension, Stroke Father Medical History: Hypertension, Diabetes, Cancer Notes: esophageal cancer Brother Medical History: Hypertension Sister Medical History: Hypertension, Diabetes Notes: pre-diabetic - Social History Smoking Status: Former smoker Alcohol use: No CD- Drugs: No Caffeine use: Yes Review of Systems 10-point ROS is otherwise unremarkable Physical Examination General: Alert, In no apparent distress HEENT: Atraumatic, PERRLA, Mucous membr. moist/pink, EOMI, Sclerae nonicteric Neck: Supple, 2+ carotid pulse no bruit, No LAD, Without JVD or thyroid abnormality Respiratory: Clear to auscultation bilaterally, Normal air movement Cardiovascular: Regular rate/rhythm, Normal S1 S2 Gastrointestinal: Normal bowel sounds, No tenderness Musculoskeletal: No tenderness Integumentary: No rashes Neurological: Normal gait, Normal speech, Normal tone, Normal affect Lymphatics: No axilla or inguinal lymphadenopathy Laboratory Data (last 24 hrs) 12/28/23 12/28/23 12/28/23 05:12 05:12 05:12 WBC 6.10 Hgb 12.3 Hct 36.4 Plt Count 200 PT 9.8 INR 0.87 Sodium 142 Potassium 3.9 BUN 28 H Creatinine 0.84 Glucose 106 Magnesium 1.7 Total Bilirubin 0.4 AST 32 ALT 71 H Alkaline Phosphatase 103 Lipase 34 - Problems (1) Chest pain Current Visit: Yes Status: Acute Plan: concern for unstable angina plan for coronary angiogram. ASA 81 mg daily continue statins (2) Hyperlipidemia Onset Date: 12/10/15 Current Visit: No Status: Chronic Plan: continue Pravastatin Qualifiers: (3) Hypertension Onset Date: 12/10/15 Current Visit: No Status: Chronic Plan: continue patient BP home medications
[2023-12-28] MEDS: ENOXAPARIN 40 MG/0.4 ML SQ SCH (09:00)
[2023-12-28] MEDS: ASPIRIN EC 81 MG TAB PO SCH (09:00)
--- NOTE | 2023-12-28 09:32 | P.HP ---
Certification for Inpatient Patient admitted to: Observation With expected LOS: <2 Midnights Patient will require the following post-hospital care: None Practitioner: I am a practitioner with admitting privileges, knowledge of patient current condition, hospital course, and medical plan of care. 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 She reports that she was woken from her sleep at around 3 AM with pressure-like chest pain radiating to her back with associated sweating/diaphoresis. Also had some tingling in her left arm. 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 Patient was evaluated in the emergency department initial assessment troponin within normal limits at 7.8, other labs unremarkable, D-dimer negative. Will admit for cardiology evaluation/chest pain. Allergies No Known Allergies Allergy (Verified 01/02/17 22:22) Home Medications: Losartan Potassium 100 mg PO DAILY 12/09/15 Montelukast Sodium [Singulair] 10 mg PO DAILY 12/09/15 Pravastatin [Pravachol*] 40 mg PO BEDTIME 12/09/15 Amlodipine [Norvasc*] 5 mg PO DAILY #30 tab 12/10/15 Citalopram Hydrobromide [Citalopram HBr] 10 mg PO DAILY 01/02/17 Buspirone HCl 7.5 mg PO BID 02/20/22 Cholestyramine (with Sugar) [Cholestyramine Packet] 2 gm PO DAILY 02/20/22 Pantoprazole [Protonix Tab*] 40 mg PO DAILY 02/20/22 - Past Medical/Surgical History Has patient received pneumonia vaccine in the past: Yes Diabetic: No -: Hypertension -: Vertigo -: Hyperlipidemia -: ADD -: Allergic rhinitis -: History of migraines -: History of IV drug use, 20 years ago -: Barretts esophagus -: Tubal ligation -: Gallbladder removal Psychosocial/ Personal History: Patient is currently . She has 3 children. 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 - Family History Mother -: Hypertension, Stroke Father -: Hypertension, Diabetes, Cancer Notes: esophageal cancer Brother -: Hypertension Sister -: Hypertension, Diabetes Notes: pre-diabetic - Social History Alcohol use: No CD- Drugs: No Caffeine use: Yes Review of Systems 10-point ROS is otherwise unremarkable Cardiovascular: Chest Pain Physical Examination - Vital Signs Temperature: 98.0 F Blood Pressure: 141/72 Pulse: 75 Respirations: 16 Pulse Ox (%): 96 - Physical Exam General: Alert, In no apparent distress, Oriented x3 HEENT: Atraumatic, PERRLA, EOMI Neck: Supple, 2+ carotid pulse no bruit, No LAD Respiratory: Clear to auscultation bilaterally, Normal air movement Cardiovascular: Regular rate/rhythm, Normal S1 S2 Gastrointestinal: Normal bowel sounds, No tenderness Musculoskeletal: No tenderness Integumentary: No rashes Neurological: Normal speech, Normal strength at 5/5 x4 extr, Normal tone, Normal affect - Studies Laboratory Data (last 24 hrs) 12/28/23 12/28/23 12/28/23 05:12 05:12 05:12 WBC 6.10 Hgb 12.3 Hct 36.4 Plt Count 200 PT 9.8 INR 0.87 Sodium 142 Potassium 3.9 BUN 28 H Creatinine 0.84 Glucose 106 Magnesium 1.7 Total Bilirubin 0.4 AST 32 ALT 71 H Alkaline Phosphatase 103 Lipase 34 Assessment and Plan - Plan Assessment: Chest pain rule out ACS hypertension Hyperlipidemia History of August's esophagus Plan: Chest pain rule out ACS Seen by cardiology recommends coronary angiogram which will be performed today Continue aspirin, statin Await results of coronary angiogram hypertension Hyperlipidemia Continue home medications once verified History of August's esophagus Reports very recent EGD, no changes Continue Protonix Denies reflux symptoms DVT PPX: Lovenox Code status: Full Discharge Plan: Home Plan to discharge in: 24 Hours - Advance Directives Does patient have a Living Will: No Does patient have a Durable POA for Healthcare: No - Code Status/Comfort Care Code Status Assessed: Yes (Full code) Critical Care: No Time Spent Managing Pts Care (In Minutes): 57
[2023-12-28 09:36] VITALS: BMI 28.1
--- NOTE | 2023-12-28 09:54 | RAD REPORT ---
EXAM DESCRIPTION: Chest Single View CLINICAL HISTORY: CHEST PAIN COMPARISON: 10/14/2023 FINDINGS: 1 view(s) of the chest. Tubes and lines: Leads overlie the chest. Cardiomediastinal silhouette: Atherosclerotic calcification of thoracic aorta. Heart is not enlarged. Lungs: No consolidation, pneumothorax, or pleural effusion. Bones: No acute osseous abnormality. Degenerative change of the spine and shoulders. Upper abdomen: No abnormality identified. IMPRESSION: 1. No acute pulmonary process identified. Electronically signed by: Benjie Welch DO 12/28/2023 05:50 AM CDT RP [id number] Due to temporary technical issues with the PACS/Fluency reporting system, reports are being signed by the in house radiologist without review as a courtesy to ensure prompt reporting. The interpreting r adiologist is fully responsible for the content of the report.
[2023-12-28] MEDS ORDERED: LIDOCAINE 1% 20 ML MDV ONE (10:58)
[2023-12-28] MEDS ORDERED: HEPARIN 10,000 UNIT/10 ML VIAL IV ONE (10:58)
[2023-12-28] MEDS ORDERED: HEPA 1000U/500MLS 2,000 UNIT/1,000 ML BAG IV ONE (10:58)
[2023-12-28] MEDS ORDERED: FENTANYL CITR 100 MCG/2 ML ONE (10:59)
[2023-12-28] MEDS ORDERED: CLOPIDOGREL 75 MG TABLET ONE (10:59)
[2023-12-28] MEDS ORDERED: ATROPINE SULF 1 MG/10 ML SYR IV ONE (10:59)
[2023-12-28] MEDS ORDERED: HEPARIN 5000 UNIT/ML 1 ML VIAL ONE (10:59)
[2023-12-28] MEDS ORDERED: MIDAZOLAM HCL 2 MG/2 ML INJ ONE (10:59)
[2023-12-28] MEDS ORDERED: ASPIRIN 325 MG TAB ONE (11:00)
[2023-12-28] MEDS ORDERED: TICAGRELOR 90 MG TABLET PO ONE (11:00)
[2023-12-28] MEDS ORDERED: VERAPAMIL HCL 10 MG/4 ML VIAL IV ONE (12:00)
--- NOTE | 2023-12-28 13:00 | OP ---
Date of Procedure: 12/28/2023 Surgeon: Mick Knowles Procedures Performed: 1.Left heart catheterization. 2.Selective coronary angiogram. Indication For Procedure: Unstable angina. Complications: None. Estimated Blood Loss: Less than 50 cc. Access: Right radial, closed by TR band. Sedation Time: 20 minutes with 1 of Versed and 50 of fentanyl. Description Of Procedure: After risks, benefits, and alternatives were explained to the patient, the patient agreed to proceed with the procedure and signed informed consent. The patient was brought [facility] to the labor commissioner, prepped and draped in sterile fashion. Time-out was performed. Sedation was ad ministered. Next, right radial access was obtained. [place] 4 catheter was advanced over J-wire to th e LV cavity. LVEDP was obtained. Pullback did not show any gradient. Same catheter was used for se lective angiogram of the left and right coronary systems. At the end of the procedure, catheter was removed. The J-wire sheath was removed. TR band was applied. The patient was moved back to [facility] in stable condition. Findings: 1.Left main, normal. 2.LAD, proximal mild luminal irregularities followed by mid 40% disease at an origin of large diagon al that got proximal 50% disease, then distal mild luminal irregularities. 3.Diagonal, large proximal 40% to 50% percent disease, then mild luminal irregularities. 4.Left circ, mild luminal irregularities. 5.RCA, large, dominant, mild luminal irregularities. 6.LVEDP is 12 mmHg. Assessment And Plan: Mild to moderate mid LAD and proximal diagonal disease. Plan will be to continue aggressive medical treatment for CAD. ALEC/JANA Voice ID: [id number] Report ID: [id number]
[2023-12-28 13:46] VITALS: O2SAT 97
[2023-12-28] MEDS: ATORVASTATIN 10 MG TAB PO SCH (20:23)
[2023-12-28] MEDS: ALPRAZOLAM 0.25 MG TABLET PO PRN (20:23)
[2023-12-29 04:42] LABS: Absolute Eosinophils 0.1 K/uL (0-0.5); Absolute Monocytes 0.5 K/uL (0.1-1.3); Absolute Neutrophil 2.5 K/uL (1.8-8.0); Basophils % 0.3 % (0-1.3); Eosinophils % 1.1 % (0-4.4); Hematocrit 33.3 % (36.0-45.0); Hemoglobin 11.6 g/dL (12.0-15.0); MCH 33.1 pg (27.0-35.0); MCHC 34.7 g/dL (32.0-36.0); MCV 95.4 fL (80-100); MPV 8.4 fL (7.6-11.3); Neutrophils % 48.6 % (41.7-73.7); Nucleated Red Blood Cells % 0.2 % (0-0); Platelets 183 thou/uL (152-406); RBC Red Blood Cell Count 3.49 M/uL (3.86-4.86); Red Cell Distribution Width 12.5 % (12.1-15.2)
[2023-12-29 04:55] LABS: Anion Gap 5.4 mEq/L (5.0-15.0); Potassium 4.4 mEq/L (3.5-5.1)
[2023-12-29 08:28] VITALS: BP 103/56; TEMP 97.9
--- NOTE | 2023-12-29 14:42 | EKG ---
Test Date: 2023-12-28 Test Time: 04:59:29 [employer] Technician: KATELYN MEASUREMENT RESULTS: Intervals: Rate: 88 ID: [id number] QRSD: 120 QT: 396 QTc: 479 [place]: P: 65 ID: [id number] QRS: -44 T: 47 INTERPRETIVE STATEMENTS: Normal sinus rhythm Left axis deviation Right bundle branch block Possible Lateral infarct, age undetermined Abnormal ECG Compared to ECG 12/28/2023 04:58:41 Left-axis deviation now present Left anterior fascicular block no longer present Bifascicular block no longer present Left ventricular hypertrophy no longer present Myocardial infarct finding still present Electronically Signed On 12-29-23 14:39:55 CDT by Mick Knowles
--- NOTE | 2023-12-29 14:42 | EKG ---
Test Date: 2023-12-28 Test Time: 04:58:41 [employer] Clearing Agent: KATELYN MEASUREMENT RESULTS: Intervals: Rate: 83 LA: 166 QRSD: 120 QT: 394 QTc: 462 [place]: P: 62 LA: 166 QRS: -47 T: 20 INTERPRETIVE STATEMENTS: Normal sinus rhythm Right bundle branch block Left anterior fascicular block Bifascicular block Minimal voltage criteria for LVH, may be normal variant Possible Lateral infarct, age undetermined Abnormal ECG Compared to ECG 10/14/2023 09:12:12 Left ventricular hypertrophy now present Myocardial infarct finding now present Bifascicular block still present Electronically Signed On 12-29-23 14:39:58 CDT by Mick Knowles
--- NOTE | 2023-12-29 15:00 | P.DS ---
Admission Date: 12/28/23 Discharge Date: 12/29/23 Disposition: ROUTINE DISCHARGE Discharge Condition: GOOD Reason for Admission: Chest pain Consultations: CardiologyDr. 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 She reports that she was woken from her sleep at around 3 AM with pressure-like chest pain radiating to her back with associated sweating/diaphoresis. Also had some tingling in her left arm. 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 Patient was evaluated in the emergency department initial assessment troponin within normal limits at 7.8, other labs unremarkable, D-dimer negative. Will admit for cardiology evaluation/chest pain. Hospital Course: Assessment: Chest pain rule out ACS hypertension Hyperlipidemia History of August's esophagus Patient was admitted to the hospital for chest pain. She has had multiple st ress test including 1 relatively recently. Cardiology recommended coronary angiogram which was completed on 12/27 with the following findings: Findings: 1. Left main, normal. 2. LAD, proximal mild luminal irregularities followed by mid 40% disease at an origin of large diagonal that got proximal 50% disease, then distal mild luminal irregularities. 3. Diagonal, large proximal 40% to 50% percent disease, then mild luminal irregularities. 4. Left circ, mild luminal irregularities. 5. RCA, large, dominant, mild luminal irregularities. 6. LVEDP is 12 mmHg. Plan will be to continue aggressive medical treatment for CAD. Please continue your home medications as previously prescribed Please begin taking baby aspirin 81 mg daily Follow-up with your primary care doctor and cardiology in 1 to 2 weeks. Vital Signs/Physical Exam: Temp Pulse Resp BP Pulse Ox 97.9 F 72 16 103/56 L 98 12/29/23 08:00 12/29/23 08:00 12/29/23 08:00 12/29/23 08:00 12/29/23 08:00 General: Alert, In no apparent distress, Oriented x3 HEENT: Atraumatic, PERRLA, EOMI Neck: Supple, JVD not distended Respiratory: Clear to auscultation bilaterally, Normal air movement Cardiovascular: Regular rate/rhythm, Normal S1 S2 Gastrointestinal: Normal bowel sounds, No tenderness Musculoskeletal: No tenderness Integumentary: No rashes Neurological: Normal speech, Normal tone, Normal affect Laboratory Data at Discharge: WBC 5.10 thou/uL (4.3-10.9) 12/29/23 04:14 Hgb 11.6 g/dL (12.0-15.0) L 12/29/23 04:14 Hct 33.3 % (36.0-45.0) L 12/29/23 04:14 Plt Count 183 thou/uL (152-406) 12/29/23 04:14 PT 9.8 SECONDS (9.4-12.5) 12/28/23 05:12 INR 0.87 12/28/23 05:12 Sodium 140 mEq/L (136-145) 12/29/23 04:14 Potassium 4.4 mEq/L (3.5-5.1) 12/29/23 04:14 BUN 20 mg/dL (7-18) H 12/29/23 04:14 Creatinine 0.75 mg/dL (0.55-1.02) 12/29/23 04:14 Glucose 98 mg/dL (74-106) 12/29/23 04:14 Magnesium 1.7 mg/dL (1.6-2.4) 12/28/23 05:12 Total Bilirubin 0.4 mg/dL (0.2-1.0) 12/28/23 05:12 AST 32 U/L (15-37) 12/28/23 05:12 ALT 71 U/L (13-56) H 12/28/23 05:12 Alkaline Phosphatase 103 U/L (45-117) 12/28/23 05:12 Lipase 34 U/L (13-75) 12/28/23 05:12 Home Medications: Losartan Potassium 100 mg PO DAILY 12/09/15 Montelukast Sodium [Singulair] 10 mg PO DAILY 12/09/15 Pravastatin [Pravachol*] 40 mg PO BEDTIME 12/09/15 Amlodipine [Norvasc*] 5 mg PO DAILY #30 tab 12/10/15 Pantoprazole [Protonix Tab*] 40 mg PO DAILY 02/20/22 hydroCHLOROthiazide [Hydrochlorothiazide*] 12.5 mg PO DAILY 12/28/23 Physician Discharge Instructions: Patient was admitted to the hospital for chest pain. She has had multiple stress test including 1 relatively recently. Cardiology recommended coronary angiogram which was completed on 12/27 with the following findings: Findings: 1. Left main, normal. 2. LAD, proximal mild luminal irregularities followed by mid 40% disease at an origin of large diagonal that got proximal 50% disease, then distal mild luminal irregularities. 3. Diagonal, large proximal 40% to 50% percent disease, then mild luminal irregularities. 4. Left circ, mild luminal irregularities. 5. RCA, large, dominant, mild luminal irregularities. 6. LVEDP is 12 mmHg. Plan will be to continue aggressive medical treatment for CAD. Please continue your home medications as previously prescribed Please begin taking baby aspirin 81 mg daily Follow-up with your primary care doctor and cardiology in 1 to 2 weeks. Diet: AHA Activity: Ad carolyn Followup: Raisa Chavarria NP [Primary Care Provider] - 1-2 Weeks Mick Knowles MD [ACTIVE - CAN ADMIT] - 1-2 Weeks Time spent managing pt's care (in minutes): 34
== END 2023-12-29 09:34 | disposition home or self-care (01) ==
LOC: ER 04:44 → ERHOLD 07:09 → 2ND 08:52
PROVIDERS: ADMIT Hospitalist; ATTEND Hospitalist
PROC: 4A023N7 Measurement of Cardiac Sampling and Pressure, Left Heart, Percutaneous Approach (ICD-10-PCS; principal; 2023-12-28)
PROC: B2111ZZ Fluoroscopy of Multiple Coronary Arteries using Low Osmolar Contrast (ICD-10-PCS; 2023-12-28)
DX: I25.110 Atherosclerotic heart disease of native coronary artery with unstable angina pectoris (principal); I10 Essential (primary) hypertension; E78.5 Hyperlipidemia, unspecified; K22.70 Barrett's esophagus without dysplasia; R42 Dizziness and giddiness; J30.9 Allergic rhinitis, unspecified; F98.8 Other specified behavioral and emotional disorders with onset usually occurring in childhood and adolescence; Z79.899 Other long term (current) drug therapy; Z90.49 Acquired absence of other specified parts of digestive tract; Z82.49 Family history of ischemic heart disease and other diseases of the circulatory system; Z82.3 Family history of stroke; Z83.3 Family history of diabetes mellitus; Z80.0 Family history of malignant neoplasm of digestive organs
CPT/HCPCS: 96361; 93005 ×2; 85025 ×2; 81001; 80048 ×2; 36415; 83735; 85610; 85379; 80076; 84484 ×3; 83690; 83880; 71045; 93458; 76937; 96372; 96374; 99285; C1893; Q9966; J1644; J2001; J2470; J2250; J3010; G0378 ×5; J7040; 99152; J0461; J1650

== ENCOUNTER 2024-06-11 11:15 | Emergency (ER) | payer OTHER ==
--- OUTSIDE RECORDS SUMMARY | 2024-06-11 11:20 | XMS REPORT | Continuity of Care Document ---
Author Name Unknown Address [address] 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 C1 [id number] 2019 00:00:00 [place] [address] [id number] 2019 00:00:[address] [facility] C1 [id number] 2019 00:00:[address] [facility] C1 [id number] 2019 00:00:[address] 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 Problem [facility] [id number] Post COVID-19 condition, unspecifie d Problem [facility] [id number] Family history of heart disease Problem [facility] [id number] Lower extremity edema Problem [facility] [id number] Other chronic pain Problem [facility] [id number] Pain in right knee Problem [facility] [id number] Depression , unspecifie d depression type Problem [facility] [id number] Attention deficit disorder, unspecifie d hyperactiv ity presence Problem [facility] [id number] Fatty liver Problem [facility] Memory deficit Memory deficit Problem [facility] [id number] Seasonal allergies Problem [facility] Essential hypertensi on Benign essential HTN Problem [facility] Hyperglyce leslie Hyperglyce leslie Problem [facility] [id number] Anxiety Problem [facility] Thrombocyt openia Thrombocyt openia Problem [facility] [id number] Chronic constipati on Problem [facility] Hyperlipid aemia Hyperlipem ia Problem [facility] [id number] Chronic diarrhea Problem [facility] Leukopenia Leukopenia Problem [facility] Left shoulder pain Left shoulder pain Problem [facility] [id number] Other chest pain Problem [facility] [id number] Personal history of COVID-19 Problem [facility] [id number] Hospital discharge follow-up Problem [facility] [id number] Status post left heart catheteriz ation Problem [facility] [id number] Current moderate episode of major depressive disorder without prior episode Problem [facility] Nasal sinus problem (finding) Sinus problem Problem [facility] Anemia Mild anemia Problem [facility] [id number] August's esophageal ulceration Problem [facility] Social History Social Habit Start Date Stop Date Quantity Comments Source History of Tobacco Use [facility] Sex Assigned At [facility] Smoking Status Start Date Stop Date Source Never Smoker [facility] Medications Ordered Medication Name Filled Medication Name Start Date Stop Date Current Medication? Ordering Clinician Indication Dosage Frequency Signature (SIG) Comments Components Source Macrobid 100 mg capsule - 00:00: 00 Yes 1mg Geoffrey Gunn citalopram 10 mg tablet -06 00:00: 00 Yes mg Geoffrey Gunn atorvastati n 40 mg tablet 1- 00:00: 00 Yes mg Geoffrey Gunn amlodipine 5 mg tablet 2023-05- 00:00: 00 Yes mg Geoffrey Gunn losartan 100 mg tablet 2023-05 2 00:00: 00 Yes mg Geoffrey Gunn buspirone 5 mg tablet - 00:00: 00 Yes mg Geoffrey Gunn hydrochloro thiazide 12.5 mg tablet - 00:00: 00 Yes mg Geoffrey Gunn Citalopram Hydrobromid e 10 MG Citalopram Hydrobromid e 10 MG -20 00:00: 00 No 1{table t} QD Citalopram Hydrobromi de 10 MG pantoprazol e 40 mg tablet,francis yed release 9-05 00:00: 00 Yes mg Geoffrey Gunn pravastatin 40 mg tablet 3- 00:00: 00 Yes Geoffrey Gunn hydrochloro thiazide 12.5 mg tablet 3-25 00:00: 00 Yes Geoffrey Gunn sodium,pota ssium,mag sulfates 17.5 gram-3.13 gram-1.6 gram oral soln 3-11 00:00: 00 Yes Geoffrey Gunn montelukast 10 mg tablet 2-15 00:00: 00 Yes Geoffrey Gunn amlodipine 5 mg tablet 2-15 00:00: 00 Yes Geoffrey Gunn losartan 100 mg tablet 2-15 00:00: 00 Yes Geoffrey Gunn pantoprazol e 40 mg tablet,francis yed release 2022-05 2-10 00:00: 00 Yes Geoffrey Gunn TAKE 1 TABLET DAILY. 2022-05 00:00: 00 09-12 00:00 :00 No 10 Geoffrey Gunn TAKE 1 TABLET DAILY. 2022-05 00:00: 00 09-12 00:00 :00 No 10 Geoffrey Gunn Fluad Quad (6 5yr up)(PF) 60 mcg (15 mcg x 4)/0.5mL IM syringe 2022-05 00:00: 00 Yes Geoffrey Gunn methocarbam ol 500 mg tablet 2022-05 00:00: 00 Yes Geoffrey Gunn prednisone 10 mg tablet 2022-05 00:00: 00 Yes Geoffrey Gunn Ketorolac Tromethamin e Ketorolac Tromethamin e 2022-05 00:00: 00 No [facility]mg [facility] buspirone 10 mg tablet 01-11 00:00: 00 Yes Geoffrey Gunn citalopram 10 mg tablet 01-11 00:00: 00 Yes Geoffrey Gunn TAKE 1 TABLET DAILY. 01-11 00:00: 00 09-12 00:00 :00 No 10 Geoffrey Gunn pantoprazol e 40 mg tablet,francis yed release 9- 00:00: 00 Yes Geoffrey Gunn montelukast 10 mg tablet 20 00:00: 00 Yes Geoffrey Gunn amlodipine 5 mg tablet - 00:00: 00 Yes Geoffrey Gunn citalopram 10 mg tablet 11-16 00:00: 00 Yes Geoffrey Gunn TAKE 1 TABLET DAILY. 11-16 00:00: 00 09-12 00:00 :00 No 10 Geoffrey Gunn TAKE 1 TABLET DAILY. 11-16 00:00: 00 09-12 00:00 :00 No 10 Geoffrey uGnn pravastatin 40 mg tablet 6-28 00:00: 00 Yes 40 Geoffrey Gunn hydrochloro thiazide 25 mg tablet 6-27 00:00: 00 Yes Geoffrey Gunn pantoprazol e 40 mg tablet,francis yed release 6-14 00:00: 00 Yes 40 Geoffrey Gunn buspirone 10 mg tablet 6-08 00:00: 00 Yes Geoffrey Gunn citalopram 10 mg tablet - 00:00: 00 Yes Geoffrey Gunn TAKE 1 TABLET DAILY. 5- 00:00: 00 09-12 00:00 :00 No 10 Geoffrey Gunn amlodipine 5 mg tablet 5- 00:00: 00 Yes 5 Geoffrey Gunn losartan 100 mg tablet 5- 00:00: 00 Yes 100 Geoffrey Gunn montelukast 10 mg tablet - 00:00: 00 Yes 10 Geoffrey Gunn citalopram 10 mg tablet 5- 00:00: 00 Yes Geoffrey Gunn TAKE 1 TABLET DAILY. 5- 00:00: 00 09-12 00:00 :00 No 10 Geoffrey Gunn TAKE 1 TABLET DAILY. 5- 00:00: 00 09-12 00:00 :00 No 10 Geoffrey Gunn pravastatin 40 mg tablet 3-21 00:00: 00 Yes Geoffrey Gunn citalopram 20 mg tablet 3-20 00:00: 00 Yes 20 Geoffrey Gunn TAKE 1 TABLET DAILY. 3-20 00:00: 00 09-12 00:00 :00 No 10 Geoffrey Gunn TAKE 1 TABLET DAILY. 3-20 00:00: 00 09-12 00:00 :00 No 20 Geoffrey Gunn pantoprazol e 40 mg tablet,francis yed release 3-14 00:00: 00 Yes Geoffrey Gunn amlodipine 5 mg tablet 0 2-24 00:00: 00 Yes Geoffrey Gunn losartan 100 mg tablet 2-22 00:00: 00 Yes Geoffrey Gunn montelukast 10 mg tablet 2-22 00:00: 00 Yes Geoffrey Gunn citalopram 20 mg tablet 2-17 00:00: 00 Yes 20 Geoffrey Gunn TAKE 1 TABLET TWICE DAILY. 2-17 00:00: 00 09-12 00:00 :00 No 10 Geoffrey Gunn TAKE 1 TABLET DAILY. 2-17 00:00: 00 09-12 00:00 :00 No 20 Geoffrey Gunn citalopram 20 mg tablet 1-17 00:00: 00 Yes Geoffrey Gunn TAKE 1 TABLET TWICE DAILY. 1-17 00:00: 00 09-12 00:00 :00 No 10 Geoffrey Gunn TAKE 1 TABLET DAILY. 1-17 00:00: 00 09-12 00:00 :00 No 20 Geoffrey Gunn pantoprazol e 40 mg tablet,rfancis yed release 2021-05 2-29 00:00: 00 Yes Geoffrey Gunn citalopram 20 mg tablet 2021-05 2-20 00:00: 00 Yes Geoffrey Gunn buspirone 10 mg tablet 2021-05 2-20 00:00: 00 Yes Geoffrey Gunn pravastatin 40 mg tablet 2021-05 2-13 00:00: 00 Yes Geoffrey Gunn losartan 100 mg tablet 2021-05 1-21 00:00: 00 Yes Geoffrey Gunn buspirone 10 mg tablet 2021-05 1-09 00:00: 00 Yes 10 Geoffrey Gunn montelukast 10 mg tablet 2021-05 0-31 00:00: 00 Yes 10 Geoffrey Gunn pantoprazol e 40 mg tablet,francis yed release 2021-05 0-03 00:00: 00 Yes 40 Geoffrey Gunn citalopram 10 mg tablet 9-26 00:00: 00 Yes Geoffrey Gunn pravastatin 40 mg tablet 9-06 00:00: 00 Yes 40 Geoffrey Gunn buspirone 7.5 mg tablet 8-02 00:00: 00 Yes 75 Geoffrey F Luis A Dose Unknown 2022-0 7-06 00:00: 00 Yes Geoffrey F Luis A buspirone 7.5 mg tablet 2-0 7-06 00:00: 00 Yes 1mg Geoffrey F Luis A Dose Unknown 2-0 7-06 00:00: 00 Yes 20 Geoffrey F Luis A Dose Unknown 2022-0 6- 00:00: 00 Yes Geoffrey F Luis A buspirone 7.5 mg tablet 2021-0 6- 00:00: 00 Yes 1mg Geoffrey F Luis A Dose Unknown 2-0 6- 00:00: 00 Yes 20 Geoffrey F Luis A Dose Unknown 2021-0 5-09 00:00: 00 Yes Geoffrey F Luis A Dose Unknown 2-0 5-09 00:00: 00 Yes Geoffrey F Luis A Dose Unknown 2-0 4-06 00:00: 00 Yes Geoffrey F Luis A Dose Unknown 2021-0 4-06 00:00: 00 Yes Geoffrey F Luis A Dose Unknown 2-0 4-06 00:00: 00 Yes Geoffrey F Luis A Dose Unknown 2-0 4-06 00:00: 00 Yes Geoffrey F Luis A Dose Unknown 2-0 4-06 00:00: 00 Yes Geoffrey F Luis A Dose Unknown 2-0 4-06 00:00: 00 Yes Geoffrey F Luis A Dose Unknown 2-0 4-06 00:00: 00 Yes Geoffrey F Luis A Dose Unknown 2-0 4-06 00:00: 00 Yes Geoffrey F Luis A Dose Unknown 2-0 4-06 00:00: 00 Yes Geoffrey F Luis A Dose Unknown 2-0 2-01 00:00: 00 Yes Geoffrey F Luis A Dose Unknown 2-0 2-01 00:00: 00 Yes Geoffrey F Luis A Celexa 20 mg tablet 2021-0 1-05 00:00: 00 Yes 15mg Geoffrey F Luis A Celexa 20 mg tablet 2020-1 2-08 00:00: 00 Yes 15mg Geoffrey F Luis A buspirone 7.5 mg tablet 2020-1 2-08 00:00: 00 Yes 1mg Geoffrey F Luis A Celexa 20 mg tablet 2020-1 1- 00:00: 00 Yes 15mg Geoffrey F Luis A buspirone 7.5 mg tablet 1 1-11 00:00: 00 Yes 1mg Geoffrey Gunn Celexa 20 mg tablet 1 0-13 00:00: 00 Yes 15mg Geoffrey Gunn buspirone 7.5 mg tablet 1 0-13 00:00: 00 Yes 1mg Geoffrey Gunn Celexa 20 mg tablet 2020-0 9-13 00:00: 00 Yes 1mg Geoffrey Gunn buspirone 7.5 mg tablet 2020-0 9-13 00:00: 00 Yes 1mg Geoffrey Gunn Celexa 20 mg tablet 2020-0 8-17 00:00: 00 Yes 1mg Geoffrey Gunn buspirone 7.5 mg tablet 2020-0 8-17 00:00: 00 Yes 1mg Geoffrey Gunn Celexa 20 mg tablet 0 7-19 00:00: 00 Yes 1mg Geoffrey Gunn buspirone 7.5 mg tablet 0 7-19 00:00: 00 Yes 1mg Geoffrey Gunn Dose Unknown 0 5-24 00:00: 00 Yes Geoffrey Gunn buspirone 7.5 mg tablet 0 5-24 00:00: 00 Yes 1mg Geoffrey Isadora Gunn Dose Unknown 2020-0 5-24 00:00: 00 Yes Geoffrey Gunn Dose Unknown 2020-0 4-15 00:00: 00 Yes Geoffrey Gunn Dose Unknown 2020-0 4-15 00:00: 00 Yes Geoffrey Gunn Celexa 20 mg tablet 2020-0 3-18 00:00: 00 Yes 1mg Geoffrey Gunn trazodone 50 mg tablet 2020-0 3-18 00:00: 00 Yes 12mg Geoffrey Gunn Celexa 20 mg tablet 2020-0 2-23 00:00: 00 Yes 1mg Geoffrey Gunn Celexa 20 mg tablet 2020-0 1-21 00:00: 00 Yes 1mg Geoffrey Gunn buspirone 7.5 mg tablet 2020-0 1-21 00:00: 00 Yes 1mg Geoffrey Gunn Celexa 20 mg tablet 2019-1 2-23 00:00: 00 Yes 1mg Geoffrey Gunn buspirone 7.5 mg tablet 1 2-23 00:00: 00 Yes 1mg Geoffrey Gunn Celexa 20 mg tablet 2019-05 00:00: 00 Yes 1mg Geoffrey Gunn Dose Unknown 2019-05 00:00: 00 Yes Geoffrey Gunn mupirocin 2 % topical ointment 01-21 00:00: 00 Yes 1% Geoffrey Gunn ibuprofen 600 mg tablet 01-21 00:00: 00 Yes 1mg Geoffrey Gunn pravastatin 40 mg tablet 11-19 00:00: 00 Yes 1mg Geoffrey Gunn losartan 100 mg tablet 11-19 00:00: 00 Yes 1mg Geoffrey Gunn montelukast 10 mg tablet 11-19 00:00: 00 Yes 1mg Geoffrey Gunn meclizine 25 mg tablet 11-19 00:00: 00 Yes 1mg Geoffrey Gunn amlodipine 5 mg tablet 11-19 00:00: 00 Yes 1mg Geoffrey Gunn naproxen 500 mg tablet 11-19 00:00: 00 Yes 1mg Geoffrey Gunn Losartan Potassium 100 MG Losartan Potassium 100 [...] 12.5 MG No hydroCHLOR Othiazide 12.5 MG Aspir-81 81 MG Aspir-81 81 MG No 1{table t} QD Aspir-81 81 MG Atorvastati n Calcium 40 MG Atorvastati n Calcium 40 MG No 1{table t} QD Atorvastat in Calcium 40 MG busPIRone HCl 5 MG busPIRone HCl 5 MG No 1{table t} BID busPIRone HCl 5 MG busPIRone HCl 10 MG busPIRone HCl 10 MG No 1{table t} QD busPIRone HCl 10 MG Immunizations Ordered Immunization Name Filled Immunization Name Date Status Comments Source Moderna COVID-19 Vaccine Moderna COVID-19 Vaccine 2021-01-02 15:06:00 Completed [facility] Moderna COVID-19 Vaccine Moderna COVID-19 Vaccine 2021-01-02 15:06:00 Completed [facility] Moderna COVID-19 Vaccine Moderna COVID-19 Vaccine 2021-01-02 15:06:00 Completed [facility] Moderna COVID-19 Vaccine Moderna COVID-19 Vaccine 2021-01-02 15:06:00 Completed [facility] Moderna COVID-19 Vaccine Moderna COVID-19 Vaccine 2021-01-02 15:06:00 Completed [facility] Moderna COVID-19 Vaccine Moderna COVID-19 Vaccine 2021-01-02 15:06:00 Completed [facility] Moderna COVID-19 Vaccine Moderna COVID-19 Vaccine 2021-01-02 15:06:00 Completed [facility] Moderna COVID-19 Vaccine Moderna COVID-19 Vaccine 2021-01-02 15:06:00 Completed [facility] Moderna COVID-19 Vaccine Moderna COVID-19 Vaccine 2021-01-02 15:06:00 Completed [facility] Moderna COVID-19 Vaccine Moderna COVID-19 Vaccine 2021-01-02 15:06:00 Completed [facility] Moderna COVID-19 Vaccine Moderna COVID-19 Vaccine 2021-01-02 15:06:00 Completed [facility] Moderna COVID-19 Vaccine Moderna COVID-19 Vaccine 2021-01-02 00:00:00 Completed Geoffrey Gunn Moderna COVID-19 Vaccine Moderna COVID-19 Vaccine 2020-07-11 15:08:00 Completed [facility] Moderna COVID-19 Vaccine Moderna COVID-19 Vaccine 2020-07-11 15:08:00 Completed [facility] Moderna COVID-19 Vaccine Moderna COVID-19 Vaccine 2020-07-11 15:08:00 Completed [facility] Moderna COVID-19 Vaccine Moderna COVID-19 Vaccine 2020-07-11 15:08:00 Completed [facility] Moderna COVID-19 Vaccine Moderna COVID-19 Vaccine 2020-07-11 15:08:00 Completed [facility] Moderna COVID-19 Vaccine Moderna COVID-19 Vaccine 2020-07-11 15:08:00 Completed [facility] Moderna COVID-19 Vaccine Moderna COVID-19 Vaccine 2020-07-11 15:08:00 Completed [facility] Moderna COVID-19 Vaccine Moderna COVID-19 Vaccine 2020-07-11 15:08:00 Completed [facility] Moderna COVID-19 Vaccine Moderna COVID-19 Vaccine 2020-07-11 15:08:00 Completed [facility] Moderna COVID-19 Vaccine Moderna COVID-19 Vaccine 2020-07-11 15:08:00 Completed [facility] Moderna COVID-19 Vaccine Moderna COVID-19 Vaccine 2020-07-11 15:08:00 Completed [facility] Moderna COVID-19 Vaccine Moderna COVID-19 Vaccine 2020-07-11 00:00:00 Completed Geoffrey Muir Luis A Moderna COVID-19 Vaccine Moderna COVID-19 Vaccine 2020-06-05 15:11:00 Completed [facility] Moderna COVID-19 Vaccine Moderna COVID-19 Vaccine 2020-06-05 15:11:00 Completed [facility] Moderna COVID-19 Vaccine Moderna COVID-19 Vaccine 2020-06-05 15:11:00 Completed [facility] Moderna COVID-19 Vaccine Moderna COVID-19 Vaccine 2020-06-05 15:11:00 Completed [facility] Moderna COVID-19 Vaccine Moderna COVID-19 Vaccine 2020-06-05 15:11:00 Completed [facility] Moderna COVID-19 Vaccine Moderna COVID-19 Vaccine 2020-06-05 15:11:00 Completed [facility] Moderna COVID-19 Vaccine Moderna COVID-19 Vaccine 2020-06-05 15:11:00 Completed [facility] Moderna COVID-19 Vaccine Moderna COVID-19 Vaccine 2020-06-05 15:11:00 Completed [facility] Moderna COVID-19 Vaccine Moderna COVID-19 Vaccine 2020-06-05 15:11:00 Completed [facility] Moderna COVID-19 Vaccine Moderna COVID-19 Vaccine 2020-06-05 15:11:00 Completed [facility] Moderna COVID-19 Vaccine Moderna COVID-19 Vaccine 2020-06-05 15:11:00 Completed [facility] Moderna COVID-19 Vaccine Moderna COVID-19 Vaccine 2020-06-05 00:00:00 Completed Geoffrey Gunn Moderna COVID-19 Vaccine Moderna COVID-19 Vaccine Unknown Completed [facility] Moderna COVID-19 Vaccine Moderna COVID-19 Vaccine Unknown Completed [facility] Moderna COVID-19 Vaccine Moderna COVID-19 Vaccine Unknown Completed [facility] Moderna COVID-19 Vaccine Moderna COVID-19 Vaccine Unknown Completed [facility] Moderna COVID-19 Vaccine Moderna COVID-19 Vaccine Unknown Completed [facility] Moderna COVID-19 Vaccine Moderna COVID-19 Vaccine Unknown Completed [facility] Moderna COVID-19 Vaccine Moderna COVID-19 Vaccine Unknown Completed [facility] Moderna COVID-19 Vaccine Moderna COVID-19 Vaccine Unknown Completed [facility] Moderna COVID-19 Vaccine Moderna COVID-19 Vaccine Unknown Completed [facility] Moderna COVID-19 Vaccine Moderna COVID-19 Vaccine Unknown Completed [facility] Moderna COVID-19 Vaccine Moderna COVID-19 Vaccine Unknown Completed [facility] Moderna COVID-19 Vaccine Moderna COVID-19 Vaccine Unknown Completed [facility] Moderna COVID-19 Vaccine Moderna COVID-19 Vaccine Unknown Completed [facility] Moderna COVID-19 Vaccine Moderna COVID-19 Vaccine Unknown Completed [facility] Vital Signs Vital Name Observation Time Observation Value Comments S adalid height 2024-04-22 14:00:00 67 [in_i] Commo n [facility] weight 2024-04-22 14:00:00 177.6 [lb_av] Co [facility]mon [facility] temperature 2024-04-22 14:00:00 98.1 [degF] Com mon [facility] bmi 2024-04-22 14:00:00 27.81 kg/m2 Comm on [facility] oximetry 2024-04-22 14:00:00 99 % Commo n [facility] respiratory rate 2024-04-22 14:00:00 15 /min [facility] blood pressure systolic 2024-04-22 14:00:00 116 mm[Hg] [facility] blood pressure diastolic 2024-04-22 14:00:00 69 mm[Hg] [facility] height 2024-01-19 11:20:00 67 [in_i] Commo n [facility] weight 2024-01-19 11:20:00 173 [lb_av] Comm on [facility] bmi 2024-01-19 11:20:00 27.09 kg/m2 Comm on [facility] height 2024-01-10 16:20:00 67 [in_i] Commo n [facility] weight 2024-01-10 16:20:00 175 [lb_av] Comm on [facility] bmi 2024-01-10 16:20:00 27.41 kg/m2 Comm on [facility] height 2023-12-18 16:20:00 67 [in_i] Commo n [facility] weight 2023-12-18 16:20:00 175 [lb_av] Comm on [facility] temperature 2023-12-18 16:20:00 99.0 [degF] Com mon [facility] bmi 2023-12-18 16:20:00 27.41 kg/m2 Comm on [facility] height 2023-11-15 08:40:00 67 [in_i] Commo n [facility] weight 2023-11-15 08:40:00 174.6 [lb_av] Co mmon [facility] temperature 2023-11-15 08:40:00 97.2 [degF] Com mon [facility] bmi 2023-11-15 08:40:00 27.34 kg/m2 Comm on [facility] oximetry 2023-11-15 08:40:00 100 % Commo n [facility] respiratory rate 2023-11-15 08:40:00 15 /min [facility] blood pressure systolic 2023-11-15 08:40:00 122 mm[Hg] [facility] blood pressure diastolic 2023-11-15 08:40:00 68 mm[Hg] Common [facility] height 2023-10-16 13:20:00 67 [in_i] Commo n [facility] weight 2023-10-16 13:20:00 172 [lb_av] Comm on [facility] bmi 2023-10-16 13:20:00 26.94 kg/m2 Comm on [facility] height 2023-05-31 14:00:00 67 [in_i] Commo n [facility] weight 2023-05-31 14:00:00 188 [lb_av] Comm on [facility] temperature 2023-05-31 14:00:00 97.6 [degF] Com [facility] bmi 2023-05-31 14:00:00 29.44 kg/m2 Comm on [facility] oximetry 2023-05-31 14:00:00 96 % Commo n [facility] respiratory rate 2023-05-31 14:00:00 16 /min Common [facility] blood pressure systolic 2023-05-31 14:00:00 122 mm[Hg] [facility] blood pressure diastolic 2023-05-31 14:00:00 80 mm[Hg[facility] height 2023-04-28 10:00:00 67 [in_i] Commo n [facility] weight 2023-04-28 10:00:00 188 [lb_av] Comm on [facility] temperature 2023-04-28 10:00:00 97.6 [degF] Com [facility] bmi 2023-04-28 10:00:00 29.44 kg/m2 Comm on [facility] oximetry 2023-04-28 10:00:00 96 % Commo n [facility] respiratory rate 2023-04-28 10:00:00 16 /min Common [facility] blood pressure systolic 2023-04-28 10:00:00 122 mm[Hg] [facility] blood pressure diastolic 2023-04-28 10:00:00 80 mm[Hg] [facility] height 2023-02-09 14:00:00 67 [in_i] Commo n [facility] weight 2023-02-09 14:00:00 185.2 [lb_av] Co mmon [facility] temperature 2023-02-09 14:00:00 97.2 [degF] Com mon [facility] bmi 2023-02-09 14:00:00 29 kg/m2 Commo n [facility] oximetry 2023-02-09 14:00:00 97 % Commo n [facility] respiratory rate 2023-02-09 14:00:00 16 /min Common [facility] blood pressure systolic 2023-02-09 14:00:00 135 mm[Hg] [facility] blood pressure diastolic 2023-02-09 14:00:00 75 mm[Hg] [facility] height 2022-12-27 08:20:00 67 [in_i] Commo n [facility] weight 2022-12-27 08:20:00 188.8 [lb_av] Co on [facility] temperature 2022-12-27 08:20:00 97.9 [degF] Com [facility] bmi 2022-12-27 08:20:00 29.57 kg/m2 Comm on [facility] oximetry 2022-12-27 08:20:00 96 % Commo n [facility] respiratory rate 2022-12-27 08:20:00 16 /min [facility] blood pressure systolic 2022-12-27 08:20:00 134 mm[Hg] [facility] blood pressure diastolic 2022-12-27 08:20:00 68 mm[Hg] [facility] height 2022-10-25 10:00:00 67 [in_i] Commo n [facility] weight 2022-10-25 10:00:00 188.8 [lb_av] Co mmon [facility] temperature 2022-10-25 10:00:00 97.7 [degF] Com [facility] bmi 2022-10-25 10:00:00 29.57 kg/m2 Comm on [facility] oximetry 2022-10-25 10:00:00 97 % Commo n [facility] respiratory rate 2022-10-25 10:00:00 16 /min [facility] blood pressure systolic 2022-10-25 10:00:00 138 mm[Hg] [facility] blood pressure diastolic 2022-10-25 10:00:00 80 mm[Hg] [facility] height 2022-08-25 14:40:00 67 [in_i] Commo n [facility] weight 2022-08-25 14:40:00 189.0 [lb_av] Co mmon [facility] temperature 2022-08-25 14:40:00 98.4 [degF] Com mon [facility] bmi 2022-08-25 14:40:00 29.6 kg/m2 Commo n [facility] oximetry 2022-08-25 14:40:00 96 % Commo n [facility] respiratory rate 2022-08-25 14:40:00 16 /min [facility] blood pressure systolic 2022-08-25 14:40:00 139 mm[Hg] [facility] diastolic 2022-08-25 14:40:00 65 mm[Hg] [facility] height 2022-05-30 14:00:00 67 [in_i] Commo n [facility] weight 2022-05-30 14:00:00 183.6 [lb_av] Co mmon [facility] temperature 2022-05-30 14:00:00 98.4 [degF] Com mon [facility] bmi 2022-05-30 14:00:00 28.75 kg/m2 Comm on [facility] oximetry 2022-05-30 14:00:00 98 % Commo n [facility] respiratory rate 2022-05-30 14:00:00 16 /min Common [facility] blood pressure systolic 2022-05-30 14:00:00 132 mm[Hg] [facility] blood pressure diastolic 2022-05-30 14:00:00 70 mm[Hg] [facility] height 2022-05-30 14:00:00 67 [in_i] Commo n [facility] weight 2022-05-30 14:00:00 183.6 [lb_av] Co on [facility] temperature 2022-05-30 14:00:00 98.4 [degF] Com mon [facility] bmi 2022-05-30 14:00:00 28.75 kg/m2 Comm on [facility] oximetry 2022-05-30 14:00:00 98 % Commo n [facility] respiratory rate 2022-05-30 14:00:00 16 /min [facility] blood pressure systolic 2022-05-30 14:00:00 132 mm[Hg] [facility] blood pressure diastolic 2022-05-30 14:00:00 70 mm[Hg] Common [facility] height 2022-05-19 14:00:00 67 [in_i] Commo n [facility] weight 2022-05-19 14:00:00 186 [lb_av] Comm on [facility] temperature 2022-05-19 14:00:00 100.5 [degF] Co [facility] bmi 2022-05-19 14:00:00 29.13 kg/m2 Comm on [facility] height 2022-02-28 11:00:00 67 [in_i] Commo n [facility] weight 2022-02-28 11:00:00 186 [lb_av] Comm on [facility] temperature 2022-02-28 11:00:00 97.7 [degF] Com mon [facility] bmi 2022-02-28 11:00:00 29.13 kg/m2 Comm on [facility] oximetry 2022-02-28 11:00:00 99 % Commo n [facility] respiratory rate 2022-02-28 11:00:00 17 /min [facility] blood pressure systolic 2022-02-28 11:00:00 128 mm[Hg] [facility] blood pressure diastolic 2022-02-28 11:00:00 78 mm[Hg] [facility] height 2021-10-19 14:00:00 67 [in_i] Commo n [facility] weight 2021-10-19 14:00:00 184 [lb_av] Comm on [facility] temperature 2021-10-19 14:00:00 97.9 [degF] Com [facility] bmi 2021-10-19 14:00:00 28.82 kg/m2 Comm on [facility] oximetry 2021-10-19 14:00:00 98 % Commo n [facility] respiratory rate 2021-10-19 14:00:00 18 /min [facility] blood pressure systolic 2021-10-19 14:00:00 138 mm[Hg] [facility] blood pressure diastolic 2021-10-19 14:00:00 70 mm[Hg] Common [facility] height 2021-07-05 14:00:00 67 [in_i] Commo n [facility] weight 2021-07-05 14:00:00 181 [lb_av] Comm on [facility] temperature 2021-07-05 14:00:00 97.0 [degF] Com [facility] bmi 2021-07-05 14:00:00 28.35 kg/m2 Comm on [facility] oximetry 2021-07-05 14:00:00 99 % Commo n [facility] respiratory rate 2021-07-05 14:00:00 16 /min [facility] blood pressure systolic 2021-07-05 14:00:00 124 mm[Hg] [facility] blood pressure diastolic 2021-07-05 14:00:00 64 mm[Hg] Common [facility] height 2021-05-12 13:00:00 67 [in_i] Commo n [facility] weight 2021-05-12 13:00:00 176 [lb_av] Comm on [facility] temperature 2021-05-12 13:00:00 96.9 [degF] Com mon [facility] bmi 2021-05-12 13:00:00 27.56 kg/m2 Comm on [facility] blood pressure systolic 2021-05-12 13:00:00 128 mm[Hg] [facility] blood pressure diastolic 2021-05-12 13:00:00 58 mm[Hg] [facility] height 2021-02-09 10:00:00 67 [in_i] Commo n [facility] weight 2021-02-09 10:00:00 177 [lb_av] Comm on [facility] temperature 2021-02-09 10:00:00 98.1 [degF] Com [facility] bmi 2021-02-09 10:00:00 27.72 kg/m2 Comm on [facility] oximetry 2021-02-09 10:00:00 99 % Commo n [facility] respiratory rate 2021-02-09 10:00:00 16 /min [facility] blood pressure systolic 2021-02-09 10:00:00 134 mm[Hg] Common [facility] blood pressure diastolic 2021-02-09 10:00:00 69 mm[Hg] [facility] Respiratory Rate 2024-06-06 13:57:00 18.00 /min Geoffrey Gunn BP Systolic 2024-06-06 13:57:00 111 mm[Hg] Claude Gunn BP Diastolic 2024-06-06 13:57:00 71 mm[Hg] Prabhakar Gunn Weight Measured 2024-06-06 13:57:00 174.20 pounds Geoffrey Gunn Height Measured 2024-06-06 13:57:00 66.00 inches Geoffrey F Luis A Body Temperature 2024-06-06 13:57:00 98.80 degrees Geoffrey F Luis A Heart Rate 2024-06-06 13:57:00 81.00 /min Xiomara en F Luis A BP Systolic 2020-01-22 08:51:00 132 mm[Hg] Step hen F Luis A BP Diastolic 2020-01-22 08:51:00 84 mm[Hg] Prabhakar phen F Luis A Weight Measured 2020-01-22 08:51:00 184.40 pounds Geoffrey F Luis A Height Measured 2020-01-22 08:51:00 66.00 inches Geoffrey F Luis A Body Temperature 2020-01-22 08:51:00 98.90 degrees Geoffrey F Luis A Heart Rate 2020-01-22 08:51:00 68.00 /min Xiomara en F Luis A Respiratory Rate 2020-01-22 08:51:00 16.00 /min Geoffrey F Luis A BP Systolic 2018-11-19 11:25:00 125 mm[Hg] Step hen F Luis A BP Diastolic 2018-11-19 11:25:00 78 mm[Hg] Prabhakar phen F Luis A Weight Measured 2018-11-19 11:25:00 188.40 pounds Geoffrey F Luis A Height Measured 2018-11-19 11:25:00 66.00 inches Geoffrey F Luis A Body Temperature 2018-11-19 11:25:00 98.70 degrees Geoffrey F Luis A Heart Rate 2018-11-19 11:25:00 77.00 /min Xiomara en F Luis A Respiratory Rate 2018-11-19 11:25:00 16.00 /min Geoffrey F Luis A Encounters Start Date/Time End Date/Time Encounter Type Admission Type Attending [facility] Facility Care Department Encounter ID Source 2024-01-09 13:59:00 Outpatient LeaRaisa trevino [facility] [id number] [facility] 2023-10-27 10:39:00 Outpatient DeonRaisa [facility] [id number] [facility] 2023-10-16 10:27:00 Outpatient DeonRaisa [facility] [id number] [facility] 2023-10-04 10:35:00 Outpatient Raisa Chavarria [facility] [id number] [facility] 2022-05-26 09:06:00 Outpatient Raisa Chavarria [facility] [id number] [facility] 2022-01-19 09:21:01 Outpatient Raisa Chavarria [facility] [id number] [facility] 2022-01-14 08:49:00 Outpatient Raisa Chavarria [facility] [id number] [facility] 2021-07-01 10:53:00 Outpatient Raisa Chavarria [facility] [id number] [facility] 2021-05-26 14:33:34 Outpatient Raisa Chavarria [facility] [id number] [facility] 2021-05-26 12:21:49 Outpatient Raisa Chavarria [facility] [id number] [facility] 2021-05-26 12:20:26 Outpatient Raisa Chavarria [facility] ST[facility] [id number] [facility] 2021-05-26 12:12:20 Outpatient Ha Hong [facility] [id number] [facility] 2021-05-26 12:11:22 Outpatient [facility] [id number] [facility] 2021-05-26 11:56:30 Outpatient Nicole Gonsales [facility] [id number] [facility] 2021-05-26 11:06:46 Outpatient Nicole Gonsales [facility] [id number] [facility] 2021-05-26 11:04:09 Outpatient Nicole Gonsales [facility] [id number] [facility] 2021-05-26 11:03:53 Outpatient Nicole Gonsales [facility] [id number] [facility] 2021-05-26 11:02:30 Outpatient Nicole Gonsales [facility] [id number] [facility] 2021-05-26 10:59:33 Outpatient Nicole Gonsales STLC STLC [id number] [facility] 2024-06-06 13:40:27 2024-06-06 13:40:27 Outpatient SFA SFA [id number] Geoffrey Gunn 2024-06-06 00:00:00 2024-06-06 00:00:00 Outpatient Visit SFA [id number] Geoffrey Gunn 2024-05-27 00:00:00 2024-05-27 00:00:00 (TEL) STLMLC STL[facility]C [id number] [facility] 2024-04-22 00:00:00 2024-04-22 00:00:00 OFFICE VISIT ESTAB PT LEVEL 4 [facility]LMLC STLMLC [id number] [facility] 2024-03-06 00:00:00 2024-03-06 00:00:00 (TEL) STLMLC STLMLC [id number] [facility] 2024-02-20 00:00:00 2024-02-20 00:00:00 (WEB) STLMLC STLMLC [id number] [facility] 2024-02-20 00:00:00 2024-02-20 00:00:00 (WEB) STLMLC STLMLC [id number] [facility] 2024-01-19 00:00:00 2024-01-19 00:00:00 OFFICE VISIT ESTAB PT LEVEL 4 [facility]LMLC STLMLC [id number] [facility] 2024-01-17 00:00:00 2024-01-17 00:00:00 (TEL) STLMLC STLMLC [id number] [facility] 2024-01-17 00:00:00 2024-01-17 00:00:00 (TEL) STLMLC STLMLC [id number] [facility] 2024-01-10 00:00:00 2024-01-10 00:00:00 OFFICE VISIT ESTAB PT LEVEL 4 [facility] STL[facility]C [id number] [facility] 2023-12-18 00:00:00 2023-12-18 00:00:00 OFFICE VISIT ESTAB PT LEVEL 4 [facility]LMLC STLMLC [id number] [facility] 2023-12-18 00:00:00 2023-12-18 00:00:00 (TEL) STLMLC STLMLC [id number] [facility] 2023-11-15 00:00:00 2023-11-15 00:00:00 OFFICE VISIT ESTAB PT LEVEL 4 [facility]LMLC STLMLC [id number] [facility] 2023-10-31 00:00:00 2023-10-31 00:00:00 (TEL) STLMLC STLMLC [id number] [facility] 2023-10-26 00:00:00 2023-10-26 00:00:00 (TEL) STLMLC STLMLC [id number] [facility] 2023-10-16 00:00:00 2023-10-16 00:00:00 OFFICE VISIT ESTAB PT LEVEL 3 [facility]LMLC STLMLC [id number] [facility] 2023-08-31 00:00:00 2023-08-31 00:00:00 (TEL) STLMLC STLMLC [id number] [facility] 2023-07-21 00:00:00 2023-07-21 00:00:00 (TEL) STLMLC STLMLC [id number] [facility] 2023-06-18 00:00:00 2023-06-18 00:00:00 (TEL) STLMLC STLMLC [id number] [facility] 2023-06-13 00:00:00 2023-06-13 00:00:00 (TEL) STLMLC STLMLC [id number] [facility] 2023-05-31 00:00:00 2023-05-31 00:00:00 SUB ANNUAL MCR WELLNESS VISIT STLMLC STLMLC [id number] [facility] 2023-04-28 00:00:00 2023-04-28 00:00:00 OFFICE VISIT ESTAB PT LEVEL 4 [facility]LMLC STLMLC [id number] [facility] 2023-02-14 00:00:00 2023-02-14 00:00:00 (TEL) STLMLC STLMLC [id number] [facility] 2023-02-09 00:00:00 2023-02-09 00:00:00 OFFICE VISIT ESTAB PT LEVEL 3 [facility]LMLC STLMLC [id number] [facility] 2022-12-27 00:00:00 2022-12-27 00:00:00 OFFICE VISIT ESTAB PT LEVEL 4 [facility]LMLC STLMLC [id number] [facility] 2022-11-25 00:00:00 2022-11-25 00:00:00 (TEL) STLMLC STLMLC [id number] [facility] 2022-10-25 00:00:00 2022-10-25 00:00:00 OFFICE VISIT ESTAB PT LEVEL 3 STLMLC STLMLC [id number] [facility] 2022-08-25 00:00:00 2022-08-25 00:00:00 OFFICE VISIT ESTAB PT LEVEL 3 STLMLC STLMLC [id number] [facility] 2022-05-30 00:00:00 2022-05-30 00:00:00 OFFICE VISIT EST PT LEVEL 3 [facility]LMLC STLMLC [id number] [facility] 2022-05-30 00:00:00 2022-05-30 00:00:00 SUB ANNUAL MCR WELLNESS VISIT STLMLC STLMLC [id number] [facility] 2022-05-23 00:00:00 2022-05-23 00:00:00 (TEL) STLMLC STLMLC [id number] [facility] 2022-05-19 00:00:00 2022-05-19 00:00:00 OFFICE VISIT ESTAB PT LEVEL 3 STLMLC STLMLC [id number] [facility] 2022-05-18 00:00:00 2022-05-18 00:00:00 (TEL) STLMLC STLMLC [id number] [facility] 2022-05-12 00:00:00 2022-05-12 00:00:00 (TEL) STLMLC STLMLC [id number] [facility] 2022-04-28 00:00:00 2022-04-28 00:00:00 (TEL) STLMLC STLMLC [id number] [facility] 2022-04-20 08:13:51 2022-04-20 08:13:51 Outpatient SFA [facility] [id number] Geoffrey Gunn 2022-03-01 00:00:00 2022-03-01 00:00:00 (TEL) STLMLC STLMLC [id number] [facility] 2022-02-28 00:00:00 2022-02-28 00:00:00 OFFICE VISIT EST PT LEVEL 3 STLMLC STLMLC [id number] [facility] 2022-01-17 00:00:00 2022-01-17 00:00:00 (TEL) STLMLC STLMLC [id number] [facility] 2021-10-19 00:00:00 2021-10-19 00:00:00 OFFICE VISIT EST PT LEVEL 3 STLMLC STLMLC [id number] [facility] 2021-07-05 00:00:00 2021-07-05 00:00:00 OFFICE VISIT ESTAB PT LEVEL 4 STLMLC STLMLC [id number] [facility] 2021-05-12 00:00:2021-05-12 00:00:00 OFFICE VISIT ESTAB PT LEVEL 4 STLMLC STLMLC [id number] [facility] 2021-04-29 00:00:00 2021-04-29 00:00:00 (TEL) STLMLC STLMLC [id number] [facility] 2021-03-30 00:00:00 2021-03-30 00:00:00 (TEL) STLMLC STLMLC [id number] [facility] 2021-03-29 00:00:00 2021-03-29 00:00:00 (TEL) STLMLC STLMLC [id number] [facility] 2021-03-26 00:00:00 2021-03-26 00:00:00 (TEL) STLMLC STLMLC [id number] [facility] 2021-03-22 00:00:00 2021-03-22 00:00:00 (TEL) STLMLC STLMLC [id number] [facility] 2021-02-09 00:00:00 2021-02-09 00:00:00 OFFICE VISIT ESTAB PT LEVEL 4 STLMLC STLMLC [id number] [facility] 2021-01-08 00:00:00 2021-01-08 00:00:00 (TEL) STLMLC STLMLC [id number] [facility] 2020-11-30 00:00:00 2020-11-30 00:00:00 (TEL) STLMLC STLMLC [id number] [facility] 2020-11-27 00:00:00 2020-11-27 00:00:00 (TEL) STLMLC STLMLC [id number] [facility] 2020-08-25 00:00:00 2020-08-25 00:00:00 Outpatient STLMLC STLMLC [id number] [facility] 2020-08-11 00:00:00 2020-08-11 00:00:00 Outpatient STLMLC STLMLC [id number] [facility] 2020-06-19 00:00:00 2020-06-19 00:00:00 Outpatient [facility] [id number] [facility] 2020-05-19 00:00:00 2020-05-19 00:00:00 Outpatient STLMLC STLMLC [id number] [facility] 2020-02-19 00:00:00 2020-02-19 00:00:00 Outpatient [facility]LMLC [facility]C [id number] [facility] 2019-11-12 11:00:00 2019-11-12 11:00:[address] [facility] [id number] [facility] 2019-11-11 11:29:00 2019-11-11 11:29:[address] [facility] [id number] [facility] 2019-06-13 08:25:00 2019-06-13 08:25:[address] [facility] [id number] [facility] 2019-06-11 11:15:00 2019-06-11 11:15:[address] [facility] [id number] [facility] 2019-05-30 14:30:00 2019-05-30 14:30:00 [facility] [id number] [facility] 2019-05-10 08:20:00 2019-05-10 08:20:[address] [facility] [id number] [facility] 2017-08-14 10:15:00 2017-08-14 10:15:[address] [facility] [id number] [facility] 2017-08-02 13:30:00 2017-08-02 13:30:[address] [facility] [id number] [facility] Results Test Description Test Time Test Comments Results Result Co mments Source CBC W/AUTO DIFF WITH [id number] 03:19:09* Test Item Value Reference Range Interpretation [...] 0.00-0.10 ABS NUCLEATED RBCS (test code = 04430) 0.00 K/UL 0.00-0.11 COMPREHENSIVE METABOLIC [id number] 03:03:47* Test Item Value Reference Range Interpretation Comme nts GLUCOSE (test code = 2217) 100 MG/DL 70-99 H BUN (test code = 2208) 17 MG/DL 8-23 CREATININE (test code = 2214) 0.83 MG/DL 0.60-1.30 eGFR (2020 CKD-EPI) (test code = 95817) 78 ML/MIN/1.73 >60 CALC BUN/CREAT (test code = 2235) 20 RATIO 6-28 SODIUM (test code = 2231) 146 MEQ/L 133-146 POTASSIUM (test code = 2228) 4.1 MEQ/L 3.5-5.4 CHLORIDE (test code = 2215) 109 MEQ/L 95-107 H CARBON DIOXIDE (test code = 2206) 26 MEQ/L 19-31 CALCIUM (test code = 2209) 9.4 MG/DL 8.5-10.5 PROTEIN, TOTAL (test code = 2229) 6.7 G/DL 6.1-8.3 ALBUMIN (test code = 2201) 4.2 G/DL 3.5-5.2 CALC GLOBULIN (test code = 2240) 2.5 G/DL 1.9-3.7 CALC A/G RATIO (test code = 2234) 1.7 RATIO 1.0-2.6 BILIRUBIN, TOTAL (test code = 2207) 0.7 MG/DL See_Comment [Automated me ssage] The system which generated this result transmitted reference range: <=1.2. The reference range was not used to interpret this result as normal/abnormal. ALKALINE PHOSPHATASE (test code = 4) 103 U/L 40-140 AST (test code = 2218) 22 U/L 9-40 ALT (test code = 2219) 13 U/L 5-40 COMPREHENSIVE METABOLIC [id number] 00:00:00* Test Item Value Reference Range Interpretation Comme nts GLUCOSE (test code = 2217) 100 MG/DL BUN (test code = 2208) 17 MG/DL CREATININE (test code = 2214) 0.83 MG/DL eGFR (2020 CKD-EPI) (test co de = 51854) 78 ML/MIN/1.73 CALC BUN/CREAT (test code = 2235) 20 RATIO SODIUM (test code = 2231) 146 MEQ/L POTASSIUM (test code = 2228) 4.1 MEQ/L CHLORIDE (test code = 2215) 109 MEQ/L CARBON DIOXIDE (test code = 2206) 26 MEQ/L CALCIUM (test code = 2209) 9.4 MG/DL PROTEIN, TOTAL (test code = 2229) 6.7 G/DL ALBUMIN (test code = 2201) 4.2 G/DL CALC GLOBULIN (test code = 2240) 2.5 G/DL CALC A/G RATIO (test code = 2234) 1.7 RATIO BILIRUBIN, TOTAL (test code = 2207) 0.7 MG/DL ALKALINE PHOSPHATASE (test code = 2204) 103 U/L AST (test code = 2218) 22 U/L ALT (test code = 2219) 13 U/L Geoffrey Muir Luis APSYCHIATRIC W/AUTO [id number] 00:00:00* Test Item Value Reference Range Interpretation Comme nts WBC (test code = 1001) 4.0 K/UL RBC (test code = 1002) 3.97 M/UL HEMOGLOBIN (test code = 1003) 12.7 G/DL HEMATOCRIT (test code = 1004) 38.6 % MCV (test code = 1005) 97.2 fL MCH (test code = 1006) 32.0 PG MCHC (test code = 1007) 32.9 G/DL RDW (test code = 1038) 12.0 % NEUTROPHILS (test code = 1008) 56.6 % LYMPHOCYTES (test code = 1010) 34.4 % MONOCYTES (test code = 1011) 7.5 % EOSINOPHILS (test code = 1012) 1.0 % BASOPHILS (test code = 1013) 0.5 % IMMATURE GRANULOCYTES (test code = 1036) 0.0 % NUCLEATED RBCS (test code = 1065) 0.0 /100WBC'S PLATELET COUNT (test code = 1015) 85 K/UL ABSOLUTE NEUTROPHILS (test c ode = 1066) 2.25 K/UL ABSOLUTE LYMPHOCYTES (test c ode = 1067) 1.37 K/UL ABSOLUTE MONOCYTES (test cod e = 1068) 0.30 K/UL ABSOLUTE EOSINOPHILS (test c ode = 1040) 0.04 K/UL ABSOLUTE BASOPHILS (test cod e = 1069) 0.02 K/UL ABS IMMATURE GRANULOCYTES (t est code = 1020) 0.00 K/UL ABS NUCLEATED RBCS (test cod e = 74912) 0.00 K/UL Geoffrey Isadora VickersH, THIRD [id number] 00:00:00* Test Item Value Reference Range Interpretation Comme nts TSH, THIRD GENERATION (test code = 2821) 1.820 UIU/ML Geoffrey GunnSARS-CoV-2 (COVID-19) by RT-PCR (HIGH RISK)2020-02-06 00:00:00* Test Item Value Reference Range Interpretation Comme nts SARS-CoV-2 INTERPRETATION (test code = 88617) Negative SOURCE (test code = 66854) Nasal_Swab_in _VTM__ UTM Geoffrey Gunn Notes Date/Time Note Provider Source Geoffrey Gunn [facility]
[2024-06-11 12:20] LABS: Absolute Lymphocytes (CBC) 1.6 K/uL (0.7-4.9); Absolute Monocytes 0.5 K/uL (0.1-1.3); Basophils % 0.2 % (0-1.3); Eosinophils % 0.1 % (0-4.4); Hematocrit 40.6 % (36.0-45.0); Hemoglobin 14.1 g/dL (12.0-15.0); Lymphocytes % 22.7 % (15.3-44.8); MCH 33.1 pg (27.0-35.0); MCHC 34.8 g/dL (32.0-36.0); MCV 94.9 fL (80-100); MPV 9.1 fL (7.6-11.3); Monocytes % 6.6 % (3.3-12.3); Neutrophils % 70.4 % (41.7-73.7); Nucleated Red Blood Cells % 0.1 % (0-0); Platelets 200 thou/uL (152-406); RBC Red Blood Cell Count 4.28 M/uL (3.86-4.86); Red Cell Distribution Width 12.4 % (12.1-15.2)
[2024-06-11 12:35] LABS: Specific Gravity 1.016 (1.005-1.030); Sqamous Epithelial <5 /HPF (None Seen); Urine Bacteria None Seen /HPF (<20); Urine Bilirubin NEGATIVE (Negative); Urine Blood Negative (Negative); Urine Clarity Turbid (Clear); Urine Color Light-Yellow (Yellow); Urine Culture Reflex Order NOT NEEDED; Urine Glucose NEGATIVE (Negative); Urine Ketones NEGATIVE (Negative); Urine Microscopic Reflex YN ORDER UMIC; Urine Mucus Slight /HPF (None Seen); Urine Nitrite NEGATIVE (Negative); Urine Protein NEGATIVE (Negative); Urine RBC <5 /HPF (None Seen); Urine Urobilinogen Normal (Normal); Urine WBC <5 /HPF (<5); Urine pH 5.5 (5.0-7.0)
[2024-06-11 12:40] LABS: Albumin 4.2 g/dL (3.4-5.0); Albumin/Globulin Ratio 1.1 (1.1-1.8); Anion Gap 11.3 mEq/L (5.0-15.0); Bilirubin Total 1.2 mg/dL (0.2-1.0); Globulin 3.7 g/dL (2.3-3.5); Potassium 3.3 mEq/L (3.5-5.1); Protein, Total 7.9 g/dL (6.4-8.2)
--- NOTE | 2024-06-11 13:13 | RAD REPORT ---
EXAMINATION: CT ABDOMEN AND PELVIS WITH CONTRAST CLINICAL INDICATION: Female, 68 years old.urinary symptoms s/p 2 rounds of abx TECHNIQUE: CT abdomen and pelvis was performed, after the administration of IV contrast, as per [facility] protocol. Axial, sagittal and coronal reconstructions were obtained. One or more of the following dose reduction techniques were used: Automated exposure control, adjustment of the mA and/o r kV according to patient size, and/or iterative reconstruction. Unless otherwise specified, incidental findings do not require dedicated imaging follow-up. [id number]. COMPARISON: 10/14/2023 FINDINGS: LOWER CHEST: No acute process identified.No significant pericardial effusion. Coronary artery calcifi cations present.Mild circumferential thickening of the distal esophagus which could reflect esophagitis. UPPER GI: No significant abnormality. LIVER: No significant focal abnormality. GALLBLADDER/BILE DUCTS: Cholecystectomy. Mild extra-hepatic biliary ductal dilatation is likely relat ed to the post-cholecystectomy state. Consider correlating with LFT's.? PANCREAS: No mass, ductal dilation, or juan josé-pancreatic fluid. SPLEEN: Unremarkable. ADRENALS: No adrenal masses. KIDNEYS AND URETERS: No hydronephrosis.No suspicious renal mass. ABDOMINAL AORTA AND OTHER VESSELS: Mild atherosclerotic changes. PERITONEUM: No abnormal free fluid. No free air. LYMPH NODES: No pathologic lymphadenopathy. ABDOMINAL WALL: Small fat containing umbilical hernia. SMALL BOWEL/COLON: Small bowel has normal course and caliber. No colonic wall thickening or pericolon ic inflammatory changes.Normal appendix. URINARY BLADDER: Underdistended but grossly unremarkable. REPRODUCTIVE ORGANS: No pathologic process. MUSCULOSKELETAL: Multilevel degenerative changes in the spine. No acute fracture. ADDITIONAL FINDINGS: None. IMPRESSION: No acute or significant abnormalities seen in the abdomen or pelvis.
--- NOTE | 2024-06-11 13:42 | EDPHYS ---
Physician Documentation [facility] Name: Korin Coon Age: 68 yrs Sex: Female : 1955 Arrival Date: 06/11/2024 Time: 11:15 Bed 13 Private MD: ED Physician Lopez Gomes HPI: 06/11 12:13 This 68 yrs old Female presents to ER via Ambulatory with complaints of Urinary Problem.rn 12:13 The patient presents with urinary symptoms, dysuria, frequency. Onset: The rn symptoms/episode began/occurred 2 week(s) ago. Modifying factors: The symptoms are alleviated by nothing, the symptoms are aggravated by urinating. Severity of symptoms: At their worst the symptoms were mild, in the emergency department the symptoms are unchanged. The patient has not experienced similar symptoms in the past. Patient reports has had a UTI for 2 weeks, is on her second round of antibiotics and not improving. No fever or chills. No vomiting. No upper back pain. No abdominal pain. Put on Augmentin and now on Macrobid. Does not have culture results. 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 - Social history:: Smoking status: Patient denies any tobacco usage or history of. - Family history:: not pertinent. - Hospitalizations: : No recent hospitalization is reported. ROS: 12:13 Constitutional: Negative for fever, chills, and weight loss, Cardiovascular: Negative rn for chest pain, palpitations, and edema, Respiratory: Negative for shortness of breath, cough, wheezing, and pleuritic chest pain, Abdomen/GI: Negative for abdominal pain, nausea, vomiting, diarrhea, and constipation, Back: Negative for injury and pain, : Positive for dysuria and frequency Exam: 12:13 Constitutional: This is a well developed, well nourished patient who is awake, alert, rn and in no acute distress. Cardiovascular: Regular rate and rhythm. No pulse deficits. Abdomen/GI: Soft, non-tender Back: No CVA tenderness Vital Signs: 11:33 BP 125 / 79; Pulse 96; Resp 16; Temp 97.6; Pulse Ox 100% on R/A; iw 13:05 BP 121 / 62; Pulse 73; Resp 18; Pulse Ox 97% on R/A; mb9 13:53 BP 118 / 78; Pulse 70; Resp 16; Pulse Ox 100% on R/A; mb9 MDM: 11:21 Medical Screening Exam initiated rn 13:41 Differential diagnosis: urinary tract infection, Dehydration, urinary tract infection, rn spasm. Data reviewed: vital signs, nurses notes, lab test result(s), radiologic studies, CT scan, and as a result, I will discharge patient. Counseling: I had a detailed discussion with the patient and/or guardian regarding the historical points, exam findings, and any diagnostic results supporting the discharge/admit diagnosis, lab results, radiology results, the need for outpatient follow up, to return to the emergency department if symptoms worsen or persist or if there are any questions or concerns that arise at home. Special discussion: I discussed with the patient/guardian in detail that at this point there is no indication for admission to the hospital. It is understood, however, that if the symptoms persist or worsen the patient needs to return immediately for re-evaluation. ED course: Urinalysis not convincing for UTI, likely improving on her second antibiotic, still taking Macrobid, no indication for change of antibiotics as she does not have systemic symptoms, urinalysis shows improvement in CT does not show pyelonephritis or ascending infection. Will discharge home with completion of her Macrobid and return precautions. 06/11 11:38 Order name: CBC with Diff; Complete Time: 13:03 rn 06/11 11:38 Order name: CMP; Complete Time: 13:03 rn 06/11 11:38 Order name: Urinalysis w/ reflexes; Complete Time: 13:03 rn 06/11 11:38 Order name: CT Abd/Pelvis - IV Contrast Only; Complete Time: 13:13 rn 06/11 11:38 Order name: IV Saline Lock; Complete Time: 12:11 rn 06/11 11:38 Order name: Labs collected and sent; Complete Time: 12:11 rn Administered Medications: No medications were administered Disposition Summary: 06/11/24 13:42 Discharge Ordered Notes: Location: Home rn Problem: new rn Symptoms: have improved rn Condition: Stable rn Diagnosis - Dysuria rn Followup: rn - With: Private Physician - When: As needed - Reason: Recheck today's complaints, Re-evaluation by your physician Discharge Instructions: - Discharge Summary Sheet rn - Dysuria rn Forms: - Medication Reconciliation Form rn - Antibiotic sourcing internship - Prescription Opioid Use rn - Patient Portal Instructions rn - Leadership Thank You Letter rn Signatures: Dispatcher [employer] Kimberly De La Cruz RN RN iw Nieto, Roman, MD MD rn
--- NOTE | 2024-06-11 13:42 | ER ---
Nurse's Notes [facility] Name: Korin Coon Age: 68 yrs Sex: Female : 1955 Arrival Date: 06/11/2024 Time: 11:15 Bed 13 Private MD: Diagnosis: Dysuria Presentation: 06/11 11:33 Chief complaint: Patient states: UTI since May 28 , has been on 2 different antibiotics iw , not getting better. Coronavirus screen: At this time, the client does not indicate any symptoms associated with coronavirus-19. Ebola Screen: No symptoms or risks identified at this time. Initial Sepsis Screen: Does the patient meet any 2 criteria? No. Patient's initial sepsis screen is negative. Does the patient have a suspected source of infection? No. Patient's initial sepsis screen is negative. Risk Assessment: Do you want to hurt yourself or someone else? Patient reports no desire to harm self or others. Onset of symptoms was May 28, 2024. 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 - Social history:: Smoking status: Patient denies any tobacco usage or history of. - Family history:: not pertinent. - Hospitalizations: : No recent hospitalization is reported. Screenin:00 [facility] ED Fall Risk Assessment (Adult) History of falling in the last 3 months, mb9 including since admission No falls in past 3 months (0 pts) Confusion or Disorientation No (0 pts) Intoxicated or Sedated No (0 pts) Impaired Gait No (0 pts) Mobility Assist Device Used No (0 pt) Altered Elimination No (0 pt) Score/Fall Risk Level 0 - 2 = Low Risk Oriented to surroundings, Maintained a safe environment, Educated pt \T\ family on fall prevention, incl call for assistance when getting out of bed. Abuse screen: Denies threats or abuse. Nutritional screening: No deficits noted. Tuberculosis screening: No symptoms or risk factors identified. Assessment: 12:12 General: Appears in no apparent distress. Behavior is calm, cooperative. Pain: Denies mb9 pain. Neuro: Simon Agitation-Sedation Scale (RASS): 0 - Alert and Calm Level of Consciousness is awake, alert, obeys commands, Oriented to person, place, time, situation, Appropriate for age. Cardiovascular: Patient's skin is warm and dry. Respiratory: Airway is patent Respiratory effort is even, unlabored, Respiratory pattern is regular, symmetrical. GI: Abdomen is round non-distended, Bowel sounds present X 4 quads. : Reports burning with urination. EENT: No signs and/or symptoms were reported regarding the EENT system. Derm: Skin is pink, warm \T\ dry. Musculoskeletal: Range of motion: intact in all extremities. 13:53 Reassessment: No changes from previously documented assessment. Patient and/or family mb9 updated on plan of care and expected duration. Pain level reassessed. Patient is alert, oriented x 3, equal unlabored respirations, skin warm/dry/pink. Vital Signs: 11:33 BP 125 / 79; Pulse 96; Resp 16; Temp 97.6; Pulse Ox 100% on R/A; iw 13:05 BP 121 / 62; Pulse 73; Resp 18; Pulse Ox 97% on R/A; mb9 13:53 BP 118 / 78; Pulse 70; Resp 16; Pulse Ox 100% on R/A; mb9 ED Course: 11:18 Patient arrived in ED. mr 11:21 Lopez Gomes MD is Attending Physician. rn 11:34 Triage completed. iw 11:34 Arm band placed on. iw 11:55 Jonna Burger, RN is Primary Nurse. mb9 12:00 Placed in gown. Bed in low position. Call light in reach. Side rails up X 1. Provided mb9 Education on: press call light if needing anything. Client placed on continuous cardiac and pulse oximetry monitoring. NIBP monitoring applied. 12:11 CBC with Diff Sent. mb9 12:11 CMP Sent. mb9 12:11 Urinalysis w/ reflexes Sent. mb9 12:11 Initial lab(s) drawn, by mi, sent to lab. Urine collected:. Inserted saline lock: 20 mb9 gauge in right antecubital area, using aseptic technique. Blood collected. Flushed with 10 mL NS. 12:13 No provider procedures requiring assistance completed. mb9 12:58 CT Abd/Pelvis - IV Contrast Only In Process Unspecified. EDMS 13:53 IV discontinued, intact, bleeding controlled, No redness/swelling at site. Pressure mb9 dressing applied. Administered Medications: No medications were administered Medication: 12:13 VIS not applicable for this client. mb9 Outcome: 13:42 Discharge ordered by . rn 13:53 Discharged to home ambulatory, mb9 13:53 Condition: stable 13:53 Discharge instructions given to patient, Instructed on discharge instructions, follow up and referral plans. Demonstrated understanding of instructions, follow-up care, 13:54 Patient left the ED. mb9 Signatures: Dispatcher [employer] EDMS Jonna Lamb, Reg Reg Kimberly Gaston, Lopez Jackson RN, MD MD rn Wilkerson, Mary Beth, CARIDAD RN mb9
[2024-06-11 16:31] VITALS: TEMP 97.6
[2024-06-11 16:33] VITALS: BP 118/78; O2SAT 100
== END 2024-06-11 13:54 | disposition home or self-care (01) ==
LOC: ER 11:15
DX: R30.0 Dysuria (principal); R35.0 Frequency of micturition
CPT/HCPCS: 85025; 81001; 36415; 80053; 74177; Q9967